=== PATIENT | male | born 1945 | race Caucasian/White ===

== ENCOUNTER 2017-06-22 02:40 | Inpatient (IN) | payer MEDICARE, BC ==
[~2017-06-22] VITALS: Ht 198.1 cm; Wt 64.9 kg
[2017-06-22] VITALS (18 sets, daily range): BP systolic 116–169; BP diastolic 61–97; Ht 198.1 cm; Wt 64.9 kg
[~2017-06-22 02:40] MED LIST changes: -SIMV-49 PO; -TRAM-420 PO
--- NOTE | 2017-06-22 02:41 | ER Report ---
History and Physical Time Seen By MD: 02:40 HPI/ROS CHIEF COMPLAINT: Ground-level fall, left hip pain HISTORY OF PRESENT ILLNESS: 72-year-old male fell at home. He is brought in by EMS complaining of left hip pain. Patient has a previous right hip fracture status post surgery. Patient has other extensive past medical history COPD, coronary artery disease status post a stent, squamous cell cancer status post chemotherapy. Patient denies syncope. He states he was trying to protect his right hip when he fell onto his left side. Patient denies head impact, neck pain, chest pain, shortness of breath. Patient denies recent illness. REVIEW OF SYSTEMS: Respiratory: No cough, no dyspnea. Cardiovascular: No chest pain, no palpitations. Gastrointestinal: No vomiting, no abdominal pain. Musculoskeletal: As above Allergies: Coded Allergies: Penicillins (Verified Allergy, Mild, CAN'T REMEMBER, 06/22/17) latex (Verified Allergy, Mild, RASH, 06/22/17) Home Meds Active Scripts Folic Acid (FOLIC ACID) 1 Mg Tablet, 1 MG PO QDAY, #90 TAB 3 Refills Prov:JASON BARBOZA ERP CONSULTANT-BC, ONC 06/09/17 Ergocalciferol (Vitamin D2) (VITAMIN D2) 50,000 Unit Capsule, 26680 UNIT PO weekly for 120 Days, #12 CAPSULE Prov:JASON BARBOZA ERP CONSULTANT-BC, ONC 04/21/17 Reported Medications Simvastatin (SIMVASTATIN) 20 Mg Tablet, 20 MG PO HS, TAB 06/22/17 Allopurinol (ZYLOPRIM) 300 Mg Tablet, 300 MG PO QDAY, TAB 03/29/16 Hydrocodone Bit/Acetaminophen (HYDROCODON-ACETAMINOPHEN 5-325) 1 Each Tablet, 1- 2 EACH PO Q4-6H Y for PAIN, TAB 03/29/16 Calcium Citrate/Vitamin D3 (CALCITRATE + VIT D CAPLET) 1 Each Tablet, 1 EACH PO QDAY 09/13/15 Finasteride (FINASTERIDE) 5 Mg Tablet, 5 MG PO QDAY 04/27/14 Tamsulosin Hcl (Flomax) 0.4 Mg Cap.sr.24h, 0.4 MG PO DAILY 03/14/12 Discontinued Reported Medications Hydrocodone Bit/Acetaminophen (HYDROCODON-ACETAMINOPHEN 5-325) 1 Each Tablet, 1 EACH PO Q4H, TAB 09/13/15 Simvastatin (Zocor) 40 Mg Tablet, 20 MG PO QHS, 0 Refills 03/02/09 Discontinued Scripts Oxycodone Hcl/Acetaminophen (PERCOCET 5-325 MG TABLET) 1 Each Tablet, 1 EACH PO Q4H Y for PAIN, #20 TAB 0 Refills Prov:DIONTE LOPEZ MD 03/29/16 Past Medical/Surgical History 1. 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 2. History of myocardial infarction, status post stenting of ascending coronary artery in 1996. 3. History of peptic ulcer disease, status post truncal vagotomy and pyloroplasty. 4. Hypertension. 5. Hyperlipidemia. 6. Chronic obstructive pulmonary disease. Reviewed Nurses Notes: Yes Old Medical Records Reviewed: Yes Hx Smoking: Yes Smoking Status: Former Smoker Exposure to Second Hand Smoke?: No Hx Substance Use Disorder: No Hx Alcohol Use: Yes Constitutional Vital Sign - Last 24 Hours 06/22/17 06/22/17 06/22/17 06/22/17 02:40 02:42 02:55 03:10 Temp 98.4 Pulse 84 83 78 84 Resp 14 B/P (MAP) 141/81 (101) 141/81 Pulse Ox 98 98 98 98 O2 Delivery Room Air 06/22/17 06/22/17 06/22/17 06/22/17 03:25 03:38 03:40 03:55 Pulse 76 77 80 B/P (MAP) 186/99 (128) Pulse Ox 97 94 95 06/22/17 06/22/17 06/22/17 04:00 04:10 04:15 Pulse 80 79 B/P (MAP) 184/94 (124) Pulse Ox 94 Physical Exam Vital signs stable, afebrile, pulse ox normal General Appearance: The patient is alert, has no immediate need for airway protection and no current signs of toxicity. Mild distress, hard of hearing, palpation of the head and neck reveals no tenderness or trauma HEENT: Pupils equal and round no injection. Oropharynx without redness or exudate, no dental trauma Respiratory: Chest is non tender, lungs are clear to auscultation. No chest wall tenderness Cardiac: regular rate and rhythm Gastrointestinal: Abdomen is soft and non tender, no masses, bowel sounds normal. Musculoskeletal: Neck: Neck is supple and non tender. Extremities have full range of motion and are non tender. There is tenderness over palpation of the left trochanteric area. The right lower extremity neurovascularly intact Skin: No rashes or lesions. DIFFERENTIAL DIAGNOSIS: After history and physical exam differential diagnosis was considered for fall in the elderly including but not limited to intracranial injury, long bone and pelvic bone fracture, spinal injury, and intrathoracic injury. Medical Decision Making Data Points Result Diagram: 06/22/17 0233 06/22/17 0233 Laboratory Hematology Test 06/22/17 02:33 06/22/17 03:30 Red Blood Count 3.86 M/uL (4.00-5.60) Mean Corpuscular Volume 99.1 fL (80.0-96.0) Mean Corpuscular Hemoglobin 33.0 pg (26.0-33.0) Mean Corpuscular Hemoglobin Concent 33.3 g/dL (32.0-36.0) Red Cell Distribution Width 15.1 % (11.5-14.5) Mean Platelet Volume 8.1 fL (7.2-11.1) Neutrophils (%) (Auto) 54.8 % (39.4-72.5) Lymphocytes (%) (Auto) 29.2 % (17.6-49.6) Monocytes (%) (Auto) 12.9 % (4.1-12.4) Eosinophils (%) (Auto) 1.8 % (0.4-6.7) Basophils (%) (Auto) 1.3 % (0.3-1.4) Nucleated RBC Relative Count (auto) 0.0 /100WBC Neutrophils # (Auto) 4.3 K/uL (2.0-7.4) Lymphocytes # (Auto) 2.3 K/uL (1.3-3.6) Monocytes # (Auto) 1.0 K/uL (0.3-1.0) Eosinophils # (Auto) 0.1 K/uL (0.0-0.5) Basophils # (Auto) 0.1 K/uL (0.0-0.1) Nucleated RBC Absolute Count (auto) 0.00 K/uL Prothrombin Time 14.3 seconds (12.0-14.4) Prothromb Time International Ratio 1.10 Activated Partial Thromboplast Time 32 seconds (23-35) Sodium Level 139 mmol/L (137-145) Potassium Level 4.1 mmol/L (3.5-5.0) Chloride Level 108 mmol/L (98-107) Carbon Dioxide Level 20 mmol/L (22-30) Blood Urea Nitrogen 16 mg/dl (9-21) Creatinine 1.60 mg/dl (0.66-1.25) Glomerular Filtration Rate Calc 42.7 Random Glucose 90 mg/dl (75-110) Calcium Level 9.0 mg/dl (8.4-10.2) Total Bilirubin 0.9 mg/dl (0.2-1.3) Aspartate Amino Transf (AST/SGOT) 16 U/L (0-35) Alanine Aminotransferase (ALT/SGPT) 29 U/L (0-56) Alkaline Phosphatase 64 U/L (0-126) Total Protein 7.4 gm/dl (6.3-8.2) Albumin 3.9 g/dl (3.5-5.0) Urine Color Julia Urine Clarity Slightly-cloudy Urine pH 5.0 pH (4.8-9.5) Urine Specific [place] 1.013 Urine Protein Negative mg/dL (NEGATIVE) Urine Glucose (UA) Negative mg/dL (NEGATIVE) Urine Ketones Trace mg/dL (NEGATIVE) Urine Blood Negative (NEGATIVE) Urine Nitrite Negative (NEGATIVE) Urine Bilirubin Negative (NEGATIVE) Urine Urobilinogen Negative mg/dL (0.2-1.9) Urine Leukocyte Esterase Small (NEGATIVE) Urine RBC None /HPF (0-2/HPF) Urine WBC 18 /HPF (0-5/HPF) Urine Squamous Epithelial Cells None /LPF (NONE-FEW) Urine Bacteria Few /HPF (NONE-FEW) Urine Mucus None /HPF (NONE-FEW) Chemistry Test 06/22/17 02:33 06/22/17 03:30 White Blood Count 7.8 k/uL (4.5-11.0) Red Blood Count 3.86 M/uL (4.00-5.60) Hemoglobin 12.7 g/dL (14.0-18.0) Hematocrit 38.2 % (42.0-52.0) Mean Corpuscular Volume 99.1 fL (80.0-96.0) Mean Corpuscular Hemoglobin 33.0 pg (26.0-33.0) Mean Corpuscular Hemoglobin Concent 33.3 g/dL (32.0-36.0) Red Cell Distribution Width 15.1 % (11.5-14.5) Platelet Count 213 K/uL (150-450) Mean Platelet Volume 8.1 fL (7.2-11.1) Neutrophils (%) (Auto) 54.8 % (39.4-72.5) Lymphocytes (%) (Auto) 29.2 % (17.6-49.6) Monocytes (%) (Auto) 12.9 % (4.1-12.4) Eosinophils (%) (Auto) 1.8 % (0.4-6.7) Basophils (%) (Auto) 1.3 % (0.3-1.4) Nucleated RBC Relative Count (auto) 0.0 /100WBC Neutrophils # (Auto) 4.3 K/uL (2.0-7.4) Lymphocytes # (Auto) 2.3 K/uL (1.3-3.6) Monocytes # (Auto) 1.0 K/uL (0.3-1.0) Eosinophils # (Auto) 0.1 K/uL (0.0-0.5) Basophils # (Auto) 0.1 K/uL (0.0-0.1) Nucleated RBC Absolute Count (auto) 0.00 K/uL Prothrombin Time 14.3 seconds (12.0-14.4) Prothromb Time International Ratio 1.10 Activated Partial Thromboplast Time 32 seconds (23-35) Glomerular Filtration Rate Calc 42.7 Calcium Level 9.0 mg/dl (8.4-10.2) Total Bilirubin 0.9 mg/dl (0.2-1.3) Aspartate Amino Transf (AST/SGOT) 16 U/L (0-35) Alanine Aminotransferase (ALT/SGPT) 29 U/L (0-56) Alkaline Phosphatase 64 U/L (0-126) Total Protein 7.4 gm/dl (6.3-8.2) Albumin 3.9 g/dl (3.5-5.0) Urine Color Julia Urine Clarity Slightly-cloudy Urine pH 5.0 pH (4.8-9.5) Urine Specific [place] 1.013 Urine Protein Negative mg/dL (NEGATIVE) Urine Glucose (UA) Negative mg/dL (NEGATIVE) Urine Ketones Trace mg/dL (NEGATIVE) Urine Blood Negative (NEGATIVE) Urine Nitrite Negative (NEGATIVE) Urine Bilirubin Negative (NEGATIVE) Urine Urobilinogen Negative mg/dL (0.2-1.9) Urine Leukocyte Esterase Small (NEGATIVE) Urine RBC None /HPF (0-2/HPF) Urine WBC 18 /HPF (0-5/HPF) Urine Squamous Epithelial Cells None /LPF (NONE-FEW) Urine Bacteria Few /HPF (NONE-FEW) Urine Mucus None /HPF (NONE-FEW) Coagulation Test 06/22/17 02:33 Prothrombin Time 14.3 seconds Prothromb Time International Ratio 1.10 Activated Partial Thromboplast Time 32 seconds Urinalysis Test 06/22/17 03:30 Urine Color Julia Urine Clarity Slightly-cloudy Urine pH 5.0 pH (4.8-9.5) Urine Specific [place] 1.013 Urine Protein Negative mg/dL (NEGATIVE) Urine Glucose (UA) Negative mg/dL (NEGATIVE) Urine Ketones Trace mg/dL (NEGATIVE) Urine Blood Negative (NEGATIVE) Urine Nitrite Negative (NEGATIVE) Urine Bilirubin Negative (NEGATIVE) Urine Urobilinogen Negative mg/dL (0.2-1.9) Urine Leukocyte Esterase Small (NEGATIVE) Urine RBC None /HPF (0-2/HPF) Urine WBC 18 /HPF (0-5/HPF) Urine Squamous Epithelial Cells None /LPF (NONE-FEW) Urine Bacteria Few /HPF (NONE-FEW) Urine Mucus None /HPF (NONE-FEW) EKG/Imaging EKG Interpretation 12 lead EK Rhythm: normal sinus rhythm [place]: normal QRS: normal ST segments: normal, no evidence of acute ischemia or dysrhythmia, comparison to previous EKG dated 01/25/70, no significant change Imaging X-ray: Left hip 3 views was obtained. I viewed the images myself on the PACS system. My interpretation of the images is: Nondisplaced intratrochanteric fracture. The radiologist interpretation had no clinically significant variation from this interpretation. X-ray: Single view portable chest x-ray was obtained. I viewed the images myself on the PACS system. My interpretation of the images is: No infiltrate, no effusion. The radiologist interpretation had no clinically significant variation from this interpretation. ED Course/Re-evaluation ED Course Patient was admitted to an examination room. H&P was done. The differential diagnoses was considered. On clinical examination. Patient has shortening and external rotation of the left lower extremity. Left lower extremity is neurovascularly intact. Diagnostic x-rays are ordered. Patient will be preop for surgery tomorrow. Diagnostic x-rays show obvious intertrochanteric fracture. Patient has adequate pain control with fentanyl, which was administered by EMS. 06/22/2017 3:59:59 am case discussed with Dr. Baer orthopedics on-call, who accepts the patient for admission. He would like the patient to go to the medical service with his history of squamous cell cancer and coronary artery disease. 06/22/2017 4:09:14 am case discussed with Dr. Terrell hospitalist on-call, who accepts patient to the medical service for preop evaluation. Decision to Disposition Date: Jun 22, 2017 Decision to Disposition Time: 03:59 Depart Departure Latest Vital Signs Vital Signs Date Time Temp Pulse Resp B/P (MAP) Pulse Ox O2 Delivery O2 Flow Rate FiO2 06/22/17 04:15 79 06/22/17 04:10 94 06/22/17 04:00 184/94 (124) 06/22/17 02:42 98.4 14 Room Air Impression: Primary Impression: Hip fracture, left Additional Impressions: COPD (chronic obstructive pulmonary disease) Coronary artery disease Hypertension Condition: Improved Disposition: Admitted from ER Problem Qualifiers Primary Impression: Hip fracture, left Encounter type: initial encounter Fracture type: closed Qualified Codes: S72.002A - Fracture of unspecified part of neck of left femur, initial encounter for closed fracture Additional Impressions: COPD (chronic obstructive pulmonary disease) COPD type: unspecified COPD Qualified Codes: J44.9 - Chronic obstructive pulmonary disease, unspecified Coronary artery disease Coronary Disease-Associated Artery/Lesion type: unspecified vessel or lesion type [place] vs. transplanted heart: unspecified whether [place] or transplanted heart Associated angina: without angina Qualified Codes: I25.10 - Atherosclerotic heart disease of [place] coronary artery without angina pectoris Hypertension Hypertension type: essential hypertension Qualified Codes: I10 - Essential ( primary) hypertension IVA BISWAS DO Jun 22, 2017 02:41
[2017-06-22 02:55] LABS: PLATELET COUNT, AUTOMATED 213 K/uL (150-450)
--- NOTE | 2017-06-22 03:03 | EKG ---
FACILITY: [facility] - [place] PATIENT NAME: HARI BLACKWOOD : [id number] MR: [id number] V: [id number] EXAM DATE: ORDERING PHYSICIAN: IVA BISWAS TECHNOLOGIST: GABRIELLE Test Reason : PRE-OP HIP FX Blood Pressure : / mmHG Vent. Rate : 079 BPM Atrial Rate : 079 BPM P-R Int : 126 ms QRS Dur : 092 ms QT Int : 406 ms P-R-T Axes : 076 079 088 degrees QTc Int : 465 ms Normal sinus rhythm Normal ECG When compared with ECG of 25-JAN-2017 03:50, No significant change was found Confirmed by HAMILTON ORTA ([id number]) on 06/22/2017 3:05:09 PM Referred By: Confirmed By:HAMILTON ORTA
[2017-06-22 03:05] LABS: INR 1.1
--- NOTE | 2017-06-22 03:40 | RADIOLOGY IMAGING REPORT ---
FACILITY: [facility] - [place] PATIENT NAME: José Miguel Lara : 1945 MR: [id number] V: [id number] EXAM DATE: ORDERING PHYSICIAN: IVA BISWAS TECHNOLOGIST: Location: [facility] [place] Patient: José Miguel Lara : 1945 Visit/Account:[id number] Date of Sevice: 06/22/2017 HIP LEFT HISTORY: Fall Pelvis and left hip films FINDINGS: Study demonstrates an intertrochanteric fracture of the left hip. No displacement or angulation noted . Pelvis intact. Previous ORIF with 3 threaded bone screws through the right femoral neck. Atherosclerotic disease within the iliac and SFA vasculature. Nonspecific bowel gas pattern. IMPRESSION: 1. Nondisplaced, nonangulated intratrochanteric fracture of the left hip. Report Dictated By: Ilya Contreras MD at 06/22/2017 3:32 AM Report E-Signed By: Ilya Contreras MD at 06/22/2017 3:36 AM WSN:[id number]
--- NOTE | 2017-06-22 03:46 | RADIOLOGY IMAGING REPORT ---
FACILITY: [facility] - [place] PATIENT NAME: José Miguel Lara : 1945 MR: [id number] V: [id number] EXAM DATE: ORDERING PHYSICIAN: IVA BISWAS TECHNOLOGIST: Location: [facility] - [place] Patient: José Miguel Lara : 1945 Visit/Account:[id number] Date of Sevice: 06/22/2017 CHEST SINGLE AP Additional pertinent History: Fall COMPARISON STUDIES: 01/25/2017 FINDINGS: Support lines and catheters: None Lungs and Pleura: No infiltrates or consolidations. Slight increased asymmetric lung markings seen a djacent to the anterior right third rib. This is slightly more conspicuously seen within the previous studies. Heart and vasculature: Prominence of the ascending and descending thoracic aorta. Josefina and Mediastinum: Negative. Bones and Chest wall: No rib fractures noted. Mild scoliotic curvature of the thoracolumbar spine. Upper Abdomen: Negative. IMPRESSION: 1. Negative chest for acute cardiopulmonary disease. Ectasia of the aorta. Slight asymmetric lung mar ari change in the right upper lung field laterally. This is likely postinflammatory in nature. Recom mend follow-up chest film 3-6 months to assure stability. Report Dictated By: Ilya Contreras MD at 06/22/2017 3:37 AM Report E-Signed By: Ilya Contreras MD at 06/22/2017 3:41 AM WSN:[id number]
[2017-06-22] MEDS ORDERED: EMS NS 0.9%(*) 1000 ML BAG 1,000 ML IV ONE (04:25)
[2017-06-22] MEDS ORDERED: SIMV-49 PO (05:25)
[2017-06-22] MEDS ORDERED: MORPHINE(*) 4 MG/ML SDV IVP PRN (06:10)
[2017-06-22] MEDS ORDERED: MORPHINE 4 MG/ML SYR ONE (06:16)
[2017-06-22] MEDS ORDERED: APAP/HYDROCODONE 325/5 TAB PO PRN (06:20)
[2017-06-22] MEDS ORDERED: NS(*) 0.9% 1000 ML BAG 1,000 ML IV PRN (06:20)
[2017-06-22] MEDS ORDERED: MORPHINE 4 MG/ML SYR IVP PRN ×2 (06:20→06:35)
[2017-06-22] MEDS ORDERED: ONDANSETRON 4 MG/2 ML VIAL IVP PRN (06:20)
[2017-06-22] MEDS ORDERED: ACETAMINOPHEN 325 MG TAB PO PRN (06:20)
--- NOTE | 2017-06-22 06:30 | History & Physical ---
History of Present Illness Chief Complaint s/p Fall with L-hip pain History of Present Illness is a 72-year-old male with PMH of HTN, CKD-III, CAD s/p stent many years ago and asymptomatic, Nephrolithiasis, PUD, Dyslipidemia, Osteoarthritis, Gout and Throat Cancer s/p radiation of neck and Tracheostomy who had afall at home around 1:30am when he got up help his . He was brought in by EMS complaining of left hip pain. Patient has a previous right hip fracture status post surgery. Patient denies syncope. He stated he was trying to protect his right hip when he fell onto his left side. Patient denies head impact, neck pain, chest pain, shortness of breath. Patient denied recent illness. During the ER evaluation he found to have L-hip fracture on XR. He also has high BUN/Cr with GFR 43ml/min. He denies having COPD/Asthma and he quit smoking in 2008 when he developed throat cancer. Case was discussed with by ER-MD for possible repair today. I discussed the case with the ER-MD and admitted the patient for further evaluation, clearance for surgery. and management His BP has been on the high side and I will use Beta Daljit to control his BP. History Home Meds Active Scripts Folic Acid (FOLIC ACID) 1 Mg Tablet, 1 MG PO QDAY, #90 TAB 3 Refills Prov:JASON BARBOZA DISPATCHER RELAY-BC, ONC 06/09/17 Ergocalciferol (Vitamin D2) (VITAMIN D2) 50,000 Unit Capsule, 77199 UNIT PO weekly for 120 Days, #12 CAPSULE Prov:JASON BARBOZA DISPATCHER RELAY-BC, ONC 04/21/17 Reported Medications Simvastatin (SIMVASTATIN) 20 Mg Tablet, 20 MG PO HS, TAB 06/22/17 Allopurinol (ZYLOPRIM) 300 Mg Tablet, 300 MG PO QDAY, TAB 03/29/16 Hydrocodone Bit/Acetaminophen (HYDROCODON-ACETAMINOPHEN 5-325) 1 Each Tablet, 1- 2 EACH PO Q4-6H Y for PAIN, TAB 03/29/16 Calcium Citrate/Vitamin D3 (CALCITRATE + VIT D CAPLET) 1 Each Tablet, 1 EACH PO QDAY 09/13/15 Finasteride (FINASTERIDE) 5 Mg Tablet, 5 MG PO QDAY 04/27/14 Tamsulosin Hcl (Flomax) 0.4 Mg Cap.sr.24h, 0.4 MG PO DAILY 03/14/12 Discontinued Reported Medications Hydrocodone Bit/Acetaminophen (HYDROCODON-ACETAMINOPHEN 5-325) 1 Each Tablet, 1 EACH PO Q4H, TAB 09/13/15 Simvastatin (Zocor) 40 Mg Tablet, 20 MG PO QHS, 0 Refills 03/02/09 Discontinued Scripts Oxycodone Hcl/Acetaminophen (PERCOCET 5-325 MG TABLET) 1 Each Tablet, 1 EACH PO Q4H Y for PAIN, #20 TAB 0 Refills Prov:DIONTE LOPEZ MD 03/29/16 Allergies: Coded Allergies: Penicillins (Verified Allergy, Mild, CAN'T REMEMBER, 06/22/17) latex (Verified Allergy, Mild, RASH, 06/22/17) Patient History: FH: cancer AUNT FH: leukemia GRANDFATHER FH: lung cancer FATHER, Onset:68 Hx Smoking: Yes Smoking Status: Former Smoker Exposure to Second Hand Smoke?: No When Quit Tobacco?: 2008 Caffeine Intake: Soda Caffeine/Cups Per Day: rarely Hx Alcohol Use: Yes Hx Substance Use Disorder: No Social Drug Use: Occasional Social Drugs: Marijuana, LSD Review of Systems Constitutional: No Fever, No Weight Loss, No Weight Gain, No Chills Neurological: No Syncope, No Confusion, No Weakness, No Dizziness Eyes: No Vision Change ENT: Hearing Loss, No Sinus Congestion, No Sore Throat Cardiovascular: No Chest Pain, No Palpitations Respiratory: No Shortness of Breath, No Cough, No Wheezing Gastrointestinal: No Nausea, No Vomiting, No Diarrhea, No Dysphagia, No Constipation, No Abdominal Pain Genitourinary: No Dysuria, No Hematuria Musculoskeletal: Pain, Impaired Mobility, No Sprain, No Strain Psychiatric: No Depression, No Anxiety Exam Vital Signs Vital Signs Date Time Temp Pulse Resp B/P (MAP) Pulse Ox O2 Delivery O2 Flow Rate FiO2 06/22/17 05:15 95 06/22/17 05:04 98.2 90 20 169/97 (121) Room Air 96.0 General Appearance: Alert, Awake, No Acute Distress, Afebrile Neuro: No Gross deficits Eyes: PERRLA ENT: Normal, Other (chronic MS neck changes) Neck: No Masses Cardiovascular: Normal Rhythm & Peripheral Pulses Respiratory: No Respiratory Distress GI: Abd Soft and Non-Tender Extremities: Other (Tender L-LE on ROM) Integumentary: Skin Intact without Lesion / Mass Psych: Alert & Oriented X3, Appropriate Mood & Affect Medical Decision Making Data Points Result Diagram: 06/22/1723206/22/17232 EKG / Imaging Monitor Interpretation: Normal Sinus Rhythm Imaging reviewed Pre-Admit Course ED Medications reviewed Medical Record Review: Yes Assessment and Plan Problems: (1) Hypertension Status: Acute Assessment & Plan: His BP has been on the high side and that could be due to his hip pain. He is not currently on any BP medication. I will start him on Beta Daljti to control his BP and also protect his heart. Metoprolol 25mg po bid. I will keep him on NPO for now and then 2gm Na diet Heart healthy diet after the surgery (2) Closed left hip fracture Status: Acute Assessment & Plan: L-Hip Fracture after fall at home. Dr. Odom will see him today and possible hip repair today. Management as per Orthopedics (3) Coronary artery disease Status: Acute Assessment & Plan: His CAD status is pretty stable and no recent CP but occasionally gets SOB. His EKG is WNL. He will receive Beta Daljit for his BP. He is adequately cleared for surgical procedure. Central Venous Access Medical Necessity for Access: IV Access, Medication Administration Time Spent on Plan of Care: < 30 min Copies to: WILBER ODOM MD; ELISHA DOHERTY MD Venous Thromboembolism VTE Risk Physician Assess for VTE Risk: Yes Patient's VTE Risk: Low VTE Diagnostic Test 2 Days Prior to Admit: No Antithrombotics Is Pt On Any Antithrombotics?: No Exam Sepsis Risk: No Definite Risk Problem Qualifiers (1) Hypertension: Hypertension type: essential hypertension Qualified Codes: I10 - Essential ( primary) hypertension (2) Coronary artery disease: Coronary Disease-Associated Artery/Lesion type: unspecified vessel or lesion type [place] vs. transplanted heart: unspecified whether [place] or transplanted heart Associated angina: without angina Qualified Codes: I25.10 - Atherosclerotic heart disease of [place] coronary artery without angina pectoris ALEX MILLER MD Jun 22, 2017 05:34
[2017-06-22] MEDS ORDERED: FAMOTIDINE(*) 20MG/50ML PREMIX 50 ML IVPB ONE (08:35)
[2017-06-22] MEDS: METOPROLOL TART 50 MG TAB PO SCH ×2 (08:39→21:15)
[2017-06-22] MEDS ORDERED: CLINDAMYCIN(*) 900 MG/NS 50 ML 50 ML IVPB PRN (08:40)
[2017-06-22] MEDS: FINASTERIDE 5 MG TAB PO SCH (09:00)
[2017-06-22] MEDS: ALLOPURINOL 300 MG TAB PO SCH (09:00)
[2017-06-22] MEDS: PANTOPRAZOLE SOD 40 MG TABEC PO SCH (09:00)
[2017-06-22] MEDS: TAMSULOSIN HCL 0.4 MG CAP PO SCH (09:00)
--- NOTE | 2017-06-22 09:23 | CONSULTATION ---
EVENT DATE: June 22, 2017 REASON FOR CONSULTATION Left hip fracture. HISTORY OF PRESENT ILLNESS This patient is a 72-year-old male who presented to the emergency department late last evening and into the morning with left hip pain and irritation after falling. He said he was trying to move and got his leg twisted up and then fell and landed on his left hip. He had had a previous right hip fracture in the past. He went in to the emergency department where he was found to have a left intertrochanteric hip fracture. The emergency department had him admitted to the medical service. I am being consulted for further evaluation and possible fixation of the left hip. CURRENT MEDICATIONS Please see medication reconciliation form for medications currently. ALLERGIES SPANDEX and PENICILLIN. PAST MEDICAL HISTORY Basal cell carcinoma and a prior stent in his heart. Otherwise he says he has no major medical problems associated with this. PERSONAL AND SOCIAL HISTORY The patient does not smoke. He says he drinks occasionally, maybe just occasional nightcaps. He also states that he lives at home with his . REVIEW OF SYSTEMS Otherwise negative except for the left hip. He denies any other major problems or issues associated with the review of systems. PHYSICAL EXAMINATION GENERAL: The patient is sitting in the exam bed in no acute distress. He is cooperative and answers all questions appropriately. HEENT: Normocephalic. Extraocular movements intact. NECK: Supple. Trachea midline. CHEST: Rises and falls symmetrically. He has no labored breathing or wheezing. NEUROLOGIC: He is able to understand and follow verbal commands. EXTREMITIES: He does have a shortened and externally rotated hip and a little bit of pain with any type of movement associated with this. He is able to wiggle his toes and says he has light touch sensation on the foot. His contralateral extremity is otherwise unremarkable. LABORATORY AND RADIOLOGY X-rays include two views of the left hip, which show a nondisplaced intertrochanteric hip fracture with no signs of obvious comminution. ASSESSMENT AND PLAN This patient is a 72-year-old male with a left hip intertrochanteric hip fracture. I talked to him about the implications of this as well as treatment options. Given the fact that it is an unstable fracture and an intertrochanteric fracture, he wants to proceed with fixation today, May. The risks and benefits were discussed with the patient. Informed consent was obtained at the bedside today. We will get him set up to do this in the near future. JEFFREY
[2017-06-22] MEDS ORDERED: NORMOSOL R SOLN(*) 1000 ML BAG 1,000 ML IV ONE (09:29)
[2017-06-22] MEDS ORDERED: fentaNYL CITR 100 MCG/2 ML AMP ONE ×3 (10:21→12:11)
[2017-06-22] MEDS ORDERED: PROPOFOL EMUL(*) 10MG/ML 20 ML 20 ML ONE (10:22)
[2017-06-22] MEDS ORDERED: LIDOCAINE MPF 1% 5 ML VIAL ONE (10:22)
[2017-06-22] MEDS ORDERED: SUCCINYLCHOL CHL 100MG/5ML SYR IVP ONE (10:30)
[2017-06-22] MEDS ORDERED: ONDANSETRON 4 MG/2 ML VIAL ONE (10:44)
[2017-06-22] MEDS ORDERED: DEXAMETHASONE SOD 4 MG/ML VIAL ONE (10:44)
--- NOTE | 2017-06-22 12:10 | RADIOLOGY IMAGING REPORT ---
FACILITY: [facility] [place] PATIENT NAME: José Miguel Lara : 1945 MR: [id number] V: [id number] EXAM DATE: ORDERING PHYSICIAN: WILBER ODOM TECHNOLOGIST: Location: [facility] [place] Patient: José Miguel Lara : 1945 Visit/Account:[id number] Date of Sevice: 06/22/2017 C-ARM FLUORO 1 HR Indication: Intraoperative fluoroscopy of the left hip. Comparison: Left hip radiographs dated 06/22/2017. Findings/impression: 1. Fluoroscopy time: 55.3 seconds. 2. Number of images: 12. 3. Please see surgical note for additional details. Report Dictated By: Sergio Bain MD at 06/22/2017 12:04 PM Report E-Signed By: Sergio Bain MD at 06/22/2017 12:05 PM WSN:[id number]
[2017-06-22] MEDS ORDERED: PROMETHAZINE 25 MG/ML 1 ML AMP ONE (12:29)
[2017-06-22] MEDS ORDERED: HYDROmorphone HCL 2 MG/ML SDV IVP PRN (12:50)
[2017-06-22] MEDS ORDERED: MAGNESIUM HYDROXIDE* 30ML UDCP PO PRN (12:50)
[2017-06-22] MEDS ORDERED: MAGNESIUM CITRATE 300 ML BTL PO PRN (12:50)
[2017-06-22] MEDS ORDERED: PROMETHAZINE HCL(*) 25 MG SUPP PR PRN (12:50)
[2017-06-22] MEDS ORDERED: diphenhydrAMINE 50 MG/ML VIAL IVP PRN (12:50)
[2017-06-22] MEDS ORDERED: FLUSH 10 ML SYR IVP PRN (12:50)
[2017-06-22] MEDS ORDERED: LR 1000 ML BAG 1000 ML IV PRN (12:50)
[2017-06-22] MEDS ORDERED: ZOLPIDEM TARTRATE 5 MG TAB PO PRN (12:50)
[2017-06-22] MEDS ORDERED: BISACODYL 10 MG SUPP PR PRN (12:50)
[2017-06-22] MEDS ORDERED: PROMETHAZINE 25 MG/ML 1 ML AMP IVP PRN (12:50)
[2017-06-22] MEDS ORDERED: diphenhydrAMINE 25 MG CAP PO PRN (12:50)
--- NOTE | 2017-06-22 12:54 | OPERATIVE REPORT 1 ---
EVENT DATE: June 22, 2017 SURGEON: Jeffry Lopez MD ANESTHESIOLOGIST: Jerald Green MD ANESTHESIA: General LMA anesthesia. BUILDING STONECUTTER: LAURYN Servin PREOPERATIVE DIAGNOSIS Left hip intertrochanteric hip fracture. POSTOPERATIVE DIAGNOSIS Left hip intertrochanteric hip fracture. PROCEDURE PERFORMED Fixation of the left hip intertrochanteric fracture with a cephalomedullary nail. FINDINGS The patient had a slightly displaced intratrochanteric fracture. It was amenable for fixation. ESTIMATED BLOOD LOSS 47 mL DRAINS None. COMPLICATIONS None. TOURNIQUET TIME Not applicable. IMPLANTS USED [place] short gamma nail of 125-degree variety, a 35 mm distal screw, and a 105 mm set screw. SPECIMENS None. INDICATIONS AND HISTORY This patient is a 72-year-old male who fell yesterday after he got his leg twisted up in a car pit and fell on his left hip. He was found to have a left intertrochanteric hip fracture in the emergency department, so he was admitted to the medicine service. I consulted on him this morning, and then we got him set up to do a fixation of the left hip intertrochanteric fracture today as he is a community ambulator and wanted to go ahead with that as soon as possible to get him up and moving, and so we went over the risks and benefits, and informed consent was obtained at the visit today by the bedside. DESCRIPTION OF PROCEDURE The patient was brought into the operating room. He and the procedure were both verified. He was placed supine on the operating table and induced and intubated by Anesthesia. The left lower extremity was then prepped and draped in the usual sterile fashion after we put him on the traction table, and then a timeout was observed verifying the correct patient and procedure. A standard incision was made just superior to the greater trochanter. I was able to go through the skin and subcutaneous tissue and then get down onto the greater trochanter. I then was able to place the guidewire under C-arm visualization into the intramedullary aspect and then down the canal itself. Once I did this and verified that we were in good position on the C-arm images on both AP and lateral, I was then able to use the awl to get in through the space itself in order to make it amenable for the fracture fixation. We then chose a 125 gamma nail which was a short gamma nail. I then put this onto the standard handle, removed the awl, and then put this down into the intramedullary canal. I confirmed it was in the intramedullary canal through C- arm images, and it did reduce the fracture pretty well, and so therefore this was the final component chosen. Once I had it in good position, I then made a separate incision just distally to this and then put in the part for the medullary portion of the cephalomedullary nail. I then put this against the outer cortex and then drilled up into the center-center position on both AP and laterals in order to verify that it was in good position. Once we got the guide pin in to within a couple of millimeters of the cortex of the central portion of the femoral head, I measured just over 100, and so therefore I put 105 mm gamma screw up into the head as it had adequate space available for it to accommodate this. Once it was set in place and everything looked good on all the x-ray images, I then put in the set screw in the top portion of the cephalomedullary nail without any difficulty. We then turned attention to the distal aspect where using the outrigger guide, I was then able to place a distal static screw. This was done by first making a small incision in the skin, putting in the guide in this area, drilling through both cortices, measuring to 35 mm, and then placing a 35 mm screw. We then took final pictures verifying that everything was in good position. There were no signs of problems with any type of movement of the leg with internal and external rotation within the traction set or abduction or adduction. Everything moved as a unit and looked good, and so therefore we removed all instrumentation and then were able to irrigate with copious amounts of saline. We then closed the deep tissue with 0 Vicryl, followed by 2-0 Vicryl in the subcutaneous tissue, and then a 4-0 Monocryl in the skin with the ends buried. The wounds were then dressed with Steri-Strips, gauze 4 x 4's, and a soft dressing. The patient was awakened, extubated, and transferred to the PACU in stable condition. He will be admitted to the medicine service, and we will follow along in consult. JEFFREY
[2017-06-22] MEDS: CLINDAMYCIN 150 MG CAP PO SCH (21:14)
[2017-06-22] MEDS: SIMVASTATIN 20 MG TAB PO SCH (21:15)
[2017-06-23] MEDS: ONDANSETRON 4 MG/2 ML VIAL IVP PRN (02:40)
[2017-06-23 03:52] VITALS: BP 159/85
[2017-06-23 07:17] LABS: PLATELET COUNT, AUTOMATED 160 K/uL (150-450)
[2017-06-23] MEDS ORDERED: diphenhydrAMINE 25 MG CAP PO PRN (07:45)
[2017-06-23] MEDS: TAMSULOSIN HCL 0.4 MG CAP PO SCH (08:40)
[2017-06-23] MEDS: CLINDAMYCIN 150 MG CAP PO SCH (08:40)
[2017-06-23] MEDS: ENOXAPARIN 40 MG/0.4ML SYR SC SCH (08:40)
[2017-06-23] MEDS: FINASTERIDE 5 MG TAB PO SCH (08:40)
[2017-06-23] MEDS: PANTOPRAZOLE SOD 40 MG TABEC PO SCH (08:40)
[2017-06-23] MEDS: ALLOPURINOL 300 MG TAB PO SCH (08:40)
[2017-06-23] MEDS: METOPROLOL TART 50 MG TAB PO SCH ×2 (08:41→20:35)
[2017-06-23 08:44] VITALS: BP 165/90
--- NOTE | 2017-06-23 09:11 | Hospitalist Progress Note ---
Subjective Progress Notes Subjective This patient underwent operative repair for hip fracture yesterday. He had no acute events overnight. Patient Complains of: Cardiovascular: No: Chest Pain Respiratory: No: Shortness of Breath Physical Exam Vital Signs Date Time Temp Pulse Resp B/P (MAP) Pulse Ox O2 Delivery O2 Flow Rate FiO2 06/23/17 08:44 98.2 64 16 165/90 (115) 92 Room Air 06/23/17 03:52 2.0 Cardiovascular: Regular Rate and Rhythm Respiratory: Clear to Auscultation Result Diagram: 06/23/17 0655 06/23/17 0500 Monitor Interpretation: Normal Sinus Rhythm Assessment and Plan Problems: (1) Closed left hip fracture Status: Acute Assessment & Plan: He is on Lovenox prophylaxis. (2) Hypertension Status: Acute Assessment & Plan: He has had elevated blood pressures since admission, but is not on chronic treatment at home. He has been started on metoprolol. (3) Coronary artery disease Status: Acute Assessment & Plan: He does have a history of coronary artery disease with stent placement, but is not on chronic antiplatelet therapy. Central Venous Access Medical Necessity for Access: IV Access, Medication Administration Exam Sepsis Risk: No Definite Risk Problem Qualifiers (1) Hypertension: Hypertension type: essential hypertension Qualified Codes: I10 - Essential ( primary) hypertension (2) Coronary artery disease: Coronary Disease-Associated Artery/Lesion type: unspecified vessel or lesion type [place] vs. transplanted heart: unspecified whether [place] or transplanted heart Associated angina: without angina Qualified Codes: I25.10 - Atherosclerotic heart disease of [place] coronary artery without angina pectoris HAMILTON ORTA DO Jun 23, 2017 09:11
[2017-06-23 11:20] VITALS: BP 132/73
[2017-06-23 15:11] VITALS: BP 87/65
[2017-06-23] MEDS: NS(*) 0.9% 1000 ML BAG 1,000 ML IV PRN (16:14)
[2017-06-23 19:31] VITALS: BP 120/68
[2017-06-23] MEDS: SIMVASTATIN 20 MG TAB PO SCH (20:35)
[2017-06-24] MEDS: NS(*) 0.9% 1000 ML BAG 1,000 ML IV PRN (01:18)
[2017-06-24 03:34] VITALS: BP 137/86
[2017-06-24 07:24] VITALS: BP 154/76
[2017-06-24] MEDS: PANTOPRAZOLE SOD 40 MG TABEC PO SCH (08:38)
[2017-06-24] MEDS: ALLOPURINOL 300 MG TAB PO SCH (08:38)
[2017-06-24] MEDS: FINASTERIDE 5 MG TAB PO SCH (08:39)
[2017-06-24] MEDS: TAMSULOSIN HCL 0.4 MG CAP PO SCH (08:39)
[2017-06-24] MEDS: METOPROLOL TART 50 MG TAB PO SCH ×2 (08:39→20:37)
[2017-06-24] MEDS: ENOXAPARIN 40 MG/0.4ML SYR SC SCH (08:41)
[2017-06-24 10:59] VITALS: BP 118/68
--- NOTE | 2017-06-24 12:16 | Hospitalist Progress Note ---
Subjective Progress Notes Subjective Patient without new complaints. Physical Exam Vital Signs Date Time Temp Pulse Resp B/P (MAP) Pulse Ox O2 Delivery O2 Flow Rate FiO2 06/24/17 10:59 98.0 72 14 118/68 (85) Nasal Cannula 0.5 06/24/17 10:02 92 Intake and Output 06/25/17 07:00 Intake Total 420 ml Output Total 275 ml Balance 145 ml Intake Oral 420 ml Output Urine Total 275 ml # Voids 3 General Appearance: Alert, Awake, No Acute Distress Neuro: No Gross deficits Eyes: PERRLA Cardiovascular: Regular Rate and Rhythm Respiratory: Clear to Auscultation GI: Soft and Non-Tender Extremities: Warm, Perfused Psych: Appropriate Mood & Affect Result Diagram: 06/24/1752606/24/17526 Monitor Interpretation: Normal Sinus Rhythm Assessment and Plan Problems: (1) Closed left hip fracture Status: Acute Assessment & Plan: He is on Lovenox prophylaxis. (2) Hypertension Status: Acute Assessment & Plan: He had elevated blood pressures on admission, but was not on chronic treatment at home. He was started on metoprolol and his pressures have improved. (3) Coronary artery disease Status: Acute Assessment & Plan: He does have a history of coronary artery disease with stent placement, but is not on chronic antiplatelet therapy. (4) CKD (chronic kidney disease) Status: Chronic Assessment & Plan: Creatinine is 1.3 today. This appears to be near his baseline. Fluids stopped. Will repeat a BMP in the am. (5) Postoperative anemia Status: Acute Assessment & Plan: Hemoglobin dropped to 9.2. Repeat H/H ordered for am. Central Venous Access Medical Necessity for Access: IV Access, Medication Administration Time Spent on Plan of Care: < 30 min Exam Sepsis Risk: No Definite Risk Problem Qualifiers (1) Hypertension: Hypertension type: essential hypertension Qualified Codes: I10 - Essential ( primary) hypertension (2) Coronary artery disease: Coronary Disease-Associated Artery/Lesion type: unspecified vessel or lesion type [place] vs. transplanted heart: unspecified whether [place] or transplanted heart Associated angina: without angina Qualified Codes: I25.10 - Atherosclerotic heart disease of [place] coronary artery without angina pectoris ALFRED LITTLE MD Jun 24, 2017 12:16
[2017-06-24] MEDS: DOCUSATE SODIUM 100 MG CAP PO SCH ×2 (12:20→20:36)
[2017-06-24 16:11] VITALS: BP 128/69
[2017-06-24 19:11] VITALS: BP 156/91
[2017-06-24] MEDS: SIMVASTATIN 20 MG TAB PO SCH (20:36)
[2017-06-24 22:50] VITALS: BP 145/80
[2017-06-25 02:11] VITALS: BP 178/86
[2017-06-25 02:38] VITALS: BP 168/85
[2017-06-25 02:57] VITALS: BP 156/78
[2017-06-25 07:15] VITALS: BP 170/90
--- NOTE | 2017-06-25 08:02 | Hospitalist Depart ---
Discharge Summary Reason for Hosp/Final Diag: (1) Closed left hip fracture Status: Acute Hospital Course & Plan: He is on Lovenox prophylaxis. (2) Hypertension Status: Acute Hospital Course & Plan: He had elevated blood pressures on admission, but was not on chronic treatment at home. He was started on metoprolol and his pressures have improved, but are still elevated. Will increase metoprolol to 50mg bid. (3) Coronary artery disease Status: Acute Hospital Course & Plan: He does have a history of coronary artery disease with stent placement, but is not on chronic antiplatelet therapy. BB started for HTN. Will start ASA 81mg a day. He likely would benefit from a statin, but will defer to his PCP. (4) CKD (chronic kidney disease) Status: Chronic Hospital Course & Plan: Creatinine is 1.2 today. This appears to be near his baseline. Fluids stopped. Will need to repeat a BMP in a few days to check creatinine on ASA. (5) Postoperative anemia Status: Acute Hospital Course & Plan: Hemoglobin dropped from admission but stable at 9.6. He should have another checked in a few days. (6) Abnormal chest xray Status: Chronic Hospital Course & Plan: He has slight asymmetric lung marking changes in the RUL that was recommended to have a follow up in 3-6 months. Departure Weight (Pounds): 143 Weight (Ounces): 1.0 Result Diagram: 06/25/17 0556 06/25/17 0556 Item Value Date Time Hemoglobin 12.7 g/dL L 06/22/17 0233 Hemoglobin 10.2 g/dL L 06/23/17 0655 Hemoglobin 9.2 g/dL L 06/24/17 0527 Hemoglobin 9.6 g/dL L 06/25/17 0556 White Blood Count 7.8 k/uL 06/22/17 0233 White Blood Count 13.7 k/uL H 06/23/17 0655 Platelet Count 213 K/uL 06/22/17 0233 Platelet Count 160 K/uL 06/23/17 0655 Prothromb Time International Ratio 1.10 06/22/17 0233 Creatinine 1.60 mg/dl H 06/22/17 0233 Creatinine 1.30 mg/dl H 06/23/17 0500 Creatinine 1.30 mg/dl H 06/24/17 0527 Creatinine 1.20 mg/dl 06/25/17 0556 Blood Urea Nitrogen 11 mg/dl 06/25/17 0556 Blood Urea Nitrogen 15 mg/dl 06/24/17 0527 Blood Urea Nitrogen 17 mg/dl 06/23/17 0500 Blood Urea Nitrogen 16 mg/dl 06/22/17 0233 Potassium Level 4.1 mmol/L 06/22/17 0233 Potassium Level 4.7 mmol/L 06/23/17 0500 Potassium Level 4.3 mmol/L 06/24/17 0527 Potassium Level 3.9 mmol/L 06/25/17 0556 Sodium Level 137 mmol/L 06/25/17 0556 Sodium Level 136 mmol/L L 06/24/17 0527 Sodium Level 137 mmol/L 06/23/17 0500 Sodium Level 139 mmol/L 06/22/17 0233 Urine Leukocyte Esterase Small H 06/22/17 0330 Urine RBC None /HPF 06/22/17 0330 Urine WBC 18 /HPF 06/22/17 0330 Urine Squamous Epithelial Cells None /LPF 06/22/17 0330 Urine Bacteria Few /HPF 06/22/17 0330 Urine Mucus None /HPF 06/22/17 0330 Aspartate Amino Transf (AST/SGOT) 16 U/L 06/22/17 0233 Alanine Aminotransferase (ALT/SGPT) 29 U/L 06/22/17 0233 Alkaline Phosphatase 64 U/L 06/22/17 0233 Total Protein 7.4 gm/dl 06/22/17 0233 Total Bilirubin 0.9 mg/dl 06/22/17 0233 Imaging 06/22/17 CXR - 1. Negative chest for acute cardiopulmonary disease. Ectasia of the aorta. Slight asymmetric lung marking change in the right upper lung field laterally. This is likely postinflammatory in nature. Recommend follow-up chest film 3-6 months to assure stability. 06/22/17 Hip Xray - 1. Nondisplaced, nonangulated intratrochanteric fracture of the left hip. EKG Vent. Rate : 079 BPM Atrial Rate : 079 BPM P-R Int : 126 ms QRS Dur : 092 ms QT Int : 406 ms P-R-T Axes : 076 079 088 degrees QTc Int : 465 ms Normal sinus rhythm Normal ECG When compared with ECG of 25-JAN-2017 03:50, No significant change was found Confirmed by HAMILTON ORTA ([id number]) on 06/22/2017 3:05:09 PM Condition: Improved Discharge: [facility] Discharge Instructions Home Meds Active Scripts Folic Acid (FOLIC ACID) 1 Mg Tablet, 1 MG PO QDAY, #90 TAB 3 Refills Prov:JASON BARBOZA Brianna SCIENTIFIC DIRECTOR-BC, ONC 06/09/17 Ergocalciferol (Vitamin D2) (VITAMIN D2) 50,000 Unit Capsule, [address]393 UNIT PO weekly for 120 Days, #12 CAPSULE Prov:JASON BARBOZA Brianna SCIENTIFIC DIRECTOR-BC, ONC 04/21/17 Reported Medications Simvastatin (SIMVASTATIN) 20 Mg Tablet, 20 MG PO HS, TAB 06/22/17 Allopurinol (ZYLOPRIM) 300 Mg Tablet, 300 MG PO QDAY, TAB 03/29/16 Hydrocodone Bit/Acetaminophen (HYDROCODON-ACETAMINOPHEN 5-325) 1 Each Tablet, 1- 2 EACH PO Q4-6H Y for PAIN, TAB 03/29/16 Calcium Citrate/Vitamin D3 (CALCITRATE + VIT D CAPLET) 1 Each Tablet, 1 EACH PO QDAY 09/13/15 Finasteride (FINASTERIDE) 5 Mg Tablet, 5 MG PO QDAY 04/27/14 Tamsulosin Hcl (Flomax) 0.4 Mg Cap.sr.24h, 0.4 MG PO DAILY 03/14/12 Discontinued Reported Medications Hydrocodone Bit/Acetaminophen (HYDROCODON-ACETAMINOPHEN 5-325) 1 Each Tablet, 1 EACH PO Q4H, TAB 09/13/15 Simvastatin (Zocor) 40 Mg Tablet, 20 MG PO QHS, 0 Refills 03/02/09 Discontinued Scripts Oxycodone Hcl/Acetaminophen (PERCOCET 5-325 MG TABLET) 1 Each Tablet, 1 EACH PO Q4H Y for PAIN, #20 TAB 0 Refills Prov:DIONTE LOPEZ MD 03/29/16 Diet: Regular Activity: With Walker Special Instructions: Venous Thromboembolism Antithrombotics Is Pt On Any Antithrombotics?: No Problem Qualifiers (1) Hypertension: Hypertension type: essential hypertension Qualified Codes: I10 - Essential ( primary) hypertension (2) Coronary artery disease: Coronary Disease-Associated Artery/Lesion type: unspecified vessel or lesion type [place] vs. transplanted heart: unspecified whether [place] or transplanted heart Associated angina: without angina Qualified Codes: I25.10 - Atherosclerotic heart disease of [place] coronary artery without angina pectoris WILLIAM MARLOW MD Jun 25, 2017 08:02
[2017-06-25] MEDS: ONDANSETRON 4 MG/2 ML VIAL IVP PRN (08:29)
[2017-06-25] MEDS: TAMSULOSIN HCL 0.4 MG CAP PO SCH (08:29)
[2017-06-25] MEDS: PANTOPRAZOLE SOD 40 MG TABEC PO SCH (08:29)
[2017-06-25] MEDS: FINASTERIDE 5 MG TAB PO SCH (08:29)
[2017-06-25] MEDS: ALLOPURINOL 300 MG TAB PO SCH (08:29)
[2017-06-25] MEDS: DOCUSATE SODIUM 100 MG CAP PO SCH (08:29)
[2017-06-25] MEDS: ENOXAPARIN 40 MG/0.4ML SYR SC SCH (08:29)
[2017-06-25] MEDS ORDERED: ASPIRIN 81 MG ENTERIC COATED PO SCH (09:00)
[2017-06-25] MEDS ORDERED: METOPROLOL TART 50 MG TAB PO SCH (09:00)
== END 2017-06-25 10:15 | DRG 482 ==
LOC: ER 02:43 → MED 04:24
PROVIDERS: ADMIT Specialist; ATTEND Specialist
PROC: 0QS706Z Reposition Left Upper Femur with Intramedullary Internal Fixation Device, Open Approach (ICD-10-PCS; principal; 2017-06-22 10:32)
DX: S72.142A Displaced intertrochanteric fracture of left femur, initial encounter for closed fracture (principal); I12.9 Hypertensive chronic kidney disease with stage 1 through stage 4 chronic kidney disease, or unspecified chronic kidney disease; N18.3 Chronic kidney disease, stage 3 (moderate); I25.10 Atherosclerotic heart disease of native coronary artery without angina pectoris; N40.0 Benign prostatic hyperplasia without lower urinary tract symptoms; D64.9 Anemia, unspecified; K27.7 Chronic peptic ulcer, site unspecified, without hemorrhage or perforation; K21.9 Gastro-esophageal reflux disease without esophagitis; E78.5 Hyperlipidemia, unspecified; M1A.9XX0 Chronic gout, unspecified, without tophus (tophi); J44.9 Chronic obstructive pulmonary disease, unspecified; W01.0XXA Fall on same level from slipping, tripping and stumbling without subsequent striking against object, initial encounter; Y92.003 Bedroom of unspecified non-institutional (private) residence as the place of occurrence of the external cause; Y99.8 Other external cause status; Z87.891 Personal history of nicotine dependence; Z88.0 Allergy status to penicillin; Z91.040 Latex allergy status; Z92.3 Personal history of irradiation; Z92.21 Personal history of antineoplastic chemotherapy; Z93.0 Tracheostomy status; Z95.5 Presence of coronary angioplasty implant and graft; Z79.01 Long term (current) use of anticoagulants; Z85.89 Personal history of malignant neoplasm of other organs and systems; Z96.653 Presence of artificial knee joint, bilateral
CPT/HCPCS: 36415; 71010; 76000; 81001; 82040; 82247; 82310; 82374; 82435; 82565; 82947; 84075; 84132; 84155; 84295; 84450; 84460; 84520; 85014; 85018; 85025; 85610; 85730; 86850; 86900; 86901; 93005; 97161; 97165; 99285; C1713; J0330; J1100; J1170; J1650; J2001; J2270; J2405; J2550; J2704; J3010; J3490; J7030; Q0163

== ENCOUNTER → 2017-06-22 | Outpatient (CLI) | payer MEDICARE, BC ==
[~2017-06-22] MED LIST: ACE325 PO; ALBUDR INH; ALLO-119 PO; ANU28T PR; ASPI-715 PO; ATEN-1 PO; AZIT500T47 PO; BIS10S PR; CALC-640 PO; CEF300 PO; CIPR-344 PO; COLC0.6C3 PO; DOXY25TA PO; DULO60CA51 PO; DUONEB INH; ERGO500037 PO; FAM20 PO; FEN145 PO; FENT-89 TD; FINA5TAB67 PO; FOLI-68 PO; HYDR-2946 PO; HYDR-385 PO; HYDR473S4 PO; LANO454C3 TP; LIS5 PO; LOPE-88 PO; LOR5/325 PO; LOR7.5/325 PO; MET10 PO; OME20PT PO; ONDA4TAB97 PO; OXYC-865 PO; PRE20 PO; SIME125T3 PO; SIMV-44 PO; SIMV-49 PO; TAMS0.4C76 PO; TER2 PO; TRAM-420 PO; ZINC30OI8 TP; [UNRECOGNIZED DRUG - CODE] JT; [UNRECOGNIZED DRUG - CODE] TD; [UNRECOGNIZED DRUG - CODE] TP
[2017-06-26 17:22] VITALS: BMI 16.9
== END ==
LOC: AMB 02:11
PROVIDERS: ATTEND Nurse Practitioner
DX: M25.552 Pain in left hip (principal); M21.752 Unequal limb length (acquired), left femur; W18.30XA Fall on same level, unspecified, initial encounter; Y92.000 Kitchen of unspecified non-institutional (private) residence as the place of occurrence of the external cause
CPT/HCPCS: A0425; A0427

== ENCOUNTER 2017-06-25 10:15 | Inpatient (IN) | payer MEDICARE, BC ==
[~2017-06-25] VITALS: Ht 198.1 cm; Wt 66.3 kg
[~2017-06-25 10:15] MED LIST changes: +SIMV-49 PO
[2017-06-25] MEDS ORDERED: ACETAMINOPHEN 325 MG TAB PO PRN (11:49)
[2017-06-25] MEDS ORDERED: ONDANSETRON 4 MG ODT TABDP SL PRN (11:55)
[2017-06-25] MEDS ORDERED: MAGNESIUM HYDROXIDE* 30ML UDCP PO PRN (11:55)
[2017-06-25 12:40] VITALS: BP 142/89
--- NOTE | 2017-06-25 12:52 | Consultant Pharmacy Review ---
Park Landscape [employer] Review Medication Review Do All Mecications have a Diag: Yes Disease-Drug Interactions History of Falls/Fractures: Opioids Other General Cautions Lexicomp Interaction Analysis A = No known interaction C = Monitor therapy X = Avoid combination B = No action needed D = Consider therapy modification Drugs in this analysis: Acetaminophen; Aspirin; Docusate Sodium (SYN); Flomax; Lopressor; Lovenox; Milk of Magnesia [OTC]; Percocet; Proscar; Protonix; Zocor; Zofran ODT; Zyloprim * Drug-Drug Interactions D Milk of Magnesia [OTC] (Antacids) Zyloprim (Allopurinol) C Aspirin (Agents with Antiplatelet Properties) Lovenox (Anticoagulants) Depends on International labeling C Aspirin (Salicylates) Lovenox (Anticoagulants) C Flomax (Alpha1-Blockers) Lopressor (Beta-Blockers) Depends on Dosage Form C Flomax (Hypotension-Associated Agents) Lopressor (Blood Pressure Lowering Agents) C Milk of Magnesia [OTC] (Antacids) Zocor (HMG-CoA Reductase Inhibitors ( Statins)) Depends on Duration C Protonix (Proton Pump Inhibitors) Zocor (HMG-CoA Reductase Inhibitors ( Statins)) B Acetaminophen Percocet (Opioid Analgesics) B Acetaminophen Zofran ODT (Antiemetics (5HT3 Antagonists)) B Aspirin (Salicylates) Milk of Magnesia [OTC] (Antacids) Depends on Duration B Percocet (Acetaminophen) Zofran ODT (Antiemetics (5HT3 Antagonists)) Acetaminophen Percocet Pneumococcal Vaccine HX Pneumo Vac ([id number]): Yes (2016) HX Pneumo Vac (Pneumovax): Yes (2017) Comments Regarding the Review Patient refuses influenza vaccination but is up-to-date on pneumococcal vaccinations. Please re-evaluate Percocet use in 2 weeks due to fall risk. ELI PLATA Jun 25, 2017 12:52
--- NOTE | 2017-06-25 16:04 | OT ECF NOTE ---
Type of Note: Initial Note Primary Medical Diagnosis: L Hip ORIF s/p hip fx sustained from a fall. WBAT Occupational Therapy Evaluation Date: 06/25/17 SUBJECTIVE: Prior Hospitalization: [facility] 06/22/17 thru 06/25/16 Prior Level of Function: Independent with all ADLs/IADLs. Pt's spouse is w/c dependent and pt and spouse work together to complete IADLs. Pt completes light IADLs and has private assistance for "deeper cleaning" Prior Living Status: Single level house, Spouse Community Services: Support adequate, No known needs Home Accessibility: Ramp All needs on one level Walk-in shower Tub/shower combination Equipment Owned: Front wheeled walker Toilet riser Tub/shower chair Wheelchair Chemical Etch Operator Family planning on obtaining a leg subway train operator Medical Complications/Past Medical History: Please refer to EMR Psychosocial Support: Supportive spouse and son that resides in [place] Pain Scale (0-10): No numerical rating provided at evaluation. Pt does report pain in L hip. OBJECTIVE: Strength: MMT: Right Left Shoulder Flexion WFL WFL Elbow Flexion WFL WFL Wrist Extension WFL WFL Laborer Aquatic Life WFL WFL (5= normal, 4= good, 3= fair, 2= poor, 1= trace) ROM: Both upper extremities, WFL Sensation: Intact, No concerns Functional Transfer: Assistive Device: Front wheeled walker, Gait belt Transfer Ability: CGA ADL: Upper body dressing: Assistive device: Upper body dressing ability: N/T Lower body dressing: Assistive device: Lower body dressing ability: Moderate assistance Toileting: Assistive device: Raised toilet seat Toileting ability: Minimum assistance Grooming/hygiene: Assistive device: Grooming ability: N/T Bathing: Assistive device: Bathing ability: N/T Standardized Assessment: Dominguez Index of Activities of Daily Livin/20 at initial evaluation (06/25). ASSESSMENT: José Miguel presents to [facility] with decreased (I) with ADLs/IADLs s/p L hip fx and subsequent ORIF. At [facility], he was (I) with all ADLs/IADLs. Currently, he requires CGA for ambulation and Min-Mod A for ADLs. He will greatly benefit from skilled OT services to improve activity tolerance and optimize independence for ADLs in order to prepare for discharge home. Problem List/Current Limitations: Pain Decreased activity tolerance Short Term Goals: 1) Pt will be Mod (I) toileting. 2) Pt will be Mod (I) UB/LB dressing. 3) Pt will be Independent grooming/hygiene. 4) Pt will be Mod (I) shower task. 5) Pt Dominguez Index of ADLs score will improve by 2 points. [facility] Goals: Return home with services. Patient Goals: "Get back to moving" Rehabilitation Prognosis: Good Barriers to Discharge: Pain PLAN: The patient will benefit from skilled occupational therapy services 5 times per week for 2 weeks including: Ther ex ADL training Safety training Ther act IADL training Transfer training Adaptive equip training Bed mobility Energy conservation Thank you for this referral. If you have any questions, concerns, or comments about this report or plan, please contact me at . Sandy Abebe MS, OTR/L Occupational Therapist JEFFREY
--- NOTE | 2017-06-25 17:15 | ECF H&P BLANK ---
ECF H&P UPDATE History of Present Illness Chief Complaint s/p Fall with L-hip pain History of Present Illness is a 72-year-old male with PMH of HTN, CKD-III, CAD s/p stent many years ago and asymptomatic, Nephrolithiasis, PUD, Dyslipidemia, Osteoarthritis, Gout and Throat Cancer s/p radiation of neck and Tracheostomy who had afall at home around 1:30am when he got up help his . He was brought in by EMS complaining of left hip pain. Patient has a previous right hip fracture status post surgery. Patient denies syncope. He stated he was trying to protect his right hip when he fell onto his left side. Patient denies head impact, neck pain, chest pain, shortness of breath. Patient denied recent illness. During the ER evaluation he found to have L-hip fracture on XR. He also has high BUN/Cr with GFR 43ml/min. He denies having COPD/Asthma and he quit smoking in 2008 when he developed throat cancer. Case was discussed with by ER-MD for possible repair today. I discussed the case with the ER-MD and admitted the patient for further evaluation, clearance for surgery. and management His BP has been on the high side and I will use Beta Daljit to control his BP. History Home Meds Active Scripts Folic Acid (FOLIC ACID) 1 Mg Tablet, 1 MG PO QDAY, #90 TAB 3 Refills Prov:JASON BARBOZA HEAT PLANT SPECIALIST-BC, ONC 06/09/17 Ergocalciferol (Vitamin D2) (VITAMIN D2) 50,000 Unit Capsule, 32052 UNIT PO weekly for 120 Days, #12 CAPSULE Prov:JASON BARBOZA HEAT PLANT SPECIALIST-BC, ONC 04/21/17 Reported Medications Simvastatin (SIMVASTATIN) 20 Mg Tablet, 20 MG PO HS, TAB 06/22/17 Allopurinol (ZYLOPRIM) 300 Mg Tablet, 300 MG PO QDAY, TAB 03/29/16 Hydrocodone Bit/Acetaminophen (HYDROCODON-ACETAMINOPHEN 5-325) 1 Each Tablet, 1- 2 EACH PO Q4-6H Y for PAIN, TAB 03/29/16 Calcium Citrate/Vitamin D3 (CALCITRATE + VIT D CAPLET) 1 Each Tablet, 1 EACH PO QDAY 09/13/15 Finasteride (FINASTERIDE) 5 Mg Tablet, 5 MG PO QDAY 04/27/14 Tamsulosin Hcl (Flomax) 0.4 Mg Cap.sr.24h, 0.4 MG PO DAILY 03/14/12 Discontinued Reported Medications Hydrocodone Bit/Acetaminophen (HYDROCODON-ACETAMINOPHEN 5-325) 1 Each Tablet, 1 EACH PO Q4H, TAB 09/13/15 Simvastatin (Zocor) 40 Mg Tablet, 20 MG PO QHS, 0 Refills 03/02/09 Discontinued Scripts Oxycodone Hcl/Acetaminophen (PERCOCET 5-325 MG TABLET) 1 Each Tablet, 1 EACH PO Q4H Y for PAIN, #20 TAB 0 Refills Prov:DIONTE LOPEZ MD 03/29/16 Allergies: Coded Allergies: Penicillins (Verified Allergy, Mild, CAN'T REMEMBER, 06/22/17) latex (Verified Allergy, Mild, RASH, 06/22/17) Patient History: FH: cancer AUNT FH: leukemia GRANDFATHER FH: lung cancer FATHER, Onset:68 Hx Smoking: Yes Smoking Status: Former Smoker Exposure to Second Hand Smoke?: No When Quit Tobacco?: 2008 Caffeine Intake: Soda Caffeine/Cups Per Day: rarely Hx Alcohol Use: Yes Hx Substance Use Disorder: No Social Drug Use: Occasional Social Drugs: Marijuana, LSD Review of Systems Constitutional: No Fever, No Weight Loss, No Weight Gain, No Chills Neurological: No Syncope, No Confusion, No Weakness, No Dizziness Eyes: No Vision Change ENT: Hearing Loss, No Sinus Congestion, No Sore Throat Cardiovascular: No Chest Pain, No Palpitations Respiratory: No Shortness of Breath, No Cough, No Wheezing Gastrointestinal: No Nausea, No Vomiting, No Diarrhea, No Dysphagia, No Constipation, No Abdominal Pain Genitourinary: No Dysuria, No Hematuria Musculoskeletal: Pain, Impaired Mobility, No Sprain, No Strain Psychiatric: No Depression, No Anxiety Exam Vital Signs Vital Signs Date Time Temp Pulse Resp B/P (MAP) Pulse Ox O2 Delivery O2 Flow Rate FiO2 06/22/17 05:15 95 06/22/17 05:04 98.2 90 20 169/97 (121) Room Air 96.0 General Appearance: Alert, Awake, No Acute Distress, Afebrile Neuro: No Gross deficits Eyes: PERRLA ENT: Normal, Other (chronic MS neck changes) Neck: No Masses Cardiovascular: Normal Rhythm & Peripheral Pulses Respiratory: No Respiratory Distress GI: Abd Soft and Non-Tender Extremities: Other (Tender L-LE on ROM) Integumentary: Skin Intact without Lesion / Mass Psych: Alert & Oriented X3, Appropriate Mood & Affect Medical Decision Making Data Points Result Diagram: 06/22/1723206/22/17232 EKG / Imaging Monitor Interpretation: Normal Sinus Rhythm Imaging reviewed Pre-Admit Course ED Medications reviewed Medical Record Review: Yes Assessment and Plan Problems: (1) Hypertension Status: Acute Assessment & Plan: His BP has been on the high side and that could be due to his hip pain. He is not currently on any BP medication. I will start him on Beta Daljit to control his BP and also protect his heart. Metoprolol 25mg po bid. I will keep him on NPO for now and then 2gm Na diet Heart healthy diet after the surgery (2) Closed left hip fracture Status: Acute Assessment & Plan: L-Hip Fracture after fall at home. Dr. Odom will see him today and possible hip repair today. Management as per Orthopedics (3) Coronary artery disease Status: Acute Assessment & Plan: His CAD status is pretty stable and no recent CP but occasionally gets SOB. His EKG is WNL. He will receive Beta Daljit for his BP. He is adequately cleared for surgical procedure. Central Venous Access Medical Necessity for Access: IV Access, Medication Administration Time Spent on Plan of Care: < 30 min Copies to: WILBER ODOM MD; ELISHA DOHERTY MD Venous Thromboembolism VTE Risk Physician Assess for VTE Risk: Yes Patient's VTE Risk: Low VTE Diagnostic Test 2 Days Prior to Admit: No Antithrombotics Is Pt On Any Antithrombotics?: No Exam Sepsis Risk: No Definite Risk Problem Qualifiers (1) Hypertension: Hypertension type: essential hypertension Qualified Codes: I10 - Essential ( primary) hypertension (2) Coronary artery disease: Coronary Disease-Associated Artery/Lesion type: unspecified vessel or lesion type [place] vs. transplanted heart: unspecified whether [place] or transplanted heart Associated angina: without angina Qualified Codes: I25.10 - Atherosclerotic heart disease of [place] coronary artery without angina pectoris ALEX MILLER MD Jun 22, 2017 05:34 <Electronically signed by ALEX MILLER MD> D/ 0 9 9 GUNJAN CC: WILBER ODOM MD; ELISHA DOHERTY MD Mr. Lara will be admitted to [facility] for ongoing rehabilitative therapy. Central Line Progress Note Medical Necessity for Central: IV Access, Medication Administration LEONILA LITTLE MD Jun 25, 2017 17:15
[2017-06-25] MEDS: METOPROLOL TART 50 MG TAB PO SCH (20:50)
[2017-06-25] MEDS: SIMVASTATIN 20 MG TAB PO SCH (20:50)
[2017-06-25] MEDS: DOCUSATE SODIUM 100 MG CAP PO SCH (20:50)
[2017-06-26 08:05] VITALS: BP 192/95
[2017-06-26] MEDS ORDERED: BISACODYL 10 MG SUPP PR PRN (08:05)
[2017-06-26] MEDS: traMADol 50 MG TAB PO PRN ×2 (08:52→20:24)
[2017-06-26] MEDS: ONDANSETRON 4 MG ODT TABDP SL PRN ×2 (08:52→13:57)
[2017-06-26] MEDS: TAMSULOSIN HCL 0.4 MG CAP PO SCH (09:44)
[2017-06-26] MEDS: METOPROLOL TART 50 MG TAB PO SCH ×2 (09:44→20:21)
[2017-06-26] MEDS: DOCUSATE SODIUM 100 MG CAP PO SCH ×2 (09:44→20:22)
[2017-06-26] MEDS: FINASTERIDE 5 MG TAB PO SCH (09:44)
[2017-06-26] MEDS: ALLOPURINOL 300 MG TAB PO SCH (09:44)
[2017-06-26] MEDS: ASPIRIN 81 MG ENTERIC COATED PO SCH (09:44)
[2017-06-26] MEDS: POLYETHYLENE GLYCOL 17 GM PKT PO SCH (09:45)
[2017-06-26] MEDS: ENOXAPARIN 40 MG/0.4ML SYR SC SCH (09:45)
[2017-06-26] MEDS: PANTOPRAZOLE SOD 40 MG TABEC PO SCH (09:47)
[2017-06-26 16:35] VITALS: BP 144/76
[2017-06-26 17:22] VITALS: Ht 198.1 cm; Wt 66.3 kg
[2017-06-26] MEDS ORDERED: diphenhydrAMINE 25 MG CAP PO PRN (18:15)
[2017-06-26] MEDS: SIMVASTATIN 20 MG TAB PO SCH (20:22)
[2017-06-27 07:45] VITALS: BP 175/97
[2017-06-27] MEDS: TAMSULOSIN HCL 0.4 MG CAP PO SCH (09:09)
[2017-06-27] MEDS: METOPROLOL TART 50 MG TAB PO SCH ×2 (09:09→20:18)
[2017-06-27] MEDS: POLYETHYLENE GLYCOL 17 GM PKT PO SCH (09:09)
[2017-06-27] MEDS: PANTOPRAZOLE SOD 40 MG TABEC PO SCH (09:09)
[2017-06-27] MEDS: DOCUSATE SODIUM 100 MG CAP PO SCH ×2 (09:09→20:18)
[2017-06-27] MEDS: FINASTERIDE 5 MG TAB PO SCH (09:09)
[2017-06-27] MEDS: ENOXAPARIN 40 MG/0.4ML SYR SC SCH (09:10)
[2017-06-27] MEDS: traMADol 50 MG TAB PO PRN ×2 (09:10→20:18)
[2017-06-27] MEDS: ONDANSETRON 4 MG ODT TABDP SL PRN (09:17)
[2017-06-27] MEDS: ALLOPURINOL 300 MG TAB PO SCH (09:23)
[2017-06-27] MEDS: ASPIRIN 81 MG ENTERIC COATED PO SCH (09:23)
--- NOTE | 2017-06-27 12:44 | Medical Nutrition Therapy ---
Nutrition Anthropometrics Height (Inches): 78.00 Height (Calculated Centimeters: 198.315780 Weight (Pounds): 146 Weight (Calculated Kilograms): 66.253 BMI Calculated: 16.87 Josué Nutrition Score: Probably Inadequate Josué Nutrition Risk Score: 16 Dietary Referral Nutrition Risk Factors: Diff. Swallowing Nutrition Risk Comment: Removed part of stomach Physical Findings Physical Appearance: Underweight BMI<19 (BMI 16.9) Skin Appearance Skin Appearance: Edema Edema Location Modifier: Edema Location: Type of Edema: Degree of Edema: Gastrointestinal Symptoms GI Symtoms: Nausea, Appetite Changes, Weight Changes Tube Present: Bowel Sounds: Recent Bowel Pattern: Constipated Stool Characteristics: Nutrition/Food History Difficulty Swallowing (hx of head/neck Ca) Nutritional Diagnosis Nutritional Risk Acuity 1: %IBW < 74% Nutritional Risk Acuity 2: Swallowing Problem Past Medical History: HTN, CKD-III, CAD , Nephrolithiasis, PUD, Dyslipidemia, Osteoarthritis, Gout and Throat Cancer HX of [place], Hyperlipidemia, COPD, ulcer disease, Head and neck cancer, vagotomy, jejunostomy, ACL repair, elbow surgery Nutritional Acuity: 2-Moderate Diet Type: Diet as Tolerated RALPH/REG Nutrition Intervention: Cont diet as ordered, Encourage intake, HS snack, Between meal supplement Food Likes: white sugar w/ cow brown sug w/ oat Additional Diet Restrictions: OFFER NUTR SUPPLMENT Diet Comment To RSA: PROVIDE SOFT, MOIST, [id number] FOODS Nutrition Monitoring & Eval Nutrition Goals: Eat 75-100% Meal Nutrition Follow-Up: Fair Intake, Poor Intake RD Patient Assessment Time: [address] Assessment Type: RD Assessment Patient Nutrition Acuity: 2-Moderate Follow Up Date: Jul 01, 2017 Nutritional Comment: 06/26/17 Pt admitted post hip fx. Pt is significantly underwt at 66% IBWR. Pt has hx of head/neck Ca. Wt stable from past admit in January when wt was 145#. Pt reporting swallowing difficulties. Will f/u with pt on foods that pt can swallow easily. Pt is on RALPH. Alb 3.9. Will offer nutr supplement to increase kcal and protein intake. Will cont to monitor and encourage intake. /5 Intake range 10-100% and averaging 42% of small portions . Pt states has swallowing problems but was not interested in expanding on it at this time. Pt states he has constipation. Recommended trying prune juice with meals. Pt declined. Will provide soft,moist, nlps-na-dbambai food and encourage nutr supplement. TAMI FERNÁNDEZ Jun 27, 2017 12:44
[2017-06-27 15:50] VITALS: BP 160/89
--- NOTE | 2017-06-27 17:17 | PT ECF NOTE ---
Type of Note: Initial Note Primary Medical Diagnosis: L Hip ORIF s/p hip fx sustained from a fall. WBAT; no posterior precautions. Physical Therapy Evaluation Date: 06/25/17 SUBJECTIVE: [facility]17 [facility] 06/25/16 Prior Level of Function: Independent with all ADLs/IADLs. Pt's spouse is w/c dependent and pt and spouse work together to complete IADLs. Pt completes light IADLs and has private assistance for "deeper cleaning" Prior Living Status: Single level house, Spouse Community Services: Support adequate, No known needs Home Accessibility: Ramp, All needs on one level, Walk-in shower, Tub/shower combination Equipment Owned:Front wheeled walker, Toilet riser, Tub/shower chair, Wheelchair, Global Coordinator , Family planning on obtaining a leg director of partner marketing Medical Complications/Past Medical History: Please refer to EMR Psychosocial Support: Supportive spouse and son that resides in [place] Pain Scale (0-10): No numerical rating provided at evaluation. Pt does report some left hip discomfort. OBJECTIVE: Strength: L) LE 2+/5 overall with pt unable to perform straight-leg raise in supine against gravity. R) LE is 4+/5 overall. ROM: (please note any abnormalities) Somewhat limited on L) LE due to pain, R ) LE WNL. Sensation: (please note any abnormalities) Pt denies any paresthesias. Other Neuro findings: none reported Bed Mobility: Min assist for L) LE support for supine to/from sit; or use of leg director of partner marketing if available Assistive device: Bed rail Transfers: Minimum assistance, 1-person assist, CGA Assistive Device: Front wheeled walker Gait: CGA Assistive device: Front wheeled walker Stairs: Not yet addressed Assistive device: Timed Up and Go (>12 seconds indicated increased risk for falls): Not yet tested, due to pt's level of fatigue and Min/CGA required for trnsfrs. 10 meter walk test (0.6m/second cannot function independently): n/a Other Objective Measures: n/a ASSESSMENT: Pt notes that he is the primary caregiver for his who is in a W/C. Pt will need to be fully indep prior to return home. Pt currently requires use of leg director of partner marketing or Min assist for supine to/from sit transfers, as well as Min/CGA for sit to/from stand transfers. Pt would benefit from regular PT to address safety with functional mobility, and improved balance and strength in order to transfer home successfully. Problem List/Current Limitations: Pain, Decreased activity suze, Decreased strength, Decreased ROM, Decreased balance, Generalized weakness, Nausea Short Term Goals: 1. Pt to be indep with bed mobility and supine to/from sit transfers 2. Pt to be indep with sit to/from stand transfers with least restrictive device. 3. Pt to be indep with ambulation x 150' with least restrictive device and improved wilfredo, as demonstrated by TUG test. Half-Way Goals: Return home with adequate indep and assistance for IADL's as needed. Patient Goals: Return home Rehabilitation Prognosis: Good Barriers for Discharge: Pt will need to be fully indep to feel safe transferring home, as his is unable to assist with mobility. PLAN: The patient will benefit from skilled physical therapy services 5 times per week for 2 weeks including: Therapeutic Activities Transfer Training, Gait Training, Stair Training, ADL's, Safety Training, Pt/ Caregiver Training, Bed Mobility Thank you for this referral. If you have any questions, concerns, or comments about this report or plan, please contact me at . H. Zuly Braga, PT, MPT MTDD
[2017-06-27] MEDS: SIMVASTATIN 20 MG TAB PO SCH (20:18)
[2017-06-28] MEDS: traMADol 50 MG TAB PO PRN ×4 (02:15→20:28)
[2017-06-28 07:30] VITALS: BP 198/96
[2017-06-28] MEDS: POLYETHYLENE GLYCOL 17 GM PKT PO SCH (09:02)
[2017-06-28] MEDS: ONDANSETRON 4 MG ODT TABDP SL PRN (09:02)
[2017-06-28] MEDS: ENOXAPARIN 40 MG/0.4ML SYR SC SCH (09:03)
[2017-06-28] MEDS: FINASTERIDE 5 MG TAB PO SCH (09:03)
[2017-06-28] MEDS: ALLOPURINOL 300 MG TAB PO SCH (09:03)
[2017-06-28] MEDS: TAMSULOSIN HCL 0.4 MG CAP PO SCH (09:03)
[2017-06-28] MEDS: METOPROLOL TART 50 MG TAB PO SCH ×2 (09:03→20:28)
[2017-06-28] MEDS: PANTOPRAZOLE SOD 40 MG TABEC PO SCH (09:04)
[2017-06-28] MEDS: ASPIRIN 81 MG ENTERIC COATED PO SCH (09:04)
[2017-06-28] MEDS: DOCUSATE SODIUM 100 MG CAP PO SCH ×2 (09:04→20:28)
[2017-06-28] MEDS ORDERED: PHENYLEPHRINE 0.5% 15 ML BTL PRN (14:10)
[2017-06-28 17:00] VITALS: BP 161/79
[2017-06-28] MEDS: SIMVASTATIN 20 MG TAB PO SCH (20:28)
[2017-06-29 07:30] VITALS: BP 177/92
[2017-06-29] MEDS: traMADol 50 MG TAB PO PRN ×2 (07:51→15:09)
--- NOTE | 2017-06-29 08:42 | Miscellaneous Provider Note ---
Miscellaneous Provider Note Note Mr. Lara reports a history of some morning cough with sputum production, which seems to be a little worse the past few days. No fever. No hypoxia. Exam reveals some diminished breath sounds, but otherwise fairly clear. Will have him use his incentive spirometer and add a Duo-Neb treatment each AM and guaifenesin to help with cough/secretion clearance. LEONILA LITTLE MD Jun 29, 2017 08:42
[2017-06-29] MEDS: PANTOPRAZOLE SOD 40 MG TABEC PO SCH (08:58)
[2017-06-29] MEDS: TAMSULOSIN HCL 0.4 MG CAP PO SCH (08:58)
[2017-06-29] MEDS: guaiFENesin 600 MG TABCR PO SCH ×2 (08:58→20:24)
[2017-06-29] MEDS: FINASTERIDE 5 MG TAB PO SCH (08:58)
[2017-06-29] MEDS: ALLOPURINOL 300 MG TAB PO SCH (08:58)
[2017-06-29] MEDS: METOPROLOL TART 50 MG TAB PO SCH ×2 (08:58→20:24)
[2017-06-29] MEDS: DOCUSATE SODIUM 100 MG CAP PO SCH ×2 (08:58→20:24)
[2017-06-29] MEDS: ASPIRIN 81 MG ENTERIC COATED PO SCH (08:58)
[2017-06-29] MEDS: ENOXAPARIN 40 MG/0.4ML SYR SC SCH (08:59)
[2017-06-29] MEDS: POLYETHYLENE GLYCOL 17 GM PKT PO SCH (08:59)
[2017-06-29] MEDS: ALBUTEROL/IPRATROPIUM 3 ML NEB NEB SCH (09:06)
[2017-06-29 17:00] VITALS: BP 176/86
[2017-06-29] MEDS: SIMVASTATIN 20 MG TAB PO SCH (20:24)
[2017-06-30] MEDS: traMADol 50 MG TAB PO PRN ×4 (02:34→21:31)
[2017-06-30 07:30] VITALS: BP 176/90
[2017-06-30] MEDS: ENOXAPARIN 40 MG/0.4ML SYR SC SCH (08:51)
[2017-06-30] MEDS: ALLOPURINOL 300 MG TAB PO SCH (08:51)
[2017-06-30] MEDS: guaiFENesin 600 MG TABCR PO SCH ×2 (08:51→21:31)
[2017-06-30] MEDS: POLYETHYLENE GLYCOL 17 GM PKT PO SCH (08:52)
[2017-06-30] MEDS: METOPROLOL TART 50 MG TAB PO SCH ×2 (08:52→21:31)
[2017-06-30] MEDS: PANTOPRAZOLE SOD 40 MG TABEC PO SCH (08:52)
[2017-06-30] MEDS: DOCUSATE SODIUM 100 MG CAP PO SCH ×2 (08:53→21:00)
[2017-06-30] MEDS: FINASTERIDE 5 MG TAB PO SCH (08:53)
[2017-06-30] MEDS: ASPIRIN 81 MG ENTERIC COATED PO SCH (08:53)
[2017-06-30] MEDS: TAMSULOSIN HCL 0.4 MG CAP PO SCH (08:53)
[2017-06-30] MEDS: ALBUTEROL/IPRATROPIUM 3 ML NEB NEB SCH (09:00)
--- NOTE | 2017-06-30 09:47 | Medical Nutrition Therapy ---
Nutrition Anthropometrics Height (Inches): 78.00 Height (Calculated Centimeters: 198.639531 Weight (Pounds): 146 Weight (Calculated Kilograms): 66.253 BMI Calculated: 16.87 Josué Nutrition Score: Probably Inadequate Josué Nutrition Risk Score: 16 Dietary Referral Nutrition Risk Factors: Diff. Swallowing Nutrition Risk Comment: Removed part of stomach Physical Findings Physical Appearance: Underweight BMI<19 (BMI 16.9) Skin Appearance Skin Appearance: Edema Edema Location Modifier: Edema Location: Type of Edema: Degree of Edema: Gastrointestinal Symptoms GI Symtoms: Nausea, Appetite Changes, Weight Changes Tube Present: Bowel Sounds: Recent Bowel Pattern: Constipated Stool Characteristics: Nutritional Diagnosis Nutritional Risk Acuity 1: %IBW < 74% Nutritional Risk Acuity 2: Swallowing Problem Past Medical History: HTN, CKD-III, CAD , Nephrolithiasis, PUD, Dyslipidemia, Osteoarthritis, Gout and Throat Cancer HX of [place], Hyperlipidemia, COPD, ulcer disease, Head and neck cancer, vagotomy, jejunostomy, ACL repair, elbow surgery Nutritional Acuity: 2-Moderate Diet Type: Diet as Tolerated RALPH/REG Nutrition Intervention: Cont diet as ordered, Encourage intake, HS snack, Between meal supplement Food Likes: white sugar w/ cow brown sug w/ oat Additional Diet Restrictions: OFFER NUTR SUPPLMENT Diet Comment To RSA: PROVIDE SOFT, MOIST, [id number] FOODS Nutrition Monitoring & Eval Nutrition Goals: Eat 75-100% Meal RD Patient Assessment Time: [address] Assessment Type: RD Re-Assessment Patient Nutrition Acuity: 2-Moderate Follow Up Date: Jul 08, 2017 Nutritional Comment: 06/26/17 Pt admitted post hip fx. Pt is significantly underwt at 66% IBWR. Pt has hx of head/neck Ca. Wt stable from past admit in January when wt was 145#. Pt reporting swallowing difficulties. Will f/u with pt on foods that pt can swallow easily. Pt is on RALPH. Alb 3.9. Will offer nutr supplement to increase kcal and protein intake. Will cont to monitor and encourage intake. 1/5 Intake range 10-100% and averaging 42% of small portions . Pt states has swallowing problems but was not interested in expanding on it at this time. Pt states he has constipation. Recommended trying prune juice with meals. Pt declined. Will provide soft,moist, iocv-lj-ljflxdf food and encourage nutr supplement. 1/8 Intake ranging from 25-50% over the last 2 days. No new labs or weights available. Will continue to encourage intake of soft, moist, qtqm-mf-saefnbr food and encourage nutr supplement. Will monitor intake, labs, etc. RYANNE CLINTON Jun 30, 2017 08:33
[2017-06-30 16:45] VITALS: BP 159/80
[2017-06-30] MEDS: SIMVASTATIN 20 MG TAB PO SCH (21:31)
[2017-07-01 07:40] VITALS: BP 159/80
[2017-07-01] MEDS: traMADol 50 MG TAB PO PRN ×3 (07:46→22:36)
[2017-07-01] MEDS: POLYETHYLENE GLYCOL 17 GM PKT PO SCH (08:23)
[2017-07-01] MEDS: DOCUSATE SODIUM 100 MG CAP PO SCH ×2 (08:23→20:54)
[2017-07-01] MEDS: METOPROLOL TART 50 MG TAB PO SCH ×2 (08:24→20:53)
[2017-07-01] MEDS: ALLOPURINOL 300 MG TAB PO SCH (08:24)
[2017-07-01] MEDS: ASPIRIN 81 MG ENTERIC COATED PO SCH (08:24)
[2017-07-01] MEDS: ENOXAPARIN 40 MG/0.4ML SYR SC SCH (08:24)
[2017-07-01] MEDS: FINASTERIDE 5 MG TAB PO SCH (08:24)
[2017-07-01] MEDS: TAMSULOSIN HCL 0.4 MG CAP PO SCH (08:24)
[2017-07-01] MEDS: guaiFENesin 600 MG TABCR PO SCH ×2 (08:24→20:53)
[2017-07-01] MEDS: PANTOPRAZOLE SOD 40 MG TABEC PO SCH (08:24)
[2017-07-01] MEDS: ALBUTEROL/IPRATROPIUM 3 ML NEB NEB SCH (09:33)
[2017-07-01 20:45] VITALS: BP 152/76
[2017-07-01] MEDS: SIMVASTATIN 20 MG TAB PO SCH (20:53)
[2017-07-02] MEDS: FINASTERIDE 5 MG TAB PO SCH (08:26)
[2017-07-02] MEDS: traMADol 50 MG TAB PO PRN ×2 (08:26→17:52)
[2017-07-02] MEDS: POLYETHYLENE GLYCOL 17 GM PKT PO SCH ×2 (08:27→08:31)
[2017-07-02] MEDS: TAMSULOSIN HCL 0.4 MG CAP PO SCH (08:27)
[2017-07-02] MEDS: METOPROLOL TART 50 MG TAB PO SCH ×2 (08:27→20:54)
[2017-07-02] MEDS: ASPIRIN 81 MG ENTERIC COATED PO SCH (08:27)
[2017-07-02] MEDS: ALLOPURINOL 300 MG TAB PO SCH (08:27)
[2017-07-02] MEDS: guaiFENesin 600 MG TABCR PO SCH ×2 (08:27→20:53)
[2017-07-02] MEDS: PANTOPRAZOLE SOD 40 MG TABEC PO SCH (08:27)
[2017-07-02] MEDS: DOCUSATE SODIUM 100 MG CAP PO SCH ×3 (08:27→20:54)
[2017-07-02] MEDS: ENOXAPARIN 40 MG/0.4ML SYR SC SCH (08:27)
[2017-07-02 09:26] VITALS: BP 186/90
[2017-07-02] MEDS: ALBUTEROL/IPRATROPIUM 3 ML NEB NEB SCH (09:31)
--- NOTE | 2017-07-02 14:07 | Hospitalist Progress Note ---
Subjective Progress Notes Subjective No new complaints. Doing well overall. Physical Exam Vital Signs Date Time Temp Pulse Resp B/P (MAP) Pulse Ox O2 Delivery O2 Flow Rate FiO2 07/02/17 09:42 91 Room Air 07/02/17 09:35 72 16 07/02/17 09:26 97.2 186/90 (122) 06/30/17 21:30 1.5 Intake and Output 07/03/17 07:00 Intake Total 120 ml Output Total 50 ml Balance 70 ml Intake Oral 120 ml Output Urine Total 50 ml # Voids 2 General Appearance: Alert, Awake, No Acute Distress Neuro: No Gross deficits Cardiovascular: Regular Rate and Rhythm Respiratory: Clear to Auscultation GI: Soft and Non-Tender Extremities: Perfused Psych: Appropriate Mood & Affect Assessment and Plan Problems: (1) Closed left hip fracture Status: Acute Assessment & Plan: He is on Lovenox prophylaxis. He is also on a baby ASA for his CAD. Will increase to a full ASA at discharge to complete his 30 days of DVT prophylaxis and then have him go back to a baby ASA daily. (2) Hypertension Assessment & Plan: He had elevated blood pressures on admission, but was not on chronic treatment at home. He was started on metoprolol and his pressures improved, but were still elevated. His metoprolol was increased to 50mg bid. His pressures remains high but his HR is fine. Will increase to 100mg bid. (3) Coronary artery disease Assessment & Plan: He does have a history of coronary artery disease with stent placement, but is not on chronic antiplatelet therapy. Metoprolol started for HTN. Will start ASA 81mg a day. He likely would benefit from a statin, but will defer to his PCP. (4) CKD (chronic kidney disease) Status: Chronic Assessment & Plan: Creatinine is 1.2 today. This appears to be near his baseline. Fluids stopped. Will need to repeat a BMP to check creatinine on ASA. Lab ordered for am. (5) Postoperative anemia Status: Acute Assessment & Plan: Hemoglobin dropped from admission but stable at 9.6. Will repeat tomorrow. (6) Abnormal chest xray Status: Chronic Assessment & Plan: He has slight asymmetric lung marking changes in the RUL that was recommended to have a follow up in 3-6 months. Central Venous Access Medical Necessity for Access: IV Access, Medication Administration Time Spent on Plan of Care: < 30 min Problem Qualifiers (1) Closed left hip fracture: Encounter type: subsequent encounter (2) Coronary artery disease: Coronary Disease-Associated Artery/Lesion type: bypass graft, other ALFRED LITTLE MD Jul 02, 2017 14:07
--- NOTE | 2017-07-02 14:59 | Hospitalist Depart ---
Discharge Summary Reason for Hosp/Final Diag: (1) Closed left hip fracture Status: Acute Hospital Course & Plan: He was on Lovenox prophylaxis after surgery for DVT prophylaxis. He was also restarted on a baby ASA for his CAD. His aspirin had been stopped in the past due to history of bleeding duodenal ulcer. He was on Protonix with his aspirin and had no problems while on ECF. This was increased to a full ASA at discharge to complete 30 days of DVT prophylaxis and then he was instructed to go back to a baby ASA daily. His will complete 30 days of DVT prophylaxis on July 23. (2) Hypertension Hospital Course & Plan: He had elevated blood pressures on admission, but was not on chronic treatment at home. He was started on metoprolol and his pressures improved, but were still elevated. His metoprolol was increased to 50mg bid. His pressures remained high. His pulse was normal. Metoprolol was increased to 100mg bid. (3) Coronary artery disease Hospital Course & Plan: The patient has a history of coronary artery disease with stent placement, but was not on chronic antiplatelet therapy on admission ( see above). Metoprolol was tarted for HTN. He was also started on an ASA 81mg a day. His simvastatin was continued during his stay. (4) CKD (chronic kidney disease) Status: Chronic Hospital Course & Plan: The patient's creatinine was elevated at 1.6 on admission but improved to 1.2 with fluids. This appeared to be near his baseline. (5) Postoperative anemia Status: Acute Hospital Course & Plan: Hemoglobin dropped from admission after surgical repair of his hip fracture, but stabilized. (6) Abnormal chest xray Status: Chronic Hospital Course & Plan: He was noted to have slight asymmetric lung marking changes in the RUL It was recommended that he have a follow CXR up in 3-6 months. Departure Weight (Pounds): 146 Weight (Ounces): 1.0 Condition: Improved Discharge: Home, Home Health PT/OT Follow Up For: PT For Strengthening Time Spent: < 30 min Discharge Instructions Home Meds Active Scripts Pantoprazole Sodium (PANTOPRAZOLE SODIUM) 40 Mg Tablet., 40 MG PO QDAY for 30 Days, #30 TAB 1 Refill Prov:LEONILA LITTLE MD 07/02/17 Tramadol Hcl (TRAMADOL HCL) 50 Mg Tablet, 50-100 MG PO Q6H Y for PAIN, #30 TAB Prov:ALFRED LITTLE MD 07/02/17 Docusate Sodium (DOCUSATE SODIUM) 100 Mg Capsule, 100 MG PO BID, #60 CAPSULE Prov:ALFRED LITTLE MD 07/02/17 Aspirin (ASPIRIN EC) 325 Mg Tablet.dr, 325 MG PO QDAY, #19 TAB Stop aspirin 325mg daily after July 23 and then take a baby ASA daily thereafter. Prov:ALFRED LITTLE MD 07/02/17 Folic Acid (FOLIC ACID) 1 Mg Tablet, 1 MG PO QDAY, #90 TAB 3 Refills Prov:JASON BARBOZA ARTIFICIAL INSEMINATION TECHNICIAN-BC, ONC 06/09/17 Ergocalciferol (Vitamin D2) (VITAMIN D2) 50,000 Unit Capsule, 14017 UNIT PO weekly for 120 Days, #12 CAPSULE Prov:JASON BARBOZA ARTIFICIAL INSEMINATION TECHNICIAN-BC, ONC 04/21/17 Reported Medications Metoprolol Tartrate (METOPROLOL TARTRATE) 25 Mg Tablet, 100 MG PO BID, TAB 07/04/17 Simvastatin (SIMVASTATIN) 20 Mg Tablet, 20 MG PO HS, TAB 06/22/17 Allopurinol (ZYLOPRIM) 300 Mg Tablet, 300 MG PO QDAY, TAB 03/29/16 Finasteride (FINASTERIDE) 5 Mg Tablet, 5 MG PO QDAY 04/27/14 Tamsulosin Hcl (Flomax) 0.4 Mg Cap.sr.24h, 0.4 MG PO DAILY 03/14/12 Discontinued Reported Medications Hydrocodone Bit/Acetaminophen (HYDROCODON-ACETAMINOPHEN 5-325) 1 Each Tablet, 1- 2 EACH PO Q4-6H Y for PAIN, TAB 03/29/16 Follow up Referrals: Family Practice - In One Month @ [facility] with Jorge Luis Sierra Do Orthopedics - In Three Weeks @ [facility] with Jeffry Baer Md Diet: Regular Activity: As Tolerated Special Instructions: The patient is to take an enteric coated regular aspirin (325mg) through July 23 for DVT prophylaxis. He can then decrease back to a baby aspirin daily starting July 24. Copies to: JORGE LUIS SIERRA DO Venous Thromboembolism VTE Risk Physician Assess for VTE Risk: Yes Patient's VTE Risk: Low VTE Diagnostic Test 2 Days Prior to Admit: No Antithrombotics Is Pt On Any Antithrombotics?: Yes [id number] Certification Face to Face Home Health Certification Institutional Provider conducted the [id number] encounter. Electronic Undersigning Physician Certifies Home Health. I certify that the patient has been under my care and that I had a [id number] encounter that meets the physician smrm-ml-oloy encounter requirements with this patient. This patient is home-bound due to safety issues and continues to require assistance with ADL's. I certify that based on my findings, that Nursing, Aides and the following Home Health services are medically necessary: PT Medical Necessity: Rehab Date Face to Face Conducted: Jul 02, 2017 Problem Qualifiers (1) Closed left hip fracture: Encounter type: subsequent encounter (2) Coronary artery disease: Coronary Disease-Associated Artery/Lesion type: bypass graft, other ALFRED LITTLE MD Jul 02, 2017 14:59
[2017-07-02] MEDS ORDERED: ASPI-764 PO (15:05)
[2017-07-02] MEDS ORDERED: DOCU-202 PO (15:06)
[2017-07-02] MEDS ORDERED: TRAM-420 PO (15:06)
[2017-07-02 16:05] VITALS: BP 179/86
[2017-07-02] MEDS ORDERED: PANT40TA65 PO (16:51)
[2017-07-02] MEDS: SIMVASTATIN 20 MG TAB PO SCH (20:54)
[2017-07-03] MEDS: traMADol 50 MG TAB PO PRN ×2 (07:35→17:25)
[2017-07-03 08:05] LABS: PLATELET COUNT, AUTOMATED 363 K/uL (150-450)
[2017-07-03 08:15] VITALS: BP 172/88
[2017-07-03] MEDS: FINASTERIDE 5 MG TAB PO SCH (08:59)
[2017-07-03] MEDS: guaiFENesin 600 MG TABCR PO SCH ×2 (08:59→20:49)
[2017-07-03] MEDS: ENOXAPARIN 40 MG/0.4ML SYR SC SCH (08:59)
[2017-07-03] MEDS: PANTOPRAZOLE SOD 40 MG TABEC PO SCH (09:00)
[2017-07-03] MEDS: POLYETHYLENE GLYCOL 17 GM PKT PO SCH (09:00)
[2017-07-03] MEDS: TAMSULOSIN HCL 0.4 MG CAP PO SCH (09:00)
[2017-07-03] MEDS: ALLOPURINOL 300 MG TAB PO SCH (09:00)
[2017-07-03] MEDS: DOCUSATE SODIUM 100 MG CAP PO SCH ×2 (09:00→20:54)
[2017-07-03] MEDS: ASPIRIN 81 MG ENTERIC COATED PO SCH (09:00)
[2017-07-03] MEDS: METOPROLOL TART 50 MG TAB PO SCH ×2 (09:02→20:54)
[2017-07-03] MEDS: ALBUTEROL/IPRATROPIUM 3 ML NEB NEB SCH (09:25)
[2017-07-03 16:00] VITALS: BP 162/80
--- NOTE | 2017-07-03 16:13 | OT ECF NOTE ---
Type of Note: Discharge Note Primary Medical Diagnosis: L Hip ORIF s/p hip fx sustained from a fall. WBAT Occupational Therapy Evaluation Date: 06/25/17 SUBJECTIVE: Prior Hospitalization[facility] 06[facility]17 thru 06/25/16 Prior Level of Function: Independent with all ADLs/IADLs. Pt's spouse is w/c dependent and pt and spouse work together to complete IADLs. Pt completes light IADLs and has private assistance for "deeper cleaning" Prior Living Status: Single level house, Spouse Community Services: Support adequate, No known needs Home Accessibility: Ramp All needs on one level Walk-in shower Tub/shower combination Equipment Owned: Front wheeled walker Toilet riser Tub/shower chair Wheelchair Machinery Repair Maintenance Supervisor Family planning on obtaining a leg research and development chemist Medical Complications/Past Medical History: Please refer to EMR Psychosocial Support: Supportive spouse and son that resides in [place] Pain Scale (0-10): No numerical rating provided at evaluation. Pt does report pain in L hip. OBJECTIVE: Strength: MMT: Right Left Shoulder Flexion WFL WFL Elbow Flexion WFL WFL Wrist Extension WFL WFL Trust Vault Custodian WFL WFL (5= normal, 4= good, 3= fair, 2= poor, 1= trace) ROM: Both upper extremities, WFL Sensation: Intact, No concerns Functional Transfer: Assistive Device: Front wheeled walker Transfer Ability: Mod (I) ADL: Upper body dressing: Assistive device: Upper body dressing ability: Independent Lower body dressing: Assistive device: Educated on sock aide/vp ad sales west. Pt owns a vp ad sales west. Pt typically refusing to use LB AE, reports spouse will assist at home. Lower body dressing ability: Occasional Min A for threading pants- declines use of LB AE. Able to complete (I)ly with increased time. Toileting: Assistive device: Raised toilet seat Toileting ability: Mod (I) Grooming/hygiene: Assistive device: Grooming ability: Independent Bathing: Assistive device: Shower chair Bathing ability: Mod (I) Standardized Assessment: Dominguez Index of Activities of Daily Livin20 at initial evaluation (06/25). 18/20 at discharge date (07/03/17). ASSESSMENT: José Miguel presented to [facility] with decreased (I) with ADLs/IADLs s/p L hip fx and subsequent ORIF. At [facility], he was (I) with all ADLs/IADLs. He has met all skilled OT goals and has no further questions/concerns with discharge home. Problem List/Current Limitations: Pain Decreased activity tolerance Short Term Goals: 1) Pt will be Mod (I) toileting. GOAL MET. 2) Pt will be Mod (I) UB/LB dressing. GOAL MET. 3) Pt will be Independent grooming/hygiene. GOAL MET. 4) Pt will be Mod (I) shower task. GOAL MET. 5) Pt Dominguez Index of ADLs score will improve by 2 points. GOAL MET. Paleobotanist Goals: Return home with services. Patient Goals: "Get back to moving" Rehabilitation Prognosis: Good Barriers to Discharge: Pain PLAN: Discharge home with HH services and assist from spouse. Thank you for this referral. If you have any questions, concerns, or comments about this report or plan, please contact me at . Sandy Abebe MS, OTR/L Occupational Therapist [facility]
[2017-07-03] MEDS: SIMVASTATIN 20 MG TAB PO SCH (20:49)
[2017-07-04] MEDS: traMADol 50 MG TAB PO PRN (04:58)
[2017-07-04] MEDS: ALBUTEROL/IPRATROPIUM 3 ML NEB NEB SCH (05:46)
[2017-07-04] MEDS ORDERED: METO25TA93 PO (07:21)
[2017-07-04 08:10] VITALS: BP 171/88
[2017-07-04] MEDS: DOCUSATE SODIUM 100 MG CAP PO SCH (09:00)
[2017-07-04] MEDS: POLYETHYLENE GLYCOL 17 GM PKT PO SCH (09:00)
[2017-07-04] MEDS: METOPROLOL TART 50 MG TAB PO SCH (09:04)
[2017-07-04] MEDS: guaiFENesin 600 MG TABCR PO SCH (09:04)
[2017-07-04] MEDS: ALLOPURINOL 300 MG TAB PO SCH (09:04)
[2017-07-04] MEDS: PANTOPRAZOLE SOD 40 MG TABEC PO SCH (09:04)
[2017-07-04] MEDS: TAMSULOSIN HCL 0.4 MG CAP PO SCH (09:04)
[2017-07-04] MEDS: FINASTERIDE 5 MG TAB PO SCH (09:04)
[2017-07-04] MEDS: ENOXAPARIN 40 MG/0.4ML SYR SC SCH (09:05)
[2017-07-04] MEDS: ASPIRIN 81 MG ENTERIC COATED PO SCH (09:05)
--- NOTE | 2017-07-04 18:47 | PT ECF NOTE ---
Type of Note: Discharge Note Primary Medical Diagnosis: L Hip ORIF s/p hip fx sustained from a fall. WBAT; no posterior precautions. Physical Therapy Evaluation Date: 06/25/17 SUBJECTIVE: Prior Hospitalization: [facility] 06/22/17 thru 06/25/16 Prior Level of Function: Independent with all ADLs/IADLs. Pt's spouse is w/c dependent and pt and spouse work together to complete IADLs. Pt completes light IADLs and has private assistance for "deeper cleaning" Prior Living Status: Single level house, Spouse Community Services: Support adequate, No known needs Home Accessibility: Ramp, All needs on one level, Walk-in shower, Tub/shower combination Equipment Owned:Front wheeled walker, Toilet riser, Tub/shower chair, Wheelchair, Operations Business Partner , Family planning on obtaining a leg air tank assembler Medical Complications/Past Medical History: Please refer to EMR Psychosocial Support: Supportive spouse and son that resides in [place] Pain Scale (0-10): No numerical rating provided at evaluation. Pt does report some left hip discomfort. OBJECTIVE: Strength: L) LE 3-/5 overall with pt unable to perform full ROM marching in sitting against gravity. R) LE is 4+/5 overall. ROM: (please note any abnormalities) Somewhat limited on L) LE due to pain, R ) LE WNL. Sensation: (please note any abnormalities) Pt denies any paresthesias. Other Neuro findings: none reported Bed Mobility: Indep Assistive device: none Transfers: Indep Assistive Device: Front wheeled walker Gait: Indep Assistive device: Front wheeled walker Stairs: Pt declined to address Assistive device: Timed Up and Go (>12 seconds indicated increased risk for falls): 36 seconds 10 meter walk test (0.6m/second cannot function independently): n/a Other Objective Measures: n/a ASSESSMENT: Pt has been fairly self limiting with regard to participation level in therapy. Pt may benefit at this time, from transferring home and continuing with [facility] in order to return to a more mobile lifestyle in his own environment. Pt is indep with all transfers and is aware of safety skills with ambulation using FWW. Pt continues to have pain and weakness in L) LE but has been provided with HEP handouts to complete as tolerated. Problem List/Current Limitations: Pain, Decreased activity suze, Decreased strength, Decreased ROM, Decreased balance, Generalized weakness, Nausea Short Term Goals: 1. Pt to be indep with bed mobility and supine to/from sit transfers- Met 2. Pt to be indep with sit to/from stand transfers with least restrictive device.- Met 3. Pt to be indep with ambulation x 150' with least restrictive device and improved wilfredo, as demonstrated by TUG test.- Met Skilled Nursing Goals: Return home with adequate indep and assistance for IADL's as needed. Patient Goals: Return home Rehabilitation Prognosis: Good Barriers for Discharge: Pt will need to be fully indep to feel safe transferring home, as his is unable to assist with mobility. PLAN: Pt to discharge home with further therapy recommended through [facility] agency. Thank you for this referral. If you have any questions, concerns, or comments about this report or plan, please contact me at . H. Zuly Braga, PT, MPT MTDD
== END 2017-07-04 12:10 | disposition home health service (06) | DRG 561 ==
LOC: ECF 10:15
PROVIDERS: ADMIT Orthopaedic Surgery; ATTEND Orthopaedic Surgery
DX: S72.142D Displaced intertrochanteric fracture of left femur, subsequent encounter for closed fracture with routine healing (principal); I12.9 Hypertensive chronic kidney disease with stage 1 through stage 4 chronic kidney disease, or unspecified chronic kidney disease; N18.3 Chronic kidney disease, stage 3 (moderate); I25.10 Atherosclerotic heart disease of native coronary artery without angina pectoris; K27.7 Chronic peptic ulcer, site unspecified, without hemorrhage or perforation; K21.9 Gastro-esophageal reflux disease without esophagitis; E78.5 Hyperlipidemia, unspecified; D64.9 Anemia, unspecified; M1A.9XX0 Chronic gout, unspecified, without tophus (tophi); J44.9 Chronic obstructive pulmonary disease, unspecified; W01.0XXD Fall on same level from slipping, tripping and stumbling without subsequent striking against object, subsequent encounter; Y92.003 Bedroom of unspecified non-institutional (private) residence as the place of occurrence of the external cause; Y99.8 Other external cause status; Z87.891 Personal history of nicotine dependence; Z96.653 Presence of artificial knee joint, bilateral; Z95.5 Presence of coronary angioplasty implant and graft; Z91.040 Latex allergy status; Z92.3 Personal history of irradiation; Z88.0 Allergy status to penicillin; Z79.01 Long term (current) use of anticoagulants; Z93.0 Tracheostomy status; Z92.21 Personal history of antineoplastic chemotherapy; Z85.89 Personal history of malignant neoplasm of other organs and systems
CPT/HCPCS: 36415; 82310; 82374; 82435; 82565; 82947; 84132; 84295; 84520; 85025; 94640; 97161; 97165; J1650; Q0163; S0119

== ENCOUNTER 2017-11-07 10:20 | Outpatient (RCR) | payer MEDICARE, BC ==
[2017-06-26 17:22] VITALS: Wt 62.9 kg
[~2017-11-07 10:20] MED LIST changes: +ASPI-764 PO; +DOCU-202 PO; +METO25TA93 PO; +PANT40TA65 PO; +PROMETHAZINE 25 MG/ML 1 ML AMP ONE; +TRAM-420 PO
[2017-11-07 10:40] VITALS: BP 101/74
--- NOTE | 2017-11-07 12:49 | ONCOLOGY FOLLOW UP NOTE ---
EVENT DATE: November 07, 2017 DIAGNOSES 1. 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 2. History of myocardial infarction, status post stenting of ascending coronary artery in 1996. 3. History of peptic ulcer disease, status post truncal vagotomy and pyloroplasty. 4. Hypertension. 5. Hyperlipidemia. 6. Chronic obstructive pulmonary disease. CHIEF COMPLAINT Patient is here today for followup of his head and neck cancer. ONCOLOGY HISTORY Patient is a 72-year-old male who was diagnosed with stage Claude (T3 N2c M0) squamous cell carcinoma of the larynx in 2008. During that time, the patient was treated with chemotherapy and radiation therapy. He was treated between November 2008 through December 2008 and received a total of 62 Gy radiation therapy to the larynx and regional lymph nodes in conjunction with two cycles of cisplatinum given every three weeks at that time. The patient remains in complete remission since then. He had a direct laryngoscopy with multiple biopsies of the right vallecula, vocal cords and the anterior and posterior commissure done December 2011 and those results came back negative. HISTORY OF PRESENT ILLNESS Patient is here today for followup of his head and neck cancer. He is complaining of pain in the neck and hips from arthritis. He has also numbness in the right index and middle fingers. He is weak, tired and fatigued. PAST MEDICAL HISTORY 1. Squamous cell carcinoma of the larynx diagnosed in 2008. 2. Right wrist fracture in February of 2009. 3. Myocardial infarction with single coronary artery stent placed in 1996. 4. Hypertension. 5. Hyperlipidemia. 6. COPD. 7. Arthritis. 8. History of ulcer disease. PAST SURGICAL HISTORY 1. Tracheostomy October 2008. 2. Truncal vagotomy and pyloroplasty October 2008. 3. Feeding jejunostomy tube October 2008. 4. Open reduction internal fixation of the right femoral neck fracture. 5. Status post anterior cruciate ligament repair. 6. Status post previous elbow surgery. SOCIAL HISTORY The patient is . He has a daughter and son. He is retired. He was exposed to asbestos in the past. He has about two drinks per month. He quit tobacco October 2008. Prior to that, he smoked for about 41 years. He denies any abuse of drugs. FAMILY HISTORY Father had lung cancer at the age of 68. Grandfather had leukemia. He has an aunt with some sort of cancer, but he does not know exactly what type. MEDICATION 1. Folic acid 1 mg daily. 2. Percocet 5/325 one tablet q.4 hourly p.r.n. 3. Colchicine 0.6 mg one capsule daily. 4. Allopurinol 300 mg daily. 5. Hydrocodone/acetaminophen 5/325 p.o. q.4-6 hourly p.r.n. for pain. 6. Caltrate plus vitamin D one tablet twice daily. 7. Simethicone 125 mg chewable tablets daily. 8. Finasteride 5 mg daily. 9. Flomax 0.4 mg daily. 10. Simvastatin 40 mg one-half tablet at bedtime. ALLERGIES 1. PENICILLIN, which causes rash and fever. REVIEW OF SYSTEMS CONSTITUTIONAL: No appetite or weight change. No fever, chills or sweating. No recent infection. HEENT: Ears: No tinnitus or hearing problem. Nose: No nasal discharge or epistaxis. Throat: No sore throat or mouth ulcers. Eyes: No diplopia or visual changes. RESPIRATORY: He has cough and shortness of breath. No expectoration or hemoptysis. CARDIOVASCULAR: No chest pain, orthopnea, or paroxysmal nocturnal dyspnea (PND) . No edema. No palpitations. GASTROINTESTINAL: No nausea or vomiting. He has diarrhea. No constipation. No change in bowel movements. No heartburn. He has swallowing difficulties sometimes. No abdominal pain. No jaundice. No hematemesis, melena or rectal bleeding. GENITOURINARY: No hematuria or dysuria. MUSCULOSKELETAL: Patient has pain in the back of the neck and hips from arthritis. NEUROLOGICAL: No numbness in the right index and middle fingers. No headaches or convulsions. HEMATOLOGIC/LYMPHATIC: He bruises easily. He is weak, tired, and fatigued. No enlarged lymph nodes. SKIN: No skin rash or lumps. PSYCHIATRIC: No anxiety or depression. PHYSICAL EXAMINATION GENERAL: Looks stable. Well-developed, well-nourished, and in no acute distress. VITAL SIGNS: Blood pressure 101/74, pulse 88 per minute, respirations 16 per minute, temperature 97.8, pulse oximetry 92% on room air. HEENT: Head: Atraumatic. No sinus tenderness to palpation. Eyes: No icterus or conjunctivitis. Mouth and throat: No oral thrush or mucositis. NECK: Supple. No cervical or supraclavicular lymphadenopathy. LUNGS: Clear to auscultation and percussion bilaterally. HEART: Regular rate and rhythm. No gallops, murmurs, clicks or rubs. ABDOMEN: Soft and lax. No tenderness. No hepatosplenomegaly. No masses. EXTREMITIES: No cyanosis, clubbing or edema. LYMPHATICS: No peripheral lymphadenopathy. NEUROLOGICAL: Conscious, alert and oriented times three. No focal motor or sensory deficits. PSYCHIATRIC: Mood and affect appear normal. SKIN: No skin rash, bruise or purpuric eruption. DIAGNOSTIC DATA CBC showed white count 5.1, hemoglobin 12.2, hematocrit 36.5, platelets 234, 000. Chem panel is still pending. ASSESSMENT 1. Stage Claude (T3 N2c M0) squamous cell carcinoma of the larynx, initially diagnosed October 2008, status post chemotherapy and radiation therapy. He received two cycles of full dose chemotherapy with cisplatinum together with radiation therapy between November 2008 through December 2008. He is currently in complete remission. I advised the patient to continue followup with is ENT physician. I am planning to see him again in six months with CBC and chem panel at that time. 2. Coronary artery disease, status post myocardial infarction and stenting of one single coronary artery in 1996. 3. History of peptic ulcer disease, status post truncal vagotomy and pyloroplasty in October 2008. 4. Chronic obstructive pulmonary disease. 5. Vitamin D deficiency on supplement. 6. Hyperhomocysteinemia. Patient currently on folic acid 3 mg daily, vitamin B complex one tablet twice daily. His fasting homocysteine level currently is pending. I will await the results to decide about supplementation. PLAN 1. Continue followup. 2. Patient to return in six months with CBC, chem panel, and fasting homocysteine, TSH and free T4. 3. Continue folic acid and vitamin B complex supplement. 4. Patient to contact us for any new concern or complaints. JEFFREY
== END 2017-12-11 14:14 | disposition home or self-care (01) ==
LOC: ONC 10:20
PROVIDERS: ATTEND Internal Medicine Hematology
DX: Z85.21 Personal history of malignant neoplasm of larynx (principal); I25.10 Atherosclerotic heart disease of native coronary artery without angina pectoris; J44.9 Chronic obstructive pulmonary disease, unspecified; E55.9 Vitamin D deficiency, unspecified; E72.11 Homocystinuria; I10 Essential (primary) hypertension; E78.5 Hyperlipidemia, unspecified; I25.2 Old myocardial infarction; R53.1 Weakness; R53.83 Other fatigue; Z87.891 Personal history of nicotine dependence
CPT/HCPCS: 36415; 83090; 84439; 84443; 85027; G0463; 82040; 82247; 82310; 82374; 82435; 82565; 82947; 84075; 84132; 84155; 84295; 84450; 84460; 84520; 99212

== ENCOUNTER 2018-02-25 14:16 | Outpatient (RCR) | payer MEDICARE, BC ==
[2017-06-26 17:22] VITALS: BMI 16.9
[~2018-02-25 14:16] MED LIST changes: -PROMETHAZINE 25 MG/ML 1 ML AMP ONE
[2018-03-18] MEDS ORDERED: ASPI81TA94 PO (08:52)
[2018-03-18] MEDS ORDERED: MIRT-27 PO (08:56)
[2018-03-18] MEDS ORDERED: VITA-175 PO (08:56)
[2018-03-18] MEDS ORDERED: ACET-2146 PO (08:56)
[2018-03-27] MEDS ORDERED: HYDR-4309 PO (07:57)
[2018-03-27] MEDS ORDERED: DOCU-416 PO (07:57)
[2018-03-27] MEDS ORDERED: PHEN200T32 PO (07:58)
[2018-03-27] MEDS ORDERED: OXYB-13 PO (07:59)
== END 2018-04-01 ==
LOC: CT 14:16
PROVIDERS: ATTEND Urology
DX: N20.0 Calculus of kidney (principal); K80.20 Calculus of gallbladder without cholecystitis without obstruction; R97.20 Elevated prostate specific antigen [PSA]
CPT/HCPCS: 36415; 84153

== ENCOUNTER → 2018-03-05 | Outpatient (REF) | payer MEDICARE, BC ==
[2017-06-26 17:22] VITALS: BMI 16.9
[2018-03-05 17:16] LABS: INR 0.96
== END ==
LOC: ZZSENDIN 15:35
PROVIDERS: ATTEND Family Medicine
DX: N20.9 Urinary calculus, unspecified (principal)
CPT/HCPCS: 85610; 85730

== ENCOUNTER → 2018-03-23 | Outpatient (CLI) | payer MEDICARE, BC ==
[2017-06-26 17:22] VITALS: BMI 16.9
[~2018-03-23] MED LIST changes: +ACET-2146 PO; +ASPI81TA94 PO; +MIRT-27 PO; +VITA-175 PO
[2018-03-23 15:04] LABS: INR 1.01
== END ==
LOC: LAB 13:41
PROVIDERS: ATTEND Family Medicine
DX: Z85.01 Personal history of malignant neoplasm of esophagus (principal)
CPT/HCPCS: 36415; 85610; 85730

== ENCOUNTER 2018-03-26 00:09 | Observation (INO) | payer MEDICARE, BC ==
--- NOTE | 2018-03-25 18:21 | HISTORY AND PHYSICAL ---
DATE OF ADMISSION: March 26, 2018 CHIEF COMPLAINT Bilateral kidney stones and bladder stones. HISTORY OF PRESENT ILLNESS Patient is a 72-year-old white male who has been followed in the Urology Clinic for the past six years for BPH symptoms with incomplete bladder emptying. The patient had a partial SBO in January 2017 and underwent a CAT scan to evaluate his abdominal pain. He was seen in the Urology Clinic in May of that year, and the scan was reviewed. He was noted to have bilateral kidney stones, approximately four or five on the right and five to six on the left. The largest stone on the right was 6 mm, and the largest stone on the left was 10 mm. He was also noted to have some renal scarring on the right side. He had no hydronephrosis or other anomalies. The patient returned to the clinic in mid February of this year with a followup low-dose CT scan which showed a significant increase in his stone burden bilaterally with a partial staghorn calculus in the left lower pole and partial staghorn in the right kidney in the mid poles. He was also noted to have approximately four bladder stones ranging 5 to 3 mm in size. The films were reviewed with the patient and discussed. He has elected to undergo treatment with anesthetic cystoscopy with bladder stone removal, followed by stent placement with extracorporeal shock wave lithotripsy. He understands his stone burden is significant and may require multiple treatments on each side. Other options of continuous observation versus a percutaneous lithotomy were also discussed. PAST MEDICAL HISTORY 1. Squamous cell carcinoma of the larynx diagnosed 2008. 2. Myocardial infarction in 1996. 3. Hypertension. 4. Hyperlipidemia. 5. COPD. 6. Arthritis. 7. Peptic ulcer disease. 8. Gout. 9. Orthostatic hypotension. 10. BPH with history of incomplete bladder emptying. PAST SURGICAL HISTORY 1. Tracheostomy in 2008. 2. Truncal vagotomy and pyloroplasty 2008. 3. Feeding tube jejunostomy 2008. 4. Open reduction, internal fixation of a right femoral neck fracture. 5. Right ACL repair. 6. Elbow surgery. 7. Left hip fracture repair in 2016. 8. Cardiac stenting 1996. MEDICATIONS 1. Folic acid. 2. Percocet. 3. Colchicine. 4. Allopurinol. 5. Ramer. 6. Vitamin D and calcium. 7. Simethicone. 8. Finasteride. 9. Flomax. 10. Simvastatin. 11. Aspirin. ALLERGIES PENICILLIN. FAMILY HISTORY Significant for lung cancer in father. SOCIAL HISTORY Patient is and retired. He lives in [place], [place]. He has a remote history of tobacco which he quit in 2008. Prior to that, he had smoked 41 years. REVIEW OF SYSTEMS Patient denies chest pain, shortness of breath, nausea, vomiting, fever, chills, bleeding disorder, productive cough, or liver disease. PHYSICAL EXAMINATION GENERAL: Patient is an elderly white male in no acute distress. HEENT: Normocephalic, atraumatic. RESPIRATORY: He has no tachypnea. His breath sounds are clear. CARDIOVASCULAR: Regular rate and rhythm. ABDOMINAL: Soft, nontender. No masses are palpated. GENITOURINARY: Deferred to the OR. EXTREMITIES: Without clubbing, cyanosis, or edema. NEUROLOGIC: Nonfocal. LABORATORY DATA Normal urinalysis in the Urology Clinic without evidence of infection or blood. Most recent PSA was 2.0. He had a creatinine of 1.4 in October of this past year. IMPRESSION A 72-year-old white male with: 1. Significant increasing bilateral stone burden in both kidneys with a few bladder stones. 2. History of benign prostatic hypertrophy. PLAN Will perform anesthetic cystoscopy with cystolitholapaxy of his bladder stones, followed by ureteral stent placement with extracorporeal shock wave lithotripsy and/or ureteroscopy as indicated. MTDD
[2018-03-26] VITALS (8 sets, daily range): BP systolic 128–171; BP diastolic 80–123
[~2018-03-26] VITALS: Ht 198.1 cm; Wt 60.4 kg
[2018-03-26] MEDS ORDERED: LIDOCAINE/SOD BICARB 8.4% SYR ID ONE (06:45)
[2018-03-26] MEDS ORDERED: MIDAZOLAM 2 MG/2 ML VIAL IVP PRN (06:45)
[2018-03-26] MEDS ORDERED: LEVOFLOXACIN/D5W*500 MG/100 ML 100 ML IVPB ONE (06:45)
[2018-03-26] MEDS ORDERED: NORMOSOL R SOLN(*) 1000 ML BAG 1,000 ML IV PRN (06:45)
[2018-03-26] MEDS ORDERED: FAMOTIDINE 20 MG TAB PO ONE (06:45)
[2018-03-26 10:33] LABS: PLATELET COUNT, AUTOMATED 274 K/uL (150-450)
[2018-03-26] MEDS ORDERED: fentaNYL CITR 100 MCG/2 ML AMP ONE ×4 (10:36→16:50)
[2018-03-26] MEDS ORDERED: PROPOFOL EMUL(*) 10MG/ML 20 ML 20 ML ONE (10:37)
[2018-03-26] MEDS ORDERED: DEXAMETHASONE SOD 4 MG/ML VIAL ONE (10:37)
[2018-03-26] MEDS ORDERED: LIDOCAINE MPF 1% 5 ML VIAL ONE (10:37)
[2018-03-26] MEDS ORDERED: ONDANSETRON 4 MG/2 ML VIAL ONE ×2 (10:37→16:09)
[2018-03-26 10:41] LABS: INR 1.03
[2018-03-26] MEDS ORDERED: IOPAMIDOL-200 50 ML VIAL IS ONE (11:05)
[2018-03-26] MEDS ORDERED: ASPIRIN 81 MG ENTERIC COATED PO ONE (11:25)
[2018-03-26] MEDS ORDERED: SUCCINYLCHOL CHL 200MG/10ML VL ONE (11:30)
[2018-03-26] MEDS ORDERED: BELLADONNA ALK/OPIUM 60MG SUPP PR ONE (13:59)
[2018-03-26] MEDS ORDERED: ZOLPIDEM TARTRATE 5 MG TAB PO PRN (14:05)
[2018-03-26] MEDS ORDERED: FLUSH 10 ML SYR IVP PRN (14:05)
[2018-03-26] MEDS ORDERED: NS 0.9% 3000 ML IRRIGATION BAG 3,000 ML IR PRN (14:10)
[2018-03-26] MEDS ORDERED: OXYBUTYNIN CHL XL 5 MG TABCR PO ONE (15:00)
[2018-03-26] MEDS ORDERED: LABETALOL HCL 100 MG/20ML VIAL ONE ×3 (15:08→15:31)
--- NOTE | 2018-03-26 15:15 | RADIOLOGY IMAGING REPORT ---
[place] [facility] [place] NAME: José Miguel Lara : 1945 MR: [id number] V: [id number] EXAM DATE: ORDERING PHYSICIAN: ELISHA DOHERTY TECHNOLOGIST: Location: [facility] Patient: José Miguel Lara : 1945 Visit/Account:[id number] Date of Sevice: 03/26/2018 Exam: C-ARM FLUORO >1 HR Indication: RENAL CALCULI, RAD Comparison: None available Findings: Fluoroscopy is provided for right-sided ureteroscopy and stent placement. Fluoroscopy time 0.09 minutes DOSE: Air kerma was 4.75 mGy. IMPRESSION: Procedural fluoroscopy Report Dictated By: Calvin Allen at 03/26/2018 3:10 PM Report E-Signed By: Calvin Allen at 03/26/2018 3:11 PM WSN:[id number]
--- NOTE | 2018-03-26 15:34 | OPERATIVE REPORT 1 ---
EVENT DATE: March 26, 2018 SURGEON: Darien Henderson MD ANESTHESIOLOGIST: Mario Alberto Dong MD ANESTHESIA: General anesthetic. PREOPERATIVE DIAGNOSES 1. Bladder calculi. 2. Bilateral renal calculi. POSTOPERATIVE DIAGNOSES 1. Bladder calculi. 2. Bilateral renal calculi. PROCEDURES PERFORMED 1. Cystoscopy. 2. Grasping and removal of multiple bladder stones times 20, ranging from 5 to 2 mm in size. 3. Right internal double-J ureteral stent placement. 4. Right extracorporeal shock wave lithotripsy. ESTIMATED BLOOD LOSS 10 mL INTRAVENOUS FLUIDS Crystalloids. DRAINS 1. A 22-Guinean three-way Erazo catheter. 2. A 6-Guinean x 26 cm Contour stent on right. PATHOLOGY Bladder stones for permanent analysis. COMPLICATIONS None. CONDITION Patient taken to recovery room awake, in stable condition. STATEMENT OF MEDICAL NECESSITY Patient is a 72-year-old white male with a history of BPH and incomplete bladder emptying who was noted to have bilateral renal calculi on a CT scan performed in January 2017 for abdominal pain. Followup scan performed in the Urology Clinic one year later revealed a significant increase in his stone burden bilaterally with partial staghorn calculi in both kidneys with the right slightly greater than left. He was also noted to have several bladder stones ranging from 2 to 5 mm in size scattered throughout the dependent portion of the bladder. The patient is now being brought to the operating room for removal of bladder stones, followed by stent placement with extracorporeal shock wave lithotripsy on the right side with the current plan of a staged procedure to be performed of the left side in the near future. DESCRIPTION OF OPERATION PERFORMED Patient was brought to the operating room. After general anesthetic was obtained, he was placed in the dorsal lithotomy position and prepped and draped in the usual sterile manner. Anesthetic cystoscopy was performed with the 21- Guinean rigid scope and 30- and 70-degree lenses. He had a normal-appearing pendulous, bulbar, and membranous urethra. His prostatic urethra showed kissing lateral lobes and a mildly friable bladder neck. His ureteral orifices were well off the bladder neck. He had several small stones, approximately 20 in number which were smooth surfaced and ranged from dark wells to black in coloration. The largest was approximately 5 mm in size. The rigid grasping forceps were introduced into working channel of the cystoscope, and each stone was individually grasped and removed intact. A total of approximately 20 stones were eventually removed. A followup cystoscopy failed to reveal any evidence of remaining stones or other anomalies. At this point, the right ureteral orifice was cannulated with a 6-Guinean opening access catheter. A 0.035 double floppy wire was advanced up to the renal pelvis. The access catheter was removed, and the wire was used to place a 6-Guinean x 26 cm Contour stent. He was noted to have good curling in the renal pelvis by fluoroscopy and curling in the bladder by direct vision. At this point, the scope was removed, a 22-Guinean three-way Erazo catheter was placed, and a slow, continuous bladder irrigation performed secondary to his friable bladder neck. The patient was then transferred to the lithotripsy table. Two-plane fluoroscopy was used to identify the stones in the right system. Care was taken to avoid his vascular calcifications on the right which were mainly medial and superior. Lithotripsy was begun on the right side at the lower pole stone cluster at a power setting of 2 and gradually increased to a power setting of 3 over the course of the first 300 shocks. A three-minute pause was then performed, and treatment resumed, gradually increasing to a power setting of 7.5 over the course of the first 1000 shocks. He received a total of 3000 shocks to the right kidney. After approximately 1000 shocks, the crosshairs were moved up to the renal pelvis stones and into the upper lateral cluster of stones. At the conclusion of treatment, no significant remaining and fragmented stone could be identified. The patient was then awakened in the operating room and taken to the recovery area in stable condition. PLAN The plan will be to keep the patient overnight for 23-hour observation with a slow CBI. We will remove his catheter in the morning and allow him to be discharged home with the plan to follow up in approximately three to four weeks for treatment of his left side and removal of the right stent. He will be discharged home on [place], Colace, Ditropan XL 5 mg, and Pyridium. JEFFREY
[2018-03-26] MEDS ORDERED: hydrALAZINE HCL 20 MG/ML VIAL IVP PRN (15:55)
[2018-03-26] MEDS ORDERED: hydrALAZINE HCL 20 MG/ML VIAL ONE (16:00)
[2018-03-26] MEDS ORDERED: PROMETHAZINE 25 MG/ML 1 ML AMP ONE (16:29)
[2018-03-26] MEDS: NS(*) 0.9% 1000 ML BAG 1,000 ML IV PRN (17:30)
--- NOTE | 2018-03-26 18:54 | Hospitalist Consultation ---
History of Present Illness Requesting Physician Dr. Henderson Reason for Consult Hypertension History of Present Illness This patient was admitted for renal stones. He required multiple doses of hydralazine and labetalol during surgery. There is no prior history of hypertension. History Problems: (1) CKD (chronic kidney disease) Status: Chronic (2) Myocardial infarction Onset Date: ~ 1996 Status: Chronic (3) SBO (small bowel obstruction) Status: Chronic (4) Head and neck cancer Status: Chronic (5) Status post emergency tracheotomy for assistance in breathing Onset Date: ~ 10/2008 Status: Chronic (6) History of vagotomy Onset Date: ~ 10/2008 Status: Chronic (7) Hx of jejunostomy Onset Date: ~ 10/2008 Status: Chronic (8) History of open reduction and internal fixation (ORIF) procedure Onset Date: ~ 12/2008 Status: Chronic (9) S/P ACL repair Status: Chronic (10) H/O elbow surgery Status: Chronic Home Meds Active Scripts Ergocalciferol (Vitamin D2) (VITAMIN D2) 50,000 Unit Capsule, 88557 UNIT PO weekly for 120 Days, #12 CAPSULE Prov:JASON BARBOZA CHIPPER MACHINE OPERATOR-BC, ONC 07/22/17 Folic Acid (FOLIC ACID) 1 Mg Tablet, 1 MG PO QDAY, #90 TAB 3 Refills Prov:JASON BARBOZA CHIPPER MACHINE OPERATOR-BC, ONC 06/09/17 Reported Medications Vitamin B Complex (B COMPLEX) 1 Each Tablet, 1 EACH PO BID 03/18/18 Acetaminophen 500 Mg Tab (ACETAMINOPHEN EXTRA STRENGTH) 500 Mg Tablet, 500 MG PO Q6-8H PRN for PAIN, TAB 03/18/18 Mirtazapine (MIRTAZAPINE) 15 Mg Tab.rapdis, 15 MG PO QDAY 03/18/18 Aspirin (ASPIRIN) 81 Mg Tab.chew, 81 MG PO QDAY, TAB.CHEW 03/18/18 Simvastatin (SIMVASTATIN) 20 Mg Tablet, 20 MG PO HS, TAB 06/22/17 Allopurinol (ZYLOPRIM) 300 Mg Tablet, 300 MG PO QDAY, TAB 03/29/16 Finasteride (FINASTERIDE) 5 Mg Tablet, 5 MG PO QDAY 04/27/14 Tamsulosin Hcl (Flomax) 0.4 Mg Cap.sr.24h, 0.4 MG PO DAILY 03/14/12 Allergies: Coded Allergies: Penicillins (Verified Allergy, Mild, CAN'T REMEMBER, 06/22/17) latex (Verified Allergy, Mild, RASH, 06/22/17) Patient History: FH: cancer AUNT FH: leukemia GRANDFATHER FH: lung cancer FATHER, Onset:68 Hx Smoking: Yes Smoking Status: Former Smoker Exposure to Second Hand Smoke?: Yes Caffeine Intake: Soda Caffeine/Cups Per Day: rarely Hx Alcohol Use: Yes Hx Substance Use Disorder: Yes Social Drug Use: Occasional Social Drugs: Marijuana, LSD History of IV Drug Use: No Review of Systems All Systems Reviewed/Normal: Yes Exam Vital Signs Vital Signs Date Time Temp Pulse Resp B/P (MAP) Pulse Ox O2 Delivery O2 Flow Rate FiO2 03/26/18 17:46 97.6 79 18 133/80 (97) 95 Nasal Cannula 4.0 Neuro: No Gross deficits Eyes: PERRLA Cardiovascular: Regular Rate and Rhythm, No JVD Respiratory: Clear to Auscultation Extremities: No Edema Medical Decision Making Data Points Result Diagram: 03/26/18 1025 03/26/18 1025 Assessment and Plan Problems: (1) Systolic hypertension, isolated Assessment & Plan: He did require multiple doses of hydralazine and labetalol during surgery, but has no prior history of hypertension. We will monitor his blood pressure overnight, and will start treatment if indicated. Central Venous Access Medical Necessity for Access: IV Access, Medication Administration Copies to: ELISHA HENDERSON MD ; Venous Thromboembolism Antithrombotics Is Pt On Any Antithrombotics?: No HAMILTON ORTA DO Mar 26, 2018 18:54
[2018-03-26] MEDS: ONDANSETRON 4 MG TAB PO PRN (20:03)
[2018-03-26] MEDS ORDERED: MIRTAZAPINE 15 MG TAB PO SCH (21:00)
[2018-03-26] MEDS: DOCUSATE SODIUM 100 MG CAP PO SCH (21:49)
[2018-03-27] VITALS: BP 151/79
[2018-03-27 07:20] VITALS: BP 135/83
[2018-03-27] MEDS ORDERED: HYDR-4309 PO (07:57)
[2018-03-27] MEDS ORDERED: DOCU-416 PO (07:57)
[2018-03-27] MEDS ORDERED: PHEN200T32 PO (07:58)
[2018-03-27] MEDS ORDERED: OXYB-13 PO (07:59)
[2018-03-27] MEDS: DOCUSATE SODIUM 100 MG CAP PO SCH (08:27)
[2018-03-27] MEDS: NS(*) 0.9% 1000 ML BAG 1,000 ML IV PRN (08:27)
[2018-03-27] MEDS ORDERED: POTASSIUM CHL PWDR 20 MEQ PKT PO ONE (08:40)
[2018-03-27] MEDS ORDERED: ALLOPURINOL 300 MG TAB PO SCH (09:00)
[2018-03-27] MEDS ORDERED: FINASTERIDE 5 MG TAB PO SCH (09:00)
[2018-03-27] MEDS ORDERED: SIMVASTATIN 20 MG TAB PO SCH (09:00)
[2018-03-27] MEDS ORDERED: TAMSULOSIN HCL 0.4 MG CAP PO SCH (09:00)
[2018-03-27 10:46] VITALS: Ht 198.1 cm; Wt 60.4 kg
--- NOTE | 2018-03-27 11:16 | Hospitalist Progress Note ---
Subjective Progress Notes Subjective No new complaints. Physical Exam Vital Signs Date Time Temp Pulse Resp B/P (MAP) Pulse Ox O2 Delivery O2 Flow Rate FiO2 03/27/18 08:32 94 Nasal Cannula 0.5 03/27/18 07:20 97.8 87 14 135/83 (100) Intake and Output 03/27/18 07:00 Intake Total 4820 ml Output Total 4780 ml Balance 40 ml Intake Oral 170 ml IV Total 2000 ml Other 2650 ml Output Urine Total 1215 ml Other 3565 ml General Appearance: Alert, Awake, No Acute Distress Eyes: PERRLA Cardiovascular: Regular Rate and Rhythm Respiratory: Clear to Auscultation GI: Other (Abdomen slightly distended, BS +.) Extremities: Warm, Perfused, Other (No edema.) Psych: Appropriate Mood & Affect Result Diagram: 03/26/18 1025 03/26/18 1025 Assessment and Plan Problems: (1) Systolic hypertension, isolated Status: Acute Assessment & Plan: He did require multiple doses of hydralazine and labetalol during surgery, but has no prior history of hypertension. Blood pressure monitored overnight and has returned to his baseline. Will not send home on medications. Central Venous Access Medical Necessity for Access: IV Access, Medication Administration Time Spent on Plan of Care: < 30 min Exam Sepsis Risk: No Definite Risk ALFRED LITTLE MD Mar 27, 2018 11:16
--- NOTE | 2018-03-27 14:09 | Medical Nutrition Therapy ---
Nutrition Anthropometrics Height (Inches): 78.00 Height (Calculated Centimeters: 198.628494 Weight (Pounds): 133 Weight (Calculated Kilograms): 60.356 Josué Nutrition Score: Probably Inadequate Josué Nutrition Risk Score: 18 Dietary Referral Nutrition Risk Factors: Diff. Swallowing Nutrition Risk Comment: Removed part of stomach Physical Findings Physical Appearance: Underweight BMI<19 (BMI 15.4) Skin Appearance Skin Appearance: Edema Edema Location Modifier: Edema Location: Type of Edema: Degree of Edema: Gastrointestinal Symptoms GI Symtoms: Nausea Tube Present: Bowel Sounds: Recent Bowel Pattern: Stool Characteristics: Nutritional Diagnosis Nutritional Risk Acuity 1: %IBW < 74% Nutritional Risk Acuity 2: Swallowing Problem Nutritional Risk Acuity 3: Nausea, Weight Loss Past Medical History: HTN, CKD-III, CAD , Nephrolithiasis, PUD, Dyslipidemia, Osteoarthritis, Gout and Throat Cancer HX of [place], Hyperlipidemia, COPD, 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 Loss Nutrition Etiology: Change in Appetite Nutrition Problem/Etiology/Sym: AEB 9.1% wt loss 9 months with pt reporting poor appetite. Energy Requirement: 2435 (M0 StJ +500 kcal for wt gain) Protein Requirement: 72 (1.2g/kg) Fluid Requirement: 1800 (30ml/kg) Diet Type: Diet as Tolerated RALPH/REG Nutrition Intervention: Cont diet as ordered, Encourage intake, Between meal supplement Additional Diet Restrictions: OFFER NUTITIONAL SUPPLMENTS- TRY MAGIC CUP Diet Comment To RSA: encourage high kcal foods. Nutrition Monitoring & Eval Nutrition Goals: Eat 75-100% Meal RD Patient Assessment Time: [address] Assessment Type: RD Assessment Patient Nutrition Acuity: 1-High Follow Up Date: Mar 30, 2018 Nutritional Comment: 03/27 Pt admitted for lithotripsy. Pt has hx of underweight however wt is down from last admit. Pt weighed 146# in 06/2017. Current wt of 133# is a 9% wt loss in 9 months. Pt reporting nausea but ate 100% of meal. alb3.7, creatinine 1.3. Will encourage high kcal foods. Will conduct nutrition physical assessment if pt permits. 03/27 Pt states has been thin ~ 8 years after dx of thoat Ca. Discussed wt loss this past year. Pt states has not had an appetite. PCP prescibed appetite enhancer but pt didn't think it worked. Recommend pt try nutritonal supplments but he said he didn't like them. Recommend try milkshake and pt refused. Pt states would try magic cup. Pt declined nutr physical assessment. Observed prominent clavical bone. Will cont to monitor and encouage intake. TAMI FERNÁNDEZ Mar 27, 2018 14:09
[2018-03-27] MEDS ORDERED: NS(*) 0.9% 500 ML BAG 500 ML IV ONE (14:20)
[2018-03-27 15:05] VITALS: BP 154/79
[2018-03-27] MEDS: ONDANSETRON 4 MG TAB PO PRN (16:52)
== END 2018-03-27 09:04 | disposition home or self-care (01) ==
LOC: OR 00:09 → MED 17:40
PROVIDERS: ADMIT Urology; ATTEND Urology
DX: N21.0 Calculus in bladder (principal); N20.0 Calculus of kidney; E78.5 Hyperlipidemia, unspecified; Z79.82 Long term (current) use of aspirin; J44.9 Chronic obstructive pulmonary disease, unspecified; I95.1 Orthostatic hypotension; M10.9 Gout, unspecified; I12.9 Hypertensive chronic kidney disease with stage 1 through stage 4 chronic kidney disease, or unspecified chronic kidney disease; N18.9 Chronic kidney disease, unspecified
CPT/HCPCS: 36415; 50590; 52310; 76001; 81001; 82365; 85025; 85610; 85730; 87088; 88300; A9270; C1769; C2617; G0378; J0330; J0360; J1100; J1956; J2001; J2405; J2550; J2704; J3010; J3490; J7030; J7040; Q0162; 82040; 82247; 82310; 82374; 82435; 82565; 82947; 84075; 84132; 84155; 84295; 84450; 84460; 84520; Q9966; S0119

== ENCOUNTER 2018-03-28 01:39 | Inpatient (IN) | payer MEDICARE, BC ==
[2018-03-27 10:46] VITALS: Ht 198.1 cm; Wt 67.2 kg
[~2018-03-28] VITALS: Ht 198.1 cm; Wt 67.2 kg
[~2018-03-28 01:39] MED LIST changes: +DOCU-416 PO; +HYDR-4309 PO; +OXYB-13 PO; +PHEN200T32 PO
--- NOTE | 2018-03-28 02:02 | ER Report ---
History and Physical Time Seen By MD: 02:02 Hx. of Stated Complaint: Patient states he had a procedure with Dr. Henderson on Friday, at which time a estrada was placed. Patient states the catheter is leaking and he tried to pull the catheter out. (DIONTE LOPEZ MD) HPI/ROS CHIEF COMPLAINT: catheter problems HISTORY OF PRESENT ILLNESS: This is a 72 year old male. He had a procedure with Dr. Henderson yesterday, removal of bladder stones, cystoscopy and lithotripsy with estrada catheter. He had some problems with elevated blood pressure and was kept overnight in the hospital and discharged in the afternoon. He had the catheter in place and has not drained the bag. It had 75cc in with reddish colored urine. He said that the catheter was leaking. He has some abdominal discomfort, but no pain. He tried to pull the catheter out. He has been drinking fluids since returning home. Denies shortness of breath or chest pain. (DIONTE LOPEZ MD) Allergies: Coded Allergies: Penicillins (Verified Allergy, Mild, CAN'T REMEMBER, 03/28/18) latex (Verified Allergy, Mild, RASH, 03/28/18) Home Meds Active Scripts Ergocalciferol (Vitamin D2) (VITAMIN D2) 50,000 Unit Capsule, 84632 UNIT PO weekly for 120 Days, #12 CAPSULE Prov:JASON BARBOZA RETAIL ACCOUNT REPRESENTATIVE-BC, ONC 07/22/17 Folic Acid (FOLIC ACID) 1 Mg Tablet, 1 MG PO QDAY, #90 TAB 3 Refills Prov:JASON BARBOZA RETAIL ACCOUNT REPRESENTATIVE-BC, ONC 06/09/17 Reported Medications Oxybutynin Chloride (DITROPAN XL) 5 Mg Tab.er.24, 5 MG PO QDAY PRN for SPASMS, #10 TAB 03/27/18 Phenazopyridine Hcl (PHENAZOPYRIDINE HCL) 200 Mg Tablet, 200 MG PO TID PRN for SPASMS, #30 TAB 03/27/18 Hydrocodone Bit/Acetaminophen (NORCO 5-325 TABLET) 1 Each Tablet, 1-2 TAB PO Q6H PRN for PAIN, #30 TAB 03/27/18 Vitamin B Complex (B COMPLEX) 1 Each Tablet, 1 EACH PO BID 03/18/18 Acetaminophen 500 Mg Tab (ACETAMINOPHEN EXTRA STRENGTH) 500 Mg Tablet, 500 MG PO Q6-8H PRN for PAIN, TAB 03/18/18 Mirtazapine (MIRTAZAPINE) 15 Mg Tab.rapdis, 15 MG PO QDAY 03/18/18 Aspirin (ASPIRIN) 81 Mg Tab.chew, 81 MG PO QDAY, TAB.CHEW 03/18/18 Simvastatin (SIMVASTATIN) 20 Mg Tablet, 20 MG PO HS, TAB 06/22/17 Allopurinol (ZYLOPRIM) 300 Mg Tablet, 300 MG PO QDAY, TAB 03/29/16 Finasteride (FINASTERIDE) 5 Mg Tablet, 5 MG PO QDAY 04/27/14 Tamsulosin Hcl (Flomax) 0.4 Mg Cap.sr.24h, 0.4 MG PO DAILY 03/14/12 Discontinued Reported Medications Docusate Sodium (COLACE) 100 Mg Capsule, 100 MG PO BID, #30 CAPSULE 03/27/18 Reviewed Nurses Notes: Yes (DIONTE LOPEZ MD) Hx Smoking: Yes Smoking Status: Former Smoker Exposure to Second Hand Smoke?: Yes Hx Substance Use Disorder: Yes Hx Alcohol Use: Yes (DIONTE LOPEZ MD) Constitutional Vital Sign - Last 24 Hours 03/28/18 03/28/18 03/28/18 03/28/18 01:49 01:50 02:30 03:00 Temp 97.9 Pulse 115 106 102 Resp 24 B/P (MAP) 137/89 138/86 (103) 152/78 (102) Pulse Ox 95 92 93 O2 Delivery Nasal Cannula Nasal Cannula Nasal Cannula O2 Flow Rate 2.0 2 2 03/28/18 03/28/18 03/28/18 03/28/18 03:30 04:00 04:30 05:00 Pulse 105 108 110 114 B/P (MAP) 162/92 (115) 159/82 (107) 176/93 (120) 177/91 (119) Pulse Ox 93 94 91 90 O2 Delivery Nasal Cannula Nasal Cannula Nasal Cannula Nasal Cannula O2 Flow Rate 2 2 2 2 03/28/18 03/28/18 03/28/18 03/28/18 05:30 06:00 07:35 08:05 Temp 98.3 Pulse 120 118 118 Resp 22 B/P (MAP) 193/97 (129) 189/94 (125) 146/101 (116) 186/101 (129) Pulse Ox 94 92 94 93 O2 Delivery Nasal Cannula Nasal Cannula Nasal Cannula Nasal Cannula O2 Flow Rate 2 2 3 3 03/28/18 03/28/18 03/28/18 08:43 09:34 09:57 Pulse 109 104 110 Resp 19 19 18 B/P (MAP) 174/94 (120) 191/107 (135) 199/108 (138) Pulse Ox 97 98 95 O2 Delivery Nasal Cannula Nasal Cannula Nasal Cannula O2 Flow Rate 3 3 3 Intake and Output 03/27/18 03/27/18 03/28/18 15:00 23:00 07:00 Intake Total 2000 ml Output Total 75 ml Balance 1925 ml (JAVIER FOFANA MD) Physical Exam General Appearance: The patient is alert. No acute distress. Respiratory: Lungs are clear to auscultation. Cardiovascular: Regular rate and rhythm. No murmurs, gallops or rubs. No edema. Gastrointestinal: Abdomen is soft, discomfort with suprapubic palpation, but not very distended. Normal active bowel sounds. No costovertebral angle tenderness with percussion. Neurological: Alert and oriented x3. Genitourinary: normal appearing without redness. No active draining around the catheter at the meatus. Skin: Warm and dry. No rashes. DIFFERENTIAL DIAGNOSIS: After history and physical exam, differential diagnosis was considered for concern about urination and the catheter. Would suspect urinary retention and will get a bladder scanner and try flushing the catheter. (DIONTE LOPEZ MD) Medical Decision Making Data Points Result Diagram: 03/28/18 0240 03/28/18 0820 Laboratory Hematology Test 03/28/18 00:00 03/28/18 02:40 03/28/18 04:50 03/28/18 08:20 Troponin I 0.061 ng/ml B-Type Natriuretic Peptide 384 pg/ml (0-100) Red Blood Count 3.18 M/uL (4.00-5.60) Mean Corpuscular Volume 105.0 fL (80.0-96.0) Mean Corpuscular Hemoglobin 33.8 pg (26.0-33.0) Mean Corpuscular Hemoglobin Concent 32.2 g/dL (32.0-36.0) Red Cell Distribution Width 14.3 % (11.5-14.5) Mean Platelet Volume 8.3 fL (7.2-11.1) Neutrophils (%) (Auto) 88.6 % (39.4-72.5) Lymphocytes (%) (Auto) 2.4 % (17.6-49.6) Monocytes (%) (Auto) 8.0 % (4.1-12.4) Eosinophils (%) (Auto) 0.0 % (0.4-6.7) Basophils (%) (Auto) 1.0 % (0.3-1.4) Nucleated RBC Relative Count (auto) 0.0 /100WBC Neutrophils # (Auto) 10.4 K/uL (2.0-7.4) Lymphocytes # (Auto) 0.3 K/uL (1.3-3.6) Monocytes # (Auto) 0.9 K/uL (0.3-1.0) Eosinophils # (Auto) 0.0 K/uL (0.0-0.5) Basophils # (Auto) 0.1 K/uL (0.0-0.1) Nucleated RBC Absolute Count (auto) 0.00 K/uL Total Bilirubin 0.6 mg/dl (0.2-1.3) Aspartate Amino Transf (AST/SGOT) 22 U/L (0-35) Alanine Aminotransferase (ALT/SGPT) 26 U/L (0-56) Alkaline Phosphatase 49 U/L (0-126) Total Protein 6.6 g/dl (6.3-8.2) Albumin 3.5 g/dl (3.5-5.0) Urine Color Yellow Urine Clarity Slightly-cloudy Urine pH 5.0 pH (4.8-9.5) Urine Specific [place] 1.016 Urine Protein 100 mg/dL (NEGATIVE) Urine Glucose (UA) Negative mg/dL (NEGATIVE) Urine Ketones Negative mg/dL (NEGATIVE) Urine Blood Large (NEGATIVE) Urine Nitrite Negative (NEGATIVE) Urine Bilirubin Negative (NEGATIVE) Urine Urobilinogen Negative mg/dL (0.2-1.9) Urine Leukocyte Esterase Moderate (NEGATIVE) Urine RBC 227 /HPF (0-2/HPF) Urine WBC 52 /HPF (0-5/HPF) Urine Squamous Epithelial Cells Few /LPF (NONE-FEW) Urine Transitional Epithelial Cells Few /LPF (NONE-FEW) Urine Bacteria Few /HPF (NONE-FEW) Urine Hyaline Casts Few /LPF (NONE-FEW) Urine Mucus Few /HPF (NONE-FEW) Sodium Level 138 mmol/L (137-145) Potassium Level 4.1 mmol/L (3.5-5.0) Chloride Level 106 mmol/L (98-107) Carbon Dioxide Level 21 mmol/L (22-30) Blood Urea Nitrogen 16 mg/dl (9-21) Creatinine 2.00 mg/dl (0.66-1.25) Glomerular Filtration Rate Calc 33.0 Random Glucose 112 mg/dl (75-110) Lactate 1.4 mmol/L (0.7-2.1) Calcium Level 8.1 mg/dl (8.4-10.2) Chemistry Test 03/28/18 00:00 03/28/18 02:40 03/28/18 04:50 03/28/18 08:20 Troponin I 0.061 ng/ml B-Type Natriuretic Peptide 384 pg/ml (0-100) White Blood Count 11.8 k/uL (4.5-11.0) Red Blood Count 3.18 M/uL (4.00-5.60) Hemoglobin 10.8 g/dL (14.0-18.0) Hematocrit 33.4 % (42.0-52.0) Mean Corpuscular Volume 105.0 fL (80.0-96.0) Mean Corpuscular Hemoglobin 33.8 pg (26.0-33.0) Mean Corpuscular Hemoglobin Concent 32.2 g/dL (32.0-36.0) Red Cell Distribution Width 14.3 % (11.5-14.5) Platelet Count 189 K/uL (150-450) Mean Platelet Volume 8.3 fL (7.2-11.1) Neutrophils (%) (Auto) 88.6 % (39.4-72.5) Lymphocytes (%) (Auto) 2.4 % (17.6-49.6) Monocytes (%) (Auto) 8.0 % (4.1-12.4) Eosinophils (%) (Auto) 0.0 % (0.4-6.7) Basophils (%) (Auto) 1.0 % (0.3-1.4) Nucleated RBC Relative Count (auto) 0.0 /100WBC Neutrophils # (Auto) 10.4 K/uL (2.0-7.4) Lymphocytes # (Auto) 0.3 K/uL (1.3-3.6) Monocytes # (Auto) 0.9 K/uL (0.3-1.0) Eosinophils # (Auto) 0.0 K/uL (0.0-0.5) Basophils # (Auto) 0.1 K/uL (0.0-0.1) Nucleated RBC Absolute Count (auto) 0.00 K/uL Total Bilirubin 0.6 mg/dl (0.2-1.3) Aspartate Amino Transf (AST/SGOT) 22 U/L (0-35) Alanine Aminotransferase (ALT/SGPT) 26 U/L (0-56) Alkaline Phosphatase 49 U/L (0-126) Total Protein 6.6 g/dl (6.3-8.2) Albumin 3.5 g/dl (3.5-5.0) Urine Color Yellow Urine Clarity Slightly-cloudy Urine pH 5.0 pH (4.8-9.5) Urine Specific [place] 1.016 Urine Protein 100 mg/dL (NEGATIVE) Urine Glucose (UA) Negative mg/dL (NEGATIVE) Urine Ketones Negative mg/dL (NEGATIVE) Urine Blood Large (NEGATIVE) Urine Nitrite Negative (NEGATIVE) Urine Bilirubin Negative (NEGATIVE) Urine Urobilinogen Negative mg/dL (0.2-1.9) Urine Leukocyte Esterase Moderate (NEGATIVE) Urine RBC 227 /HPF (0-2/HPF) Urine WBC 52 /HPF (0-5/HPF) Urine Squamous Epithelial Cells Few /LPF (NONE-FEW) Urine Transitional Epithelial Cells Few /LPF (NONE-FEW) Urine Bacteria Few /HPF (NONE-FEW) Urine Hyaline Casts Few /LPF (NONE-FEW) Urine Mucus Few /HPF (NONE-FEW) Glomerular Filtration Rate Calc 33.0 Lactate 1.4 mmol/L (0.7-2.1) Calcium Level 8.1 mg/dl (8.4-10.2) Urinalysis Test 03/28/18 04:50 Urine Color Yellow Urine Clarity Slightly-cloudy Urine pH 5.0 pH (4.8-9.5) Urine Specific [place] 1.016 Urine Protein 100 mg/dL (NEGATIVE) Urine Glucose (UA) Negative mg/dL (NEGATIVE) Urine Ketones Negative mg/dL (NEGATIVE) Urine Blood Large (NEGATIVE) Urine Nitrite Negative (NEGATIVE) Urine Bilirubin Negative (NEGATIVE) Urine Urobilinogen Negative mg/dL (0.2-1.9) Urine Leukocyte Esterase Moderate (NEGATIVE) Urine RBC 227 /HPF (0-2/HPF) Urine WBC 52 /HPF (0-5/HPF) Urine Squamous Epithelial Cells Few /LPF (NONE-FEW) Urine Transitional Epithelial Cells Few /LPF (NONE-FEW) Urine Bacteria Few /HPF (NONE-FEW) Urine Hyaline Casts Few /LPF (NONE-FEW) Urine Mucus Few /HPF (NONE-FEW) (JAVIER FOFANA MD) Microbiology Microbiology Date/Time Source Procedure Growth Status 03/28/18 08:20 Blood Peripheral Draw Blood Culture - Preliminary NO GROWTH SO FAR, SET LATE. REINCUBATED Resulted (JAVIER FOFANA MD) EKG/Imaging EKG Interpretation 12 lead EKG: Rhythm: Sinus tachycardia, rate 127 Apison: normal QRS: normal ST segments: No ST elevation or depression. Nonspecific T-wave changes present (DIONTE LOPEZ MD) ED Course/Re-evaluation Clinical Indication for ER IV: Hydration, IV Access ED Course After the initial evaluation, it was felt that this was likely a blocked catheter with urinary retention. However, bladder scanner with multiple attempts showed zero volume of urine in the bladder. The catheter flushes easily. Because of this, and the low amount of urine in the catheter bag, I felt that this was going to be a renal issue, possibly infection or something from the procedure done the other day. His blood pressure is doing okay and he is a little tachycardic. His lower abdominal pain was though to be secondary to procedure or infectious process in the urine at this time. Labs obtained and IV fluids given, 1000cc normal saline given over an hour as a fluid challenge to see what his urine output would be. Labs show an elevated creatinine to 2.20 from 1.30 two days ago. His GFR has dropped. BUN is normal at 15. After 1 hour, he only had another 25cc of urine output. Rechecked the catheter which still seems to flush easily. Urine was sent for evaluation as well which came back showing red cells and blood, but no real sign of infection. His complete blood count shows a mild elevated white count with a left shift. Mild anemia which seems stable. I called and talked to Dr. Henderson and discussed the case with him. It is not clear what is going on, and we will get a renal ultrasound done and re-evaluate. I talked to the rfid technician. We clamped the catheter to fill the bladder for the ultrasound, but after being clamped for 30minutes he has only had 12-20cc of urine production per the bladder scanner. His blood pressure and pulse have been slowly increasing as well. He is coughing, and is also now very nauseated. He albert d a dose of Zofran earlier which did not help, then another dose of Phenergan 6.25mg IV. Still with dry heaving now. His abdomen seems to be a little more distended as well. Troponin, BNP, Chest x-ray and EKG were added to the evaluation. Chest x-ray came back with severe dilation of the colon with the abdomen seeming to push up against his chest and lung palmer. CT scan of the abdomen and pelvis without contrast was ordered at this point. We are filling the bladder through the catheter to facilitate the renal ultrasound to get a better look at the bladder as well. Blood pressures and pulse elevating, but no medication given at this point until we can tell for sure what is causing the problems we are seeing. Discussed the case with Dr. Fofana at shift change this morning. CT pending, Tro ponin and BNP pending, Ultrasound just getting started at this point. ([facility]) ED Course Mr. Lara was turned over to me at 0700; he is 2 d s/p lithotripsy, r renal stent placement, with post op course complicated by htn for which he was hospitalized an additional day. He was dc'd, but returned this am with increased pain; noted to have new tanesha, htn, tachycardia, and l falnk abd pain, distension. Pending on t/o to me are renal US, CT a/p, rpt bmp, trop/bnp. On re-evaluation, pt with continued abd distension, slight increase in uo. CT/renal us show subcapsular hematoma and adynamic ileus. Will continue iv hydration of note, bnp/trop had been obtained, both elevated into indiscriminate zone; pt does not have acute cp or sob; likely secondary to tanesha. Recommend serial evaluation. I consulted Dr. Ledezma and Janice; they will discuss and pt to be admitted to hospitalist service. HD stable on admission. Decision to Disposition Date: Mar 28, 2018 Decision to Disposition Time: 09:25 (JAVIER FOFANA MD) Depart Departure Latest Vital Signs Vital Signs Date Time Temp Pulse Resp B/P (MAP) Pulse Ox O2 Delivery O2 Flow Rate FiO2 03/28/18 09:57 110 18 199/108 (138) 95 Nasal Cannula 3 03/28/18 08:05 98.3 (JAVIER FOFANA MD) Impression: Primary Impression: Adynamic ileus Additional Impression: Acute kidney injury Condition: Stable Disposition: HOME OR SELF-CARE Problem Qualifiers DIONTE LOPEZ MD Mar 28, 2018 02:02 JAVIER FOFANA MD Mar 28, 2018 09:15
[2018-03-28] MEDS ORDERED: NS(*) 0.9% 1000 ML BAG 1,000 ML IV ONE ×3 (02:30→08:25)
[2018-03-28 02:57] LABS: PLATELET COUNT, AUTOMATED 189 K/uL (150-450)
[2018-03-28] MEDS ORDERED: ONDANSETRON 4 MG/2 ML VIAL IVP ONE (04:50)
[2018-03-28] MEDS ORDERED: PROMETHAZINE 25 MG/ML 1 ML AMP IVP ONE (05:45)
--- NOTE | 2018-03-28 06:43 | EKG ---
FACILITY: [facility] - [place] PATIENT NAME: HARI BLACKWOOD : [id number] MR: [id number] V: [id number] EXAM DATE: ORDERING PHYSICIAN: DIONTE LOPEZ TECHNOLOGIST: GABRIELLE Test Reason : HYPERTENSION Blood Pressure : / mmHG Vent. Rate : 127 BPM Atrial Rate : 127 BPM P-R Int : 142 ms QRS Dur : 074 ms QT Int : 310 ms P-R-T Axes : 070 059 -13 degrees QTc Int : 450 ms Sinus tachycardia Cannot rule out Inferior infarct , age undetermined ST-T wave changes anteriorly worrisome for ischemia Abnormal ECG Confirmed by ALFRED OSHEA ([id number]) on 03/28/2018 8:23:22 AM Referred By: Confirmed By:ALFRED OSHEA
--- NOTE | 2018-03-28 06:50 | RADIOLOGY IMAGING REPORT ---
[place] [facility] [place] José Miguel Lara : 1945 MR: [id number] V: [id number] EXAM DATE: [id number] ORDERING PHYSICIAN: DIONTE LOPEZ TECHNOLOGIST: Location: [facility] Patient: José Miguel Lara : 1945 Visit/Account:[id number] Date of Sevice: 03/28/2018 AP CHEST 03/28/2018 5:59 AM. INDICATION: cough, nausea, elevated blood pressure COMPARISON: 06/22/2017 chest radiograph, CT abdomen and pelvis 03/02/2018. FINDINGS: Lungs are mildly hypoexpanded with bibasilar streaky opacification consistent with atelectasis. No s uspicious consolidation. No pleural effusion or pneumothorax. Heart size is normal. Gaseous disten tion of the colon in the upper abdomen. IMPRESSION: 1. Mild hypoexpansion and atelectasis. 2. Nonspecific gaseous distention of the colon in the upper abdomen. Report Dictated By: Adelso Parsons MD at 03/28/2018 6:42 AM Report E-Signed By: Adelso Parsons MD at 03/28/2018 6:45 AM WSN:[id number]
[2018-03-28] MEDS ORDERED: MORPHINE 4 MG/ML SDV IVP ONE (07:10)
--- NOTE | 2018-03-28 08:19 | RADIOLOGY IMAGING REPORT ---
FACILITY: [facility] PATIENT NAME: José Miguel Lara : 1945 MR: [id number] V: [id number] EXAM DATE: [id number] ORDERING PHYSICIAN: DIONTE LOPEZ TECHNOLOGIST: Location: [facility] Patient: José Miguel Lara : 1945 Visit/Account:[id number] Date of Sevice: 03/28/2018 CT of the abdomen and pelvis without contrast: Indication: Nausea and oliguria. Technique: Helical CT was performed through the abdomen and pelvis without contrast. Multiplanar rec onstructions are reviewed. One of the following dose optimization techniques was utilized in the performance of this exam: Autom ated exposure control; adjustment of the mA and/or kV according to the patient's size; or use of an i terative reconstruction technique. Specific details can be referenced in the facility's radiology CT exam operational policy. Comparison: 03/02/2018 Lower lung palmer: There appears to be some atelectatic consolidation at both lung bases, right great er than left. There is minimal fluid in the pleural spaces. There is extensive atherosclerotic calcif ication in the coronary arteries. Liver: Unremarkable and unchanged. Gallbladder/biliary tree: Multiple opaque calculi are present in the dependent portion of the gallbla dder lumen. The gallbladder does not appear distended or inflamed. The bile ducts are normal in calib er. Pancreas: Atrophic, but otherwise unremarkable. There are no signs of peripancreatic inflammation or fluid. Spleen: Normal in size, shape, and density. Adrenal glands: Within normal limits. Kidneys/urinary bladder: A right ureteral stent is now present. There is no dilatation of the right i ntrarenal collecting structures or right ureter. There is now evidence of significant subcapsular hem orrhage around the right kidney. There are some reactive changes in the perirenal fascia, but there i s no definite evidence of additional retroperitoneal hemorrhage. Multiple calcifications within the r ight kidney appear unchanged. The left kidney appears unchanged. Multiple intrarenal calcifications appear stable. There are no sig ns of obstruction on the left. In addition to the right ureteral stent, a Erazo catheter is now present in the bladder lumen. A smal l amount of air is present in the bladder, most likely related to the catheter placement. The bladder is otherwise unremarkable, as visualized. Intestinal structures: There is diffuse dilatation of multiple small bowel loops and the colon, which represents a change from the prior study. No focal obstructing process or obvious transitional segme nt is identified. The findings suggest adynamic ileus. Pelvis: There is a small amount of ascites fluid in the pelvis. No circumscribed fluid collection is identified. There is no evidence of pelvic soft tissue mass or hemorrhage. Aorta and vascular structures: There are stable atherosclerotic changes in the aorta and iliac arteri es. Ascites or fluid collections: There is a small amount of free fluid in the pelvis. Otherwise unremark able. 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 Ther e are chronic compression deformities in the lower thoracic and mid lumbar spine. There are stable po stoperative changes in the bilateral hips and proximal femurs. No acute skeletal deformity is clearly identified. Impression: There is diffuse dilatation of multiple small bowel loops and the colon, without obvious obstructing process or transitional segment. The pattern suggests adynamic ileus. A subcapsular hematoma is now present in the right kidney. A right ureteral stent appears to be in sa tisfactory position, and there are no signs of obstruction. Multiple intrarenal calcifications appear unchanged. Report Dictated By: Scott Howard MD at 03/28/2018 7:58 AM Report E-Signed By: Scott Howard MD at 03/28/2018 8:15 AM WSN:[id number]
--- NOTE | 2018-03-28 08:27 | RADIOLOGY IMAGING REPORT ---
[place] [facility] [place] NAME: José Miguel Lara : 1945 MR: [id number] V: [id number] EXAM DATE: ORDERING PHYSICIAN: DIONTE LOPEZ TECHNOLOGIST: [place] [facility] [place]: José Miguel Lara : 1945 Visit/Account:[id number] Date of Sevice: 03/28/2018 Ultrasound of the kidneys: Indication: Oliguria. Technique: Routine imaging, with limited Doppler. Comparison: CT scan from earlier the same day. Right kidney: Measures 7.4 x 5.3 x 5.1 cm. There is a hypoechoic region, conforming to the lateral ma rgin of the right kidney, compatible with subcapsular hematoma, measuring approximately 6.1 x 5.2 x 2 .0 cm. Intrarenal calcification is observed, compatible with calculus. The right ureteral stent is no t clearly visualized on this study. There is no dilatation of the collecting structures. The resistiv e indices are elevated. Left kidney: Measures 8.8 x 5.2 x 4.2 cm. There are multiple echogenic foci, compatible with nonobstr ucting calculi. There is no dilatation of the collecting structures. No focal parenchymal or mallet i s identified. The resistive indices are mildly elevated. Urinary bladder: Unremarkable, as visualized. The right ureteral stent and a Erazo catheter are obser nicole within the lumen. Aorta/IVC: Not adequately visualized. Impression: There are echogenic foci in both kidneys, compatible with intrarenal calculi. There is no dilatation of the collecting structures on either side. There is evidence of subcapsular hematoma in the right kidney, as observed on the earlier CT scan. Report Dictated By: Scott Howard MD at 03/28/2018 8:15 AM Report E-Signed By: Scott Howard MD at 03/28/2018 8:22 AM WSN:[id number]
[2018-03-28 11:02] VITALS: BP 183/114
[2018-03-28] MEDS ORDERED: ACETAMINOPHEN 325 MG TAB PO PRN (11:10)
[2018-03-28] MEDS ORDERED: PROMETHAZINE 25 MG/ML 1 ML AMP IVP PRN (11:15)
--- NOTE | 2018-03-28 11:24 | History & Physical ---
History of Present Illness Chief Complaint Abdominal pain and distension with nausea and vomiting History of Present Illness 72yo male with PMHx significant for COPD, SCCa of larynx, recent lithotripsy for nephrolithiasis. He reports significant abdominal distension and pain developing since discharge yesterday following his lithotripsy on 03/27/18. He has had some associated nausea with "dry heaves". He has not been able to eat much, but has tried to take fluids. He states his Erazo cath has had some "leaking". He noted some bloody cath drainage yesterday. He also has felt "chilled", but no obvious fevers. He has not had a BM since before procedure. He has not been passing any flatus as well. He was evaluated in the ER and found to have probable ileus as well as some acute kidney injury. He was recommended for admission. History Problems: (1) Malnutrition Status: Chronic (2) Hip fracture, left Status: Resolved (3) Coronary artery disease Status: Chronic (4) Hypertension Status: Chronic (5) Abnormal chest xray Status: Chronic (6) CKD (chronic kidney disease) Status: Chronic (7) Right wrist fracture Onset Date: ~ 02/2009 Status: Resolved (8) Myocardial infarction Onset Date: ~ 1996 Status: Chronic (9) Hyperlipidemia Status: Chronic (10) Arthritis Status: Chronic (11) History of ulcer disease Status: Chronic (12) Asbestos exposure Status: Chronic (13) Compression fracture Status: Resolved (14) Head and neck cancer Status: Chronic Comment: SCCa of larynx (15) Status post emergency tracheotomy for assistance in breathing Onset Date: ~ 10/2008 Status: Chronic (16) History of vagotomy Onset Date: ~ 10/2008 Status: Chronic (17) Hx of jejunostomy Onset Date: ~ 10/2008 Status: Chronic (18) History of open reduction and internal fixation (ORIF) procedure Onset Date: ~ 12/2008 Status: Chronic (19) S/P ACL repair Status: Chronic (20) H/O elbow surgery Status: Chronic (21) S/P foot surgery, right Status: Resolved Home Meds Active Scripts Ergocalciferol (Vitamin D2) (VITAMIN D2) 50,000 Unit Capsule, 57995 UNIT PO weekly for 120 Days, #12 CAPSULE Prov:JASON BARBOZA [employer], ONC 07/22/17 Folic Acid (FOLIC ACID) 1 Mg Tablet, 1 MG PO QDAY, #90 TAB 3 Refills Prov:JASON BARBOZA Brianna [employer], ONC 06/09/17 Reported Medications Oxybutynin Chloride (DITROPAN XL) 5 Mg Tab.er.24, 5 MG PO QDAY PRN for SPASMS, #10 TAB 03/27/18 Phenazopyridine Hcl (PHENAZOPYRIDINE HCL) 200 Mg Tablet, 200 MG PO TID PRN for SPASMS, #30 TAB 03/27/18 Hydrocodone Bit/Acetaminophen (NORCO 5-325 TABLET) 1 Each Tablet, 1-2 TAB PO Q6H PRN for PAIN, #30 TAB 03/27/18 Vitamin B Complex (B COMPLEX) 1 Each Tablet, 1 EACH PO BID 03/18/18 Acetaminophen 500 Mg Tab (ACETAMINOPHEN EXTRA STRENGTH) 500 Mg Tablet, 500 MG PO Q6-8H PRN for PAIN, TAB 03/18/18 Mirtazapine (MIRTAZAPINE) 15 Mg Tab.rapdis, 15 MG PO QDAY 03/18/18 Aspirin (ASPIRIN) 81 Mg Tab.chew, 81 MG PO QDAY, TAB.CHEW 03/18/18 Simvastatin (SIMVASTATIN) 20 Mg Tablet, 20 MG PO HS, TAB 06/22/17 Allopurinol (ZYLOPRIM) 300 Mg Tablet, 300 MG PO QDAY, TAB 03/29/16 Finasteride (FINASTERIDE) 5 Mg Tablet, 5 MG PO QDAY 04/27/14 Tamsulosin Hcl (Flomax) 0.4 Mg Cap.sr.24h, 0.4 MG PO DAILY 03/14/12 Discontinued Reported Medications Docusate Sodium (COLACE) 100 Mg Capsule, 100 MG PO BID, #30 CAPSULE 03/27/18 Allergies: Coded Allergies: Penicillins (Verified Allergy, Mild, CAN'T REMEMBER, 03/28/18) latex (Verified Allergy, Mild, RASH, 03/28/18) Patient History: FH: cancer AUNT FH: leukemia GRANDFATHER FH: lung cancer FATHER, Onset:68 Hx Smoking: Yes Smoking Status: Former Smoker Exposure to Second Hand Smoke?: Yes Caffeine Intake: Soda Caffeine/Cups Per Day: rarely Hx Alcohol Use: Yes Hx Substance Use Disorder: Yes Social Drug Use: Occasional Social Drugs: Marijuana, LSD Review of Systems Constitutional: Chills; No Fever, No Night Sweats Neurological: Weakness; No Syncope, No Confusion Eyes: No Vision Change, No Loss of Vision ENT: Hearing Loss (chronic) Cardiovascular: No Chest Pain, No Palpitations Respiratory: No Shortness of Breath, No Cough, No Wheezing Gastrointestinal: Nausea, Vomiting; No Diarrhea; Constipation; No Hematemesis, No Hematochezia, No Melena; Abdominal Pain Genitourinary: Other (Erazo cath in place) Exam Vital Signs Vital Signs Date Time Temp Pulse Resp B/P (MAP) Pulse Ox O2 Delivery O2 Flow Rate FiO2 03/28/18 11:12 95 Nasal Cannula 3.0 03/28/18 11:02 97.9 122 20 183/114 (137) General Appearance: Alert, Awake Neuro: No Gross deficits Eyes: PERRLA Neck: Other (Old tracheostomy scar/some atrophic changes secondary to previous radiation therapy) Cardiovascular: Regular Rate and Rhythm Respiratory: Clear to Auscultation Chest: No Tenderness GI: Other (distended/taut/rare BS/some diffuse tenderness but no focal guarding or rebound) : No CVA Tenderness Extremities: Warm, Perfused Integumentary: Generalized Fragile Skin Psych: Alert & Oriented X3 Medical Decision Making Data Points Result Diagram: 03/28/18 0240 03/28/18 0820 Item Value Date Time Urine Color Yellow 03/28/18449 Urine Clarity Slightly-cloudy 03/28/18449 Urine pH 5.0 pH 03/28/18 045 Urine Specific [place] 1.016 03/28/18 045 Urine Protein 100 mg/dL 03/28/18449 Urine Glucose (UA) Negative mg/dL 03/28/18449 Urine Ketones Negative mg/dL 03/28/18 045 Urine Blood Large 03/28/18 045 Urine Nitrite Negative 03/28/18 045 Urine Bilirubin Negative 03/28/18 045 Urine Urobilinogen Negative mg/dL 03/28/18 045 Urine Leukocyte Esterase Moderate H 03/28/18 045 Urine RBC 227 /HPF 03/28/18 0450 Urine WBC 52 /HPF 03/28/18 0450 Urine Squamous Epithelial Cells Few /LPF 03/28/18 0450 Urine Transitional Epithelial Cells Few /LPF 03/28/18 0450 Urine Bacteria Few /HPF 03/28/18 0450 Urine Mucus Few /HPF 03/28/18449 Urine Hyaline Casts Few /LPF 03/28/18449 EKG / Imaging EKG Interpretation PATIENT NAME: JOSÉ MIGUEL BLACKWOOD : [id number] MR: [id number] V: [id number] EXAM DATE: [id number] ORDERING PHYSICIAN: DIONTE LOPEZ TECHNOLOGIST: GABRIELLE Test Reason : HYPERTENSION Blood Pressure : / mmHG Vent. Rate : 127 BPM Atrial Rate : 127 BPM P-R Int : 142 ms QRS Dur : 074 ms QT Int : 310 ms P-R-T Axes : 070 059 -13 degrees QTc Int : 450 ms Sinus tachycardia Cannot rule out Inferior infarct , age undetermined ST-T wave changes anteriorly worrisome for ischemia Abnormal ECG Confirmed by ALFRED OSHEA ([id number]) on 03/28/2018 8:23:22 AM Referred By: Confirmed By:ALFRED OSHEA Imaging PATIENT NAME: José Miguel Blackwood : 1945 MR: [id number] V: [id number] EXAM DATE: [id number] ORDERING PHYSICIAN: DIONTE LOPEZ TECHNOLOGIST: Location: [facility] Patient: José Miguel Blackwood : 1945 Visit/Account:[id number] Date of Sevice: 03/28/2018 CT of the abdomen and pelvis without contrast: Indication: Nausea and oliguria. Technique: Helical CT was performed through the abdomen and pelvis without contrast. Multiplanar reconstructions are reviewed. One of the following dose optimization techniques was utilized in the performance of this exam: Automated exposure control; adjustment of the mA and/or kV according to the patient's size; or use of an iterative reconstruction technique. Specific details can be referenced in the facility's radiology CT exam operational policy. Comparison: 03/02/2018 Lower lung palmer: There appears to be some atelectatic consolidation at both lung bases, right greater than left. There is minimal fluid in the pleural spaces. There is extensive atherosclerotic calcification in the coronary arteries. Liver: Unremarkable and unchanged. Gallbladder/biliary tree: Multiple opaque calculi are present in the dependent portion of the gallbladder lumen. The gallbladder does not appear distended or inflamed. The bile ducts are normal in caliber. Pancreas: Atrophic, but otherwise unremarkable. There are no signs of peripancreatic inflammation or fluid. Spleen: Normal in size, shape, and density. Adrenal glands: Within normal limits. Kidneys/urinary bladder: A right ureteral stent is now present. There is no dilatation of the right intrarenal collecting structures or right ureter. There is now evidence of significant subcapsular hemorrhage around the right kidney. There are some reactive changes in the perirenal fascia, but there is no definite evidence of additional retroperitoneal hemorrhage. Multiple calcifications within the right kidney appear unchanged. The left kidney appears unchanged. Multiple intrarenal calcifications appear stable. There are no signs of obstruction on the left. In addition to the right ureteral stent, a Erazo catheter is now present in the bladder lumen. A small amount of air is present in the bladder, most likely related to the catheter placement. The bladder is otherwise unremarkable, as visualized. Intestinal structures: There is diffuse dilatation of multiple small bowel loops and the colon, which represents a change from the prior study. No focal obstructing process or obvious transitional segment is identified. The findings suggest adynamic ileus. Pelvis: There is a small amount of ascites fluid in the pelvis. No circumscribed fluid collection is identified. There is no evidence of pelvic soft tissue mass or hemorrhage. Aorta and vascular structures: There are stable atherosclerotic changes in the aorta and iliac arteries. Ascites or fluid collections: There is a small amount of free fluid in the pelvis. Otherwise unremarkable. 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 There are chronic compression deformities in the lower thoracic and mid lumbar spine. There are stable postoperative changes in the bilateral hips and proximal femurs. No acute skeletal deformity is clearly identified. Impression: There is diffuse dilatation of multiple small bowel loops and the colon, without obvious obstructing process or transitional segment. The pattern suggests adynamic ileus. A subcapsular hematoma is now present in the right kidney. A right ureteral stent appears to be in satisfactory position, and there are no signs of obstruction. Multiple intrarenal calcifications appear unchanged. Report Dictated By: Scott Howard MD at 03/28/2018 7:58 AM Report E-Signed By: Scott Howard MD at 03/28/2018 8:15 AM WSN:[id number] PATIENT NAME: José Miguel Blackwood : 1945 MR: [id number] V: [id number] EXAM DATE: ORDERING PHYSICIAN: DIONTE JESSICA TECHNOLOGIST: Location: [facility] Patient: José Miguel Blackwood : 1945 Visit/Account:[id number] Date of Sevice: 03/28/2018 AP CHEST 03/28/2018 5:59 AM. INDICATION: cough, nausea, elevated blood pressure COMPARISON: 06/22/2017 chest radiograph, CT abdomen and pelvis 03/02/2018. FINDINGS: Lungs are mildly hypoexpanded with bibasilar streaky opacification consistent with atelectasis. No suspicious consolidation. No pleural effusion or pneumothorax. Heart size is normal. Gaseous distention of the colon in the upper abdomen. IMPRESSION: 1. Mild hypoexpansion and atelectasis. 2. Nonspecific gaseous distention of the colon in the upper abdomen. Report Dictated By: Adelso Parsons MD at 03/28/2018 6:42 AM Report E-Signed By: Adelso Parsons MD at 03/28/2018 6:45 AM WSN:[id number] Assessment and Plan Problems: (1) Adynamic ileus Status: Acute Assessment & Plan: It appears he has an acute ileus following his lithotripsy 2 days ago. Will admit for IV fluids, antiemetics. If not resolving soon or if more symptomatic, will place NG for decompression. Watch closely. (2) Acute kidney injury Status: Acute Assessment & Plan: Probably secondary to recent lithotripsy and possibly some volume depletion. Will give gentle IV fluids, watch output, watch labs. Erazo cath is in place. (3) CKD (chronic kidney disease) Status: Chronic Assessment & Plan: He does have some underlying chronic renal insufficiency. Baseline creatinine is in 1.3-1.4 range. (4) Coronary artery disease Status: Chronic Assessment & Plan: He had troponin drawn in the ER with result slightly elevated. He has not had any CP or dyspnea. The elevation may be due to renal insufficiency. Will re-check in a few hours. 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 Central Venous Access Medical Necessity for Access: IV Access, Medication Administration Copies to: KRISTEN SIERRA DO; ELISHA DOHERTY MD ; Venous Thromboembolism Antithrombotics Is Pt On Any Antithrombotics?: No (renal hematoma ) Exam Sepsis Risk: No Definite Risk LEONILA LITTLE MD Mar 28, 2018 11:24
[2018-03-28] MEDS: MORPHINE 2 MG/ML SYR IVP PRN ×2 (11:31→16:17)
[2018-03-28] MEDS ORDERED: LEVOFLOXACIN/D5W*500 MG/100 ML 100 ML IVPB ONE (12:00)
[2018-03-28] MEDS ORDERED: MORPHINE 2 MG/ML SYR IVP ONE (12:45)
--- NOTE | 2018-03-28 13:22 | RADIOLOGY IMAGING REPORT ---
FACILITY: [facility] [place] PATIENT NAME: José Miguel Lara : 1945 MR: [id number] V: [id number] EXAM DATE: ORDERING PHYSICIAN: LEONILA LITTLE TECHNOLOGIST: Location: [facility] [place] Patient: José Miguel Lara : 1945 Visit/Account:[id number] Date of Sevice: 03/28/2018 Study: CHEST SINGLE AP Indication: Nasogastric tube placement Comparison study: March 28, 2018 Findings: Supine views of the chest and abdomen demonstrates the presence of a nasogastric tube. The tip of the catheter is at the gastroesophageal junction. The catheter should be advanced 15 cm to ens ure that the proximal sidehole is within the stomach. There is no significant chest abnormality identified. There is gas throughout the large bowel and sma ll bowel. This likely represents a pseudoobstruction. There is a right ureteral stent present. IMPRESSION: Nasogastric tube present. The tip the catheter is at the gastroesophageal junction. Report Dictated By: Gerson Reyna at 03/28/2018 1:16 PM Report E-Signed By: Gerson Reyna at 03/28/2018 1:18 PM WSN:[id number]
[2018-03-28 15:07] VITALS: BP 163/102
[2018-03-28] MEDS: ACETAMINOPHEN(*)1000 MG/100 ML 100 ML IVPB SCH ×2 (18:27→23:26)
[2018-03-28] MEDS: NS(*) 0.9% 1000 ML BAG 1,000 ML IV PRN (18:31)
--- NOTE | 2018-03-28 18:32 | General Surgery Consultation ---
History of Present Illness Requesting Physician Darien Henderson Reason for Consult Ileus Chief Complaint abdominal distension History of Present Illness This 72 year old male was admitted with abdominal distension and vomiting one day following lithotripsy and ureteral stent placement for nephrolithiasis. He had a CT scan done that showed distended small and large bowel and a right subcapsular hematoma right kidney. He had a NG tube placed. He has been receiving morphine for his chronic back and neck pain. He denies passing flatus or BM's. History Problems: (1) Status post emergency tracheotomy for assistance in breathing Onset Date: ~ 10/2008 Status: Chronic (2) History of vagotomy * Optional Permanent Comment*: and pyloroplasty for posterior duodenal ulcer with erosion into the gastroduodenal artery Last Edited By: Nat Rabago on Apr 26, 2014 10:58 Onset Date: ~ 10/2008 Status: Chronic (3) Hx of jejunostomy Onset Date: ~ 10/2008 Status: Chronic (4) History of open reduction and internal fixation (ORIF) procedure * Optional Permanent Comment*: right femoral neck fracture Last Edited By: Nat Rabago on Apr 26, 2014 11:01 Onset Date: ~ 12/2008 Status: Chronic (5) S/P ACL repair Status: Chronic (6) H/O elbow surgery Status: Chronic (7) CKD (chronic kidney disease) Status: Chronic (8) Hypertension Status: Chronic (9) Coronary artery disease Status: Chronic (10) Myocardial infarction * Optional Permanent Comment*: with single coronary artery stent placement Last Edited By: Nat Rabago on Apr 26, 2014 10:57 Onset Date: 1996 Status: Chronic (11) Hyperlipidemia Status: Chronic (12) History of ulcer disease Status: Chronic (13) Head and neck cancer Status: Chronic (14) Arthritis Status: Chronic Home Meds Active Scripts Ergocalciferol (Vitamin D2) (VITAMIN D2) 50,000 Unit Capsule, 60591 UNIT PO weekly for 120 Days, #12 CAPSULE Prov:JASON BARBOZA CYTOPATHOLOGIST-BC, ONC 07/22/17 Folic Acid (FOLIC ACID) 1 Mg Tablet, 1 MG PO QDAY, #90 TAB 3 Refills Prov:JASON BARBOZA CYTOPATHOLOGIST-BC, ONC 06/09/17 Reported Medications Oxybutynin Chloride (DITROPAN XL) 5 Mg Tab.er.24, 5 MG PO QDAY PRN for SPASMS, #10 TAB 03/27/18 Phenazopyridine Hcl (PHENAZOPYRIDINE HCL) 200 Mg Tablet, 200 MG PO TID PRN for SPASMS, #30 TAB 03/27/18 Hydrocodone Bit/Acetaminophen (NORCO 5-325 TABLET) 1 Each Tablet, 1-2 TAB PO Q6H PRN for PAIN, #30 TAB 03/27/18 Vitamin B Complex (B COMPLEX) 1 Each Tablet, 1 EACH PO BID 03/18/18 Acetaminophen 500 Mg Tab (ACETAMINOPHEN EXTRA STRENGTH) 500 Mg Tablet, 500 MG PO Q6-8H PRN for PAIN, TAB 03/18/18 Mirtazapine (MIRTAZAPINE) 15 Mg Tab.rapdis, 15 MG PO QDAY 03/18/18 Aspirin (ASPIRIN) 81 Mg Tab.chew, 81 MG PO QDAY, TAB.CHEW 03/18/18 Simvastatin (SIMVASTATIN) 20 Mg Tablet, 20 MG PO HS, TAB 06/22/17 Allopurinol (ZYLOPRIM) 300 Mg Tablet, 300 MG PO QDAY, TAB 03/29/16 Finasteride (FINASTERIDE) 5 Mg Tablet, 5 MG PO QDAY 04/27/14 Tamsulosin Hcl (Flomax) 0.4 Mg Cap.sr.24h, 0.4 MG PO DAILY 03/14/12 Discontinued Reported Medications Docusate Sodium (COLACE) 100 Mg Capsule, 100 MG PO BID, #30 CAPSULE 03/27/18 Allergies: Coded Allergies: Penicillins (Verified Allergy, Mild, CAN'T REMEMBER, 03/28/18) latex (Verified Allergy, Mild, RASH, 03/28/18) Family History: FH: cancer AUNT FH: leukemia GRANDFATHER FH: lung cancer FATHER, Onset:68 Review of Systems Constitutional: Weight Loss; No Fever, No Chills, No Night Sweats ENT: Other (hx throat cancer) Respiratory: Shortness of Breath Gastrointestinal: Nausea, Constipation, Abdominal Pain Musculoskeletal: Impaired Mobility Psychiatric: Depression Exam Vital Signs Vital Signs Date Time Temp Pulse Resp B/P (MAP) Pulse Ox O2 Delivery O2 Flow Rate FiO2 03/28/18 15:07 98.4 108 20 163/102 (122) 97 Nasal Cannula 3.0 General Appearance: Alert, Awake, No Acute Distress, Afebrile Neuro: No Gross deficits ENT: Moist Mucous Membranes Cardiovascular: Regular Rate and Rhythm Respiratory: No Respiratory Distress GI: Other (Abdomen is markedly distended, quiet, mild generalized tenderness, no peritoneal signs) Extremities: Soft and Non Tender Psych: Alert & Oriented X3, Appropriate Mood & Affect Medical Decision Making Data Points Result Diagram: 03/28/18 0240 03/28/18 0820 Assessment and Plan Problems: (1) Adynamic ileus Status: Acute Assessment & Plan: 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 I discussed with him the possible treatment options. I have recommended that we continue NGT suction and NPO, to discontinue narcotics as these medications exacerbate the situation, trial of soap suds enemas, mobilization, repeat labs and abdominal radiographs in the am. Due to his cardiac history I am reluctant to consider Neostigmine. If this progresses or does not improve then attempt at colonoscopic decompression may be indicated. Patient is in agreement with this plan. I will order IV Tylenol and DC morphine. Central Venous Access Medical Necessity for Access: IV Access, Medication Administration Time Spent: > 30 min Venous Thromboembolism Antithrombotics Is Pt On Any Antithrombotics?: No (renal hematoma ) SOCORRO JAQUEZ MD Mar 28, 2018 18:32
[2018-03-28 19:55] VITALS: BP 165/101
--- NOTE | 2018-03-28 22:18 | CONSULTATION ---
EVENT DATE: March 28, 2018 REASON FOR CONSULTATION Ileus with right subcapsular renal hematoma. HISTORY OF PRESENT ILLNESS Patient is a 72-year-old white male who was admitted to [facility] earlier today with the above findings. His history is significant for undergoing right stent placement, followed by extracorporeal shock wave lithotripsy on the of this month. He was kept overnight for continuous bladder irrigation and was discharged home yesterday afternoon. However, he presented to the Emergency Room in the early hours of the with abdominal distention and a decreased urine output from his Erazo. CT scan revealed dilated small and large bowel and rectum with air in the rectum. He also was noted to have a [id number] right subcapsular hematoma. His stent was in good position. He had no hydronephrosis in either kidney. The patient's creatinine was originally 2.2, which decreased to 2 after some hydration. Since admission, he has had minimally to adequate urine output at approximately 20 to 30 mL per hour. PHYSICAL EXAMINATION VITAL SIGNS: He has a T-max of 98.4, heart rate of 108. GENERAL: Thin, white male in no acute distress. HEENT: He has a nasogastric tube in place during ileus suction. ABDOMINAL: Distended, tympanitic abdomen with no peritoneal signs. He had hypoactive bowel sounds. GENITOURINARY: He has a Erazo catheter in place draining clear urine that feels to be somewhat concentrated in appearance. LABORATORY DATA White count of 11.8. He has a creatinine of 2, hematocrit of 33. ASSESSMENT A 72-year-old white male who has what appears to be a functional ileus secondary to moderate right subcapsular hematoma, status post extracorporeal shock wave lithotripsy and stent placement. Currently, he is n.p.o. with nasogastric tube and on intravenous fluids. His colon is significantly dilated, but with air down to the rectum, this is a functional issue and hopefully will resolve conservative treatment. RECOMMENDATIONS I have asked General Surgery to evaluate the patient and provide any other recommendations at this point. We will follow his urine output and labs and continue with the current plan. JEFFREY
[2018-03-29] VITALS (7 sets, daily range): BP systolic 121–188; BP diastolic 73–110
[2018-03-29] MEDS: NS(*) 0.9% 1000 ML BAG 1,000 ML IV PRN ×2 (03:21→19:42)
[2018-03-29] MEDS: ACETAMINOPHEN(*)1000 MG/100 ML 100 ML IVPB SCH ×4 (05:22→23:18)
[2018-03-29 06:24] LABS: PLATELET COUNT, AUTOMATED 186 K/uL (150-450)
--- NOTE | 2018-03-29 09:12 | General Surgery Progress Note ---
Subjective Progress Notes Subjective Some relief with enema, back pain reasonably improved with IV Tylenol. Physical Exam Vital Signs Date Time Temp Pulse Resp B/P (MAP) Pulse Ox O2 Delivery O2 Flow Rate FiO2 03/29/18 07:30 91 Nasal Cannula 1.0 03/29/18 07:21 97.7 108 20 188/110 (136) Intake and Output 03/29/18 06:59 Intake Total 715 ml Output Total 150 ml Balance 565 ml Intake Oral 140 ml IV Total 575 ml Output Urine Total 150 ml General Appearance: Alert, Awake, No Acute Distress, Afebrile Neuro: No Gross deficits ENT: Moist Mucous Membranes Cardiovascular: Regular Rate and Rhythm Respiratory: No Respiratory Distress GI: Other (Abdomen still distended, but slightly less so this morning, no significant tenderness, bowel sounds are present today.) Extremities: Soft and Non Tender Psych: Alert & Oriented X3, Appropriate Mood & Affect Result Diagram: 03/29/1851703/29/18517 Assessment and Plan Problems: (1) Adynamic ileus Status: Acute Assessment & Plan: 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 I discussed with him the possible treatment options. I have recommended that we continue NGT suction and NPO, to discontinue narcotics as these medications exacerbate the situation, trial of soap suds enemas, mobilization, repeat labs and abdominal radiographs in the am. Due to his cardiac history I am reluctant to consider Neostigmine. If this progresses or does not improve then attempt at colonoscopic decompression may be indicated. Patient is in agreement with this plan. I will order IV Tylenol and DC morphine. 03/29/2018: Appears slightly improved this am, Abdominal radiographs still pending this am, Will continue with enemas, continue with no narcotics, encouraged to ambulate, check KUB again in am. Central Venous Access Medical Necessity for Access: IV Access, Medication Administration Exam Sepsis Risk: No Definite Risk SOCORRO JAQUEZ MD Mar 29, 2018 09:12
[2018-03-29] MEDS: hydrALAZINE HCL 20 MG/ML VIAL IVP PRN ×2 (09:16→19:42)
[2018-03-29] MEDS ORDERED: LEVOFLOXACIN/D5W 250 MG/50 ML 50 ML IVPB SCH (12:30)
--- NOTE | 2018-03-29 12:39 | Hospitalist Progress Note ---
Subjective Progress Notes Subjective 72M admitted for ileus and abdominal distension. RAISSA overnight, conintues to have no flatus or BM. NG tube to LIWS. Patient Complains of: Gastrointestinal: No Flatus, No Bowel Movement Physical Exam Vital Signs Date Time Temp Pulse Resp B/P (MAP) Pulse Ox O2 Delivery O2 Flow Rate FiO2 03/29/18 12:07 97.6 117 18 121/73 (89) 92 Nasal Cannula 2.0 Intake and Output 03/29/18 06:59 Intake Total 715 ml Output Total 150 ml Balance 565 ml Intake Oral 140 ml IV Total 575 ml Output Urine Total 150 ml General Appearance: Alert, Awake, No Acute Distress Neuro: No Gross deficits Eyes: PERRLA ENT: Normal Neck: No Masses Cardiovascular: Normal Rhythm & Peripheral Pulses Respiratory: No Respiratory Distress GI: Other (Distended, tympanic. + bowel sounds.) Result Diagram: 03/29/1851703/29/18517 Assessment and Plan Problems: (1) Adynamic ileus Status: Acute Assessment & Plan: It appears he has an acute ileus following his lithotripsy 2 days ago. Will admit for IV fluids, antiemetics. Surgery consulted to help manage, NG tube in place to LIWS. (2) Zgdce-es-zogvjpf kidney injury Assessment & Plan: Baseline Cr 1.4 up to 2.2 prior to admission. SCOTT probably secondary to recent lithotripsy and possibly some volume depletion. IV fluids while NPO. Erazo cath is in place, monitor UOP. (3) Coronary artery disease Status: Chronic Assessment & Plan: He had troponin drawn in the ER with result slightly elevated. He has not had any CP or dyspnea. The elevation may be due to renal insufficiency. Will re-check in a few hours. 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 Central Venous Access Medical Necessity for Access: IV Access, Medication Administration Exam Sepsis Risk: No Definite Risk KENYON SALAS BALDERAS DO Mar 29, 2018 12:39
--- NOTE | 2018-03-29 13:12 | Medical Nutrition Therapy ---
Nutrition Anthropometrics Height (Inches): 66 Weight (Pounds): 148 Weight (Calculated Kilograms): 67.160 BMI: 23.8 Josué Nutrition Score: Probably Inadequate Josué Nutrition Risk Score: 17 Dietary Referral Nutrition Risk Factors: Diff. Swallowing Nutrition Risk Comment: Removed part of stomach Physical Findings Physical Appearance: WNR Skin Appearance Skin Appearance: Edema Edema Location Modifier: Edema Location: Type of Edema: Degree of Edema: Gastrointestinal Symptoms GI Symtoms: Nausea, Change in Bowel Pattern Tube Present: NG Bowel Sounds: Recent Bowel Pattern: Stool Characteristics: Nutrition/Food History No Significant Nutr. HX Nutritional Diagnosis Nutritional Risk Acuity 1: Acute/ES Renal, Ileus Nutritional Risk Acuity 2: Swallowing Problem Nutritional Risk Acuity 3: Nausea, Cancer Past Medical History: HTN, CKD-III, CAD , Nephrolithiasis, PUD, Dyslipidemia, Osteoarthritis, Gout and Throat Cancer HX of [place], Hyperlipidemia, COPD, 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 ilius AEB documented reports of abdominal N/V and diagnosis of adynamic ileus from CT. Energy Requirement: 2049 ([place]-St Jeor: Actual BW X 1.5) Protein Requirement: 67 (Actual BW Kg X 1.0) Fluid Requirement: 2049 Diet Type: NPO (Nothing by Mouth) Nutrition Intervention: Incr diet as tolerated Nutrition Monitoring & Eval Nutrition Goals: Eat 75-100% Meal RD Patient Assessment Time: [address] Assessment Type: RD Assessment Patient Nutrition Acuity: 1-High Follow Up Date: Mar 30, 2018 Nutritional Comment: 03/29/18 Pt admitted for adynamic ileus post lithotripsy. Low H/H, Alb 3.0, Ca+ 8.1, Fe 27. Pt NPO d/t ileus. Follow clinical progression, diet changes, labs, etc. -BECKA CARLSON Mar 29, 2018 13:12
--- NOTE | 2018-03-29 14:49 | RADIOLOGY IMAGING REPORT ---
[place] [facility] [place] NAME: José Miguel Lara : 1945 MR: [id number] V: [id number] EXAM DATE: ORDERING PHYSICIAN: LEONILA LITTLE TECHNOLOGIST: Location: [facility] - [place] Patient: José Miguel Lara : 1945 Visit/Account:[id number] Date of Sevice: 03/29/2018 Examination: ABDOMEN AP AND ERECT/DECUB Comparison: 01/26/2017. History: Weakness. Ileus. Findings: There is diffuse gaseous distention of the small bowel and colon. Minimal intracolonic stoo l. No air-fluid levels. No pneumoperitoneum. An enteric tube appears to extend into the proximal stomach. A right-sided ureteral stent is present. Bilateral nephrolithiasis. Lumbar dextroscoliosis. Iliac atherosclerosis. Bilateral proximal femur internal fixation. Lung base atelectasis. IMPRESSION: 1. Diffuse gaseous distention of the small bowel and colon compatible with the history of an ileus. 2. Nephrolithiasis with a right ureteral stent. Report Dictated By: Cheikh Muñoz MD at 03/29/2018 2:40 PM Report E-Signed By: Cheikh Muñoz MD at 03/29/2018 2:45 PM WSN:[id number]
[2018-03-30] MEDS: NS(*) 0.9% 1000 ML BAG 1,000 ML IV PRN (05:46)
[2018-03-30] MEDS: ACETAMINOPHEN(*)1000 MG/100 ML 100 ML IVPB SCH ×3 (05:47→18:14)
[2018-03-30 05:48] LABS: PLATELET COUNT, AUTOMATED 193 K/uL (150-450)
[2018-03-30] MEDS: hydrALAZINE HCL 20 MG/ML VIAL IVP PRN (06:17)
[2018-03-30 07:08] VITALS: BP 141/71
--- NOTE | 2018-03-30 07:10 | General Surgery Progress Note ---
Subjective Progress Notes Subjective Feeling better, passing flatus now. 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 I discussed with him the possible treatment options. I have recommended that we continue NGT suction and NPO, to discontinue narcotics as these medications exacerbate the situation, trial of soap suds enemas, mobilization, repeat labs and abdominal radiographs in the am. Due to his cardiac history I am reluctant to consider Neostigmine. If this progresses or does not improve then attempt at colonoscopic decompression may be indicated. Patient is in agreement with this plan. I will order IV Tylenol and DC morphine. 03/29/2018: Appears slightly improved this am, Abdominal radiographs still pending this am, Will continue with enemas, continue with no narcotics, encouraged to ambulate, check KUB again in am. 03/30/2018: Continues to slowly resolve, passing flatus. radiographs yesterday showed significant dilation of SB and colon, Radiographs today still pending. Would continue NG suction and administer enema again this am. Central Venous Access Medical Necessity for Access: IV Access, Medication Administration Exam Sepsis Risk: No Definite Risk SOCORRO JAQUEZ MD Mar 30, 2018 07:10
--- NOTE | 2018-03-30 08:59 | EKG ---
FACILITY: [facility] PATIENT NAME: HARI BLACKWOOD : [id number] MR: [id number] V: [id number] EXAM DATE: ORDERING PHYSICIAN: NAT ALEJO TECHNOLOGIST: LIV Dlaton Reason : TACHYCARDIA Blood Pressure : / mmHG Vent. Rate : 116 BPM Atrial Rate : 116 BPM P-R Int : 124 ms QRS Dur : 090 ms QT Int : 332 ms P-R-T Axes : 089 095 029 degrees QTc Int : 461 ms Sinus tachycardia Otherwise normal ECG When compared with ECG of 28-MAR-2018 06:22, No significant change was found Confirmed by HAMILTON ORTA ([id number]) on 03/30/2018 4:45:47 PM Referred By: SAPNA Confirmed By:HAMILTON ORTA
[2018-03-30] MEDS ORDERED: INFLUENZA VIRUS VAC 0.5ML SYR IM ONLY ONE (09:00)
[2018-03-30] MEDS: D5 1/2 NS(*) 1000 ML BAG 1,000 ML IV PRN (09:44)
--- NOTE | 2018-03-30 10:18 | RADIOLOGY IMAGING REPORT ---
FACILITY: [facility] PATIENT NAME: José Miguel Lara : 1945 MR: [id number] V: [id number] EXAM DATE: [id number] ORDERING PHYSICIAN: NAT ALEJO TECHNOLOGIST: Location: [facility] - [place] Patient: José Miguel Lara : 1945 Visit/Account:[id number] Date of Sevice: 03/30/2018 Exam type: CHEST SINGLE AP History: SOB, Increased oxygen use, previous smoker, history of esophageal cancer Comparison: March 28, 2018. Findings: There is elevation of the right hemidiaphragm slightly increased when compared the prior study. Line ar stranding the right lung base is likely related to platelike atelectasis. Suggestion of several n odular densities medial aspect the right lung base not definitively appreciated on the prior study. Left lung appears relatively well aerated. The cardiac silhouette is normal in size. There is an NG /OG tube in place the distal tip projects over the left upper quadrant of the abdomen. There is marked gaseous distention of large and small bowel similar to the prior study IMPRESSION: 1. Increasing elevation of the right hemidiaphragm with the linear stranding the right lung base lik addi representing platelike atelectasis NG tube in place the distal tip projecting over the left upper quadrant abdomen Marked gaseous distention of large and small bowel. A similar finding was present on the prior study although depending upon the clinical concern an abdomen series may be helpful Report Dictated By: Agnes Escobar MD at 03/30/2018 10:12 AM Report E-Signed By: Agnes Escobar MD at 03/30/2018 10:15 AM [id number]
[2018-03-30 10:25] VITALS: BP 158/83
[2018-03-30] MEDS: METOPROLOL TART 5 MG/5 ML VIAL IVP SCH ×3 (10:30→22:07)
--- NOTE | 2018-03-30 11:33 | Hospitalist Progress Note ---
Subjective Progress Notes Subjective He has some tachycardia today, feels SOB. Patient Complains of: Cardiovascular: No: Chest Pain Respiratory: Shortness of Breath Physical Exam Vital Signs Date Time Temp Pulse Resp B/P (MAP) Pulse Ox O2 Delivery O2 Flow Rate FiO2 03/30/18 10:25 98.3 116 20 158/83 (108) 93 Nasal Cannula 2.0 Intake and Output 03/30/18 00:59 Intake Total 350 ml Output Total 650 ml Balance -300 ml Intake Oral 0 ml IV Total 350 ml Output Urine Total 250 ml Gastric Drainage Total 400 ml General Appearance: Alert, Awake, No Acute Distress, Afebrile Neuro: No Gross deficits Cardiovascular: Regular Rate and Rhythm Respiratory: No Respiratory Distress, Clear to Auscultation GI: Other (distended abdomen, hard ) Extremities: Warm, Perfused; No Edema Psych: Alert & Oriented X3, Appropriate Mood & Affect Result Diagram: 03/30/1851003/30/18510 Assessment and Plan Problems: (1) Adynamic ileus Status: Acute Assessment & Plan: It appears he has an acute ileus following his lithotripsy 03/30/18. He was admitted IV fluids, antiemetics. Surgery consulted to help manage, NG tube in place. (2) Jfqnt-ur-gunxbyp kidney injury Assessment & Plan: Baseline Cr 1.4 up to 2.2 prior to admission. SCOTT probably secondary to recent lithotripsy and possibly some volume depletion. IV fluids while NPO. Erazo cath is in place, monitor UOP. (3) Coronary artery disease Status: Chronic Assessment & Plan: He had troponin drawn in the ER with result slightly elevated. He has not had any CP. The elevation may be due to renal insufficiency. 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 (5) Dyspnea Status: Acute Assessment & Plan: He did have complaints of SOB this morning. His abdomen is very distended, which could be contributing to his SOB. Chest x-ray done this morning suggests some atelectasis and increased elevation of the hemidiaphragm (from abdomen). He was encouraged to use IS. Central Venous Access Medical Necessity for Access: IV Access, Medication Administration Exam Sepsis Risk: Severe Sepsis Risk NAT ALEJOP Mar 30, 2018 11:32
[2018-03-30 15:31] VITALS: BP 144/80
--- NOTE | 2018-03-30 16:24 | Medical Nutrition Therapy ---
Nutrition Anthropometrics Height (Inches): 78 (pt is 6'6") Weight (Pounds): 148 Weight (Calculated Kilograms): 67.160 BMI: 17.1 Josué Nutrition Score: Probably Inadequate Josué Nutrition Risk Score: 16 Dietary Referral Nutrition Risk Factors: Diff. Swallowing Nutrition Risk Comment: Removed part of stomach Physical Findings Physical Appearance: Underweight BMI<19 (pt is underwt but is within his usual range) Skin Appearance Skin Appearance: Edema Edema Location Modifier: Edema Location: Type of Edema: Degree of Edema: Gastrointestinal Symptoms GI Symtoms: Change in Bowel Pattern Tube Present: NG Bowel Sounds: Recent Bowel Pattern: Stool Characteristics: Nutritional Diagnosis Nutritional Risk Acuity 1: Acute/ES Renal, Ileus Nutritional Risk Acuity 2: Swallowing Problem Nutritional Risk Acuity 3: Nausea, Cancer Past Medical History: HTN, CKD-III, CAD , Nephrolithiasis, PUD, Dyslipidemia, Osteoarthritis, Gout and Throat Cancer HX of [place], Hyperlipidemia, COPD, 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 ilius AEB documented reports of abdominal N/V and diagnosis of adynamic ileus from CT. Energy Requirement: 2049 ([place]-St Jeor: Actual BW X 1.5) Protein Requirement: 67 (Actual BW Kg X 1.0) Fluid Requirement: 2049 Diet Type: NPO (Nothing by Mouth) Nutrition Intervention: Incr diet as tolerated Nutrition Monitoring & Eval Nutrition Goals: Eat 75-100% Meal RD Patient Assessment Time: [address] Assessment Type: RD Re-Assessment Patient Nutrition Acuity: 1-High Follow Up Date: Apr 02, 2018 Nutritional Comment: 03/29/18 Pt admitted for adynamic ileus post lithotripsy. Low H/H, Alb 3.0, Ca+ 8.1, Fe 27. Pt NPO d/t ileus. Follow clinical progression, diet changes, labs, etc. -DRT 03/30 Pt cont NPO for ileus. Recommend nutr support. Pt is underwt but is within his usual wt and is up from previous admit. BUN 26, creatinine 2.1, Alb 2.8. Will cont to monitor. TAMI BACK Mar 30, 2018 16:24
[2018-03-30 19:09] VITALS: BP 151/85
[2018-03-30 22:11] VITALS: BP 164/84
[2018-03-30 23:17] VITALS: BP 162/82
[2018-03-31] VITALS (7 sets, daily range): BP systolic 155–182; BP diastolic 90–100
[2018-03-31] MEDS: ACETAMINOPHEN(*)1000 MG/100 ML 100 ML IVPB SCH ×5 (00:06→23:52)
[2018-03-31] MEDS: D5 1/2 NS(*) 1000 ML BAG 1,000 ML IV PRN ×2 (03:47→21:08)
[2018-03-31] MEDS: METOPROLOL TART 5 MG/5 ML VIAL IVP SCH ×4 (03:47→22:20)
[2018-03-31 06:10] LABS: PLATELET COUNT, AUTOMATED 202 K/uL (150-450)
--- NOTE | 2018-03-31 09:55 | General Surgery Progress Note ---
Subjective Progress Notes Subjective feeling much better multiple bowel movements soft on exam vitals and labs ok Physical Exam Vital Signs Date Time Temp Pulse Resp B/P (MAP) Pulse Ox O2 Delivery O2 Flow Rate FiO2 03/31/18 09:47 80 03/31/18 07:14 98.3 90 16 163/96 (118) Nasal Cannula 1.0 Intake and Output 03/31/18 07:00 Intake Total 300 ml Output Total 1100 ml Balance -800 ml Intake Oral 100 ml IV Total 200 ml Output Urine Total 850 ml Gastric Drainage Total 250 ml # Voids 0 # Bowel Movements 3 General Appearance: Alert, Awake, No Acute Distress Eyes: PERRLA ENT: Moist Mucous Membranes Cardiovascular: Normal Rhythm & Peripheral Pulses Respiratory: No Respiratory Distress GI: Other (soft, distended, no tenderness) Psych: Alert & Oriented X3 Result Diagram: 03/31/1852103/31/18521 Assessment and Plan Problems: (1) Adynamic ileus Status: Acute Assessment & Plan: 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 I discussed with him the possible treatment options. I have recommended that we continue NGT suction and NPO, to discontinue narcotics as these medications exacerbate the situation, trial of soap suds enemas, mobilization, repeat labs and abdominal radiographs in the am. Due to his cardiac history I am reluctant to consider Neostigmine. If this progresses or does not improve then attempt at colonoscopic decompression may be indicated. Patient is in agreement with this plan. I will order IV Tylenol and DC morphine. 03/29/2018: Appears slightly improved this am, Abdominal radiographs still pending this am, Will continue with enemas, continue with no narcotics, encouraged to ambulate, check KUB again in am. 03/30/2018: Continues to slowly resolve, passing flatus. radiographs yesterday showed significant dilation of SB and colon, Radiographs today still pending. Would continue NG suction and administer enema again this am. 03/31/2018: feeling better. passing flatus and having multiple bowel movements. Ordered abd series to evaluate for resolution of colonic distension. Maintain NGT today, will plan on removing later today or tomorrow. No need for colonic decompression. Hold all narcotics. Central Venous Access Medical Necessity for Access: IV Access, Medication Administration Exam Sepsis Risk: No Definite Risk ENRIQUETA ETIENNE MD Mar 31, 2018 09:55
--- NOTE | 2018-03-31 10:10 | RADIOLOGY IMAGING REPORT ---
FACILITY: [facility] - [place] PATIENT NAME: José Miguel Lara : 1945 MR: [id number] V: [id number] EXAM DATE: ORDERING PHYSICIAN: ENRIQUETA ETIENNE TECHNOLOGIST: Location: [facility] Patient: José Miguel Lara : 1945 Visit/Account:[id number] Date of Sevice: 03/31/2018 Exam type: ACUTE ABDOMEN SERIES 3 VIEW History: ileus Comparison: Abdomen series March 29, 2018 and single view chest March 30, 2018. Findings: There is marked gaseous distention of large and small bowel with air-fluid level similar to the prior study consistent with history of an ileus. There is only a small amount distal colonic gas identifi ed. NG tube tip projects over the left upper quadrant of abdomen. This right ureteral stent and mul tiple calcifications projecting over the right renal shadow. There are extensive vascular calcificat ions throughout the abdomen and pelvis and upper thighs. There are postsurgical changes of both hip joints There is elevation right hemidiaphragm similar to the prior study. There is slight improvement of th e right basilar atelectasis. Cardiac silhouette is unchanged IMPRESSION: 1. Marked gaseous distention of large and small bowel with paucity of gas in the distal colon consis tent with the history of ileus Slight improvement of the right basilar atelectasis although persistent elevation of the right hemidi aphragm Report Dictated By: Agnes Escobar MD at 03/31/2018 10:00 AM Report E-Signed By: Agnes Escobar MD at 03/31/2018 10:07 AM WSN:[email or web address]
--- NOTE | 2018-03-31 11:05 | Hospitalist Progress Note ---
Subjective Progress Notes Subjective He reports much improvement in symptoms today. He has had a few small bowel movements. Patient Complains of: Cardiovascular: No: Chest Pain Respiratory: No: Shortness of Breath Physical Exam Vital Signs Date Time Temp Pulse Resp B/P (MAP) Pulse Ox O2 Delivery O2 Flow Rate FiO2 03/31/18 10:15 98.2 101 20 159/90 (113) 92 Nasal Cannula 1.0 Intake and Output 03/31/18 07:00 Intake Total 300 ml Output Total 1100 ml Balance -800 ml Intake Oral 100 ml IV Total 200 ml Output Urine Total 850 ml Gastric Drainage Total 250 ml # Voids 0 # Bowel Movements 3 General Appearance: Alert, Awake, No Acute Distress, Afebrile Neuro: No Gross deficits Cardiovascular: Regular Rate and Rhythm Respiratory: No Respiratory Distress, Clear to Auscultation GI: Soft and Non-Tender Extremities: Warm, Perfused; No Edema Psych: Alert & Oriented X3, Appropriate Mood & Affect Result Diagram: 03/31/1852103/31/18521 Assessment and Plan Problems: (1) Dyspnea Status: Acute Assessment & Plan: He did have complaints of SOB 03/30. His abdomen was very distended, which could be contributing to his SOB. Chest x-ray done suggests some atelectasis and increased elevation of the hemidiaphragm (from abdomen). He was encouraged to use IS. (2) Adynamic ileus Status: Acute Assessment & Plan: It appears he has an acute ileus following his lithotripsy 03/30/18. He was admitted IV fluids, antiemetics. Surgery consulted to help manage, NG tube in place. (3) Vcmvs-af-zhiuzrc kidney injury Assessment & Plan: Baseline Cr 1.4 up to 2.2 prior to admission. SCOTT probably secondary to recent lithotripsy and possibly some volume depletion. IV fluids while NPO. Erazo cath is in place, monitor UOP. His creatinine did decrease to 2.0 this morning. (4) Coronary artery disease Status: Chronic Assessment & Plan: He had troponin drawn in the ER with result slightly elevated. He has not had any CP. The elevation may be due to renal insufficiency. 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 (6) ATELECTASIS Status: Acute Assessment & Plan: He did have complaints of SOB 03/30. His abdomen was very distended, which could have been contributing to his SOB. Chest x-ray done suggested some atelectasis and increased elevation of the hemidiaphragm (from a bdomen). He was encouraged to use IS, which has resolved symptoms. Central Venous Access Medical Necessity for Access: IV Access, Medication Administration Exam Sepsis Risk: No Definite Risk NAT ALEJO [facility] Mar 31, 2018 11:05
[2018-04-01] MEDS: METOPROLOL TART 5 MG/5 ML VIAL IVP SCH (03:47)
[2018-04-01 03:49] VITALS: BP 165/87
[2018-04-01] MEDS: ACETAMINOPHEN(*)1000 MG/100 ML 100 ML IVPB SCH ×3 (05:37→17:26)
[2018-04-01 07:28] VITALS: BP 173/89
--- NOTE | 2018-04-01 08:45 | General Surgery Progress Note ---
Subjective Progress Notes Subjective passing gas and multiple stools, hungry. Physical Exam Vital Signs Date Time Temp Pulse Resp B/P (MAP) Pulse Ox O2 Delivery O2 Flow Rate FiO2 04/01/18 07:48 95 Nasal Cannula 1.0 04/01/18 07:28 98.1 77 16 173/89 (117) Intake and Output 04/01/18 06:59 Intake Total 2317 ml Output Total 1100 ml Balance 1217 ml Intake Oral 150 ml IV Total 2167 ml Output Urine Total 1000 ml Gastric Drainage Total 100 ml # Bowel Movements 2 General Appearance: Alert, Awake, No Acute Distress, Afebrile Neuro: No Gross deficits Cardiovascular: Normal Rhythm & Peripheral Pulses, Regular Rate and Rhythm, No Edema, No JVD Respiratory: No Respiratory Distress, Clear to Auscultation GI: Soft and Non-Tender, Other (non-distended, no mass or peritoneal signs.) Musculoskeletal: No Weakness/Pain Integumentary: Skin Intact without Lesion / Mass Psych: Alert & Oriented X3, Appropriate Mood & Affect Result Diagram: 03/31/1852103/31/18521 Monitor Interpretation: Normal Sinus Rhythm Assessment and Plan Problems: (1) Adynamic ileus Status: Acute Assessment & Plan: 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 I discussed with him the possible treatment options. I have recommended that we continue NGT suction and NPO, to discontinue narcotics as these medications exacerbate the situation, trial of soap suds enemas, mobilization, repeat labs and abdominal radiographs in the am. Due to his cardiac history I am reluctant to consider Neostigmine. If this progresses or does not improve then attempt at colonoscopic decompression may be indicated. Patient is in agreement with this plan. I will order IV Tylenol and DC morphine. 03/29/2018: Appears slightly improved this am, Abdominal radiographs still pending this am, Will continue with enemas, continue with no narcotics, encouraged to ambulate, check KUB again in am. 03/30/2018: Continues to slowly resolve, passing flatus. radiographs yesterday showed significant dilation of SB and colon, Radiographs today still pending. Would continue NG suction and administer enema again this am. 03/31/2018: feeling better. passing flatus and having multiple bowel movements. Ordered abd series to evaluate for resolution of colonic distension. Maintain NGT today, will plan on removing later today or tomorrow. No need for colonic decompression. Hold all narcotics. 04/01/2018: improved past 24 hours, start clear liquids and slowly adv to full liq later this afternoon. Cont to hold narcotics. Central Venous Access Medical Necessity for Access: IV Access, Medication Administration Time Spent: > 30 min Exam Sepsis Risk: No Definite Risk TIMOTHY KELLY MD Apr 01, 2018 08:45
[2018-04-01] MEDS: METOPROLOL TART 50 MG TAB PO SCH ×2 (09:51→20:47)
[2018-04-01] MEDS: ENOXAPARIN 30 MG/0.3 ML SYR SC SCH (09:52)
--- NOTE | 2018-04-01 11:03 | Hospitalist Progress Note ---
Subjective Progress Notes Subjective He reports much improvement in symptoms. His NG tube was removed yesterday. Patient Complains of: Cardiovascular: No: Chest Pain Respiratory: No: Shortness of Breath Gastrointestinal: No Nausea, No Vomiting Physical Exam Vital Signs Date Time Temp Pulse Resp B/P (MAP) Pulse Ox O2 Delivery O2 Flow Rate FiO2 04/01/18 08:13 73 04/01/18 07:48 95 Nasal Cannula 1.0 04/01/18 07:28 98.1 16 173/89 (117) Intake and Output 04/01/18 07:00 Intake Total 2317 ml Output Total 1100 ml Balance 1217 ml Intake Oral 150 ml IV Total 2167 ml Output Urine Total 1000 ml Gastric Drainage Total 100 ml # Bowel Movements 2 General Appearance: Alert, Awake, No Acute Distress Neuro: No Gross deficits Cardiovascular: Regular Rate and Rhythm Respiratory: No Respiratory Distress, Clear to Auscultation GI: Soft and Non-Tender Extremities: Warm, Perfused; No Edema Psych: Alert & Oriented X3, Appropriate Mood & Affect Result Diagram: 03/31/1852103/31/18521 Monitor Interpretation: Normal Sinus Rhythm Assessment and Plan Problems: (1) Adynamic ileus Status: Acute Assessment & Plan: It appears he has an acute ileus following his lithotripsy 03/30/18. He was admitted IV fluids, antiemetics. Surgery consulted to help manage, NG tube discontinued 03/31. He will advance diet today. Clears for breakfast, then full diet for lunch if tolerated. (2) Oaunu-yf-zvyoxhg kidney injury Assessment & Plan: Baseline Cr 1.4 up to 2.2 prior to admission. SCOTT probably secondary to recent lithotripsy and possibly some volume depletion. IV fluids while NPO. Erazo cath is in place, monitor UOP. His creatinine did decrease to 2.0. (3) Coronary artery disease Status: Chronic Assessment & Plan: He had troponin drawn in the ER with result slightly elevated. He has not had any CP. The elevation may be due to renal insufficiency. 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 (5) ATELECTASIS Status: Acute Assessment & Plan: He did have complaints of SOB 03/30. His abdomen was very distended, which could have been contributing to his SOB. Chest x-ray done suggested some atelectasis and increased elevation of the hemidiaphragm (from abdomen). He was encouraged to use IS, which has resolved symptoms. Central Venous Access Medical Necessity for Access: IV Access, Medication Administration Exam Sepsis Risk: No Definite Risk NAT ALEJOP Apr 01, 2018 11:03
[2018-04-01 11:20] VITALS: BP 144/90
[2018-04-01 14:17] VITALS: BP 141/90
[2018-04-01 19:36] VITALS: BP 169/98
[2018-04-02] MEDS: ACETAMINOPHEN(*)1000 MG/100 ML 100 ML IVPB SCH ×5 (00:01→23:54)
[2018-04-02 00:04] VITALS: BP 165/85
--- NOTE | 2018-04-02 08:17 | General Surgery Progress Note ---
Subjective Progress Notes Subjective feels good. Tolerating regular diet. Physical Exam Vital Signs Date Time Temp Pulse Resp B/P (MAP) Pulse Ox O2 Delivery O2 Flow Rate FiO2 04/02/18 00:04 98.8 76 20 165/85 (111) 93 Nasal Cannula 2.0 Intake and Output 04/02/18 06:59 Intake Total 2089 ml Output Total 650 ml Balance 1439 ml Intake Oral 1000 ml IV Total 1089 ml Output Urine Total 650 ml General Appearance: Alert, Awake, No Acute Distress, Afebrile, Other Neuro: No Gross deficits Cardiovascular: Normal Rhythm & Peripheral Pulses, Regular Rate and Rhythm, No Edema, No JVD Respiratory: No Respiratory Distress, Clear to Auscultation GI: Soft and Non-Tender, Other (non-distended, no peritoneal signs.) Musculoskeletal: No Weakness/Pain Integumentary: Skin Intact without Lesion / Mass Psych: Alert & Oriented X3, Appropriate Mood & Affect Result Diagram: 03/31/1852103/31/18521 Monitor Interpretation: Normal Sinus Rhythm Assessment and Plan Problems: (1) Adynamic ileus Status: Acute Assessment & Plan: 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 I discussed with him the possible treatment options. I have recommended that we continue NGT suction and NPO, to discontinue narcotics as these medications exacerbate the situation, trial of soap suds enemas, mobilization, repeat labs and abdominal radiographs in the am. Due to his cardiac history I am reluctant to consider Neostigmine. If this progresses or does not improve then attempt at colonoscopic decompression may be indicated. Patient is in agreement with this plan. I will order IV Tylenol and DC morphine. 03/29/2018: Appears slightly improved this am, Abdominal radiographs still pending this am, Will continue with enemas, continue with no narcotics, encouraged to ambulate, check KUB again in am. 03/30/2018: Continues to slowly resolve, passing flatus. radiographs yesterday showed significant dilation of SB and colon, Radiographs today still pending. Would continue NG suction and administer enema again this am. 03/31/2018: feeling better. passing flatus and having multiple bowel movements. Ordered abd series to evaluate for resolution of colonic distension. Maintain NGT today, will plan on removing later today or tomorrow. No need for colonic decompression. Hold all narcotics. 04/01/2018: improved past 24 hours, start clear liquids and slowly adv to full liq later this afternoon. Cont to hold narcotics. 04/02/2018 continues to improve. Remove Erazo. Central Venous Access Medical Necessity for Access: IV Access, Medication Administration Time Spent: > 30 min Exam Sepsis Risk: No Definite Risk TIMOTHY KELLY MD Apr 02, 2018 08:17
[2018-04-02 09:33] VITALS: BP 177/91
[2018-04-02] MEDS: METOPROLOL TART 50 MG TAB PO SCH ×2 (09:36→20:45)
[2018-04-02] MEDS: ENOXAPARIN 30 MG/0.3 ML SYR SC SCH (09:36)
--- NOTE | 2018-04-02 10:45 | Hospitalist Progress Note ---
Subjective Progress Notes Subjective He has no complaints this morning. He reports much improvement in bowel symptoms. No problems eating a regular diet yesterday. Patient Complains of: Cardiovascular: No: Chest Pain Respiratory: No: Shortness of Breath Physical Exam Vital Signs Date Time Temp Pulse Resp B/P (MAP) Pulse Ox O2 Delivery O2 Flow Rate FiO2 04/02/18 10:17 94 Nasal Cannula 2.0 04/02/18 09:33 98.3 79 18 177/91 (119) Intake and Output 04/02/18 07:00 Intake Total 2089 ml Output Total 650 ml Balance 1439 ml Intake Oral 1000 ml IV Total 1089 ml Output Urine Total 650 ml General Appearance: Alert, Awake, No Acute Distress, Afebrile Neuro: No Gross deficits Cardiovascular: Regular Rate and Rhythm Respiratory: No Respiratory Distress, Clear to Auscultation GI: Soft and Non-Tender Psych: Alert & Oriented X3, Appropriate Mood & Affect Result Diagram: 03/31/1852103/31/18521 Monitor Interpretation: Normal Sinus Rhythm Assessment and Plan Problems: (1) Adynamic ileus Status: Acute Assessment & Plan: It appears he has an acute ileus following his lithotripsy 03/30/18. He was admitted IV fluids, antiemetics. Surgery consulted to help manage, NG tube discontinued 03/31. He advanced diet without difficulty. Erazo to be removed today. (2) Ldcqp-hm-occvhmv kidney injury Assessment & Plan: Baseline Cr 1.4 up to 2.2 prior to admission. SCOTT probably secondary to recent lithotripsy and possibly some volume depletion. IV fluids while NPO. Erazo cath is in place, monitor UOP. His creatinine did decrease to 2.0. (3) Coronary artery disease Status: Chronic Assessment & Plan: He had troponin drawn in the ER with result slightly elevated. He has not had any CP. The elevation may be due to renal insufficiency. 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 (5) ATELECTASIS Status: Acute Assessment & Plan: He did have complaints of SOB 03/30. His abdomen was very distended, which could have been contributing to his SOB. Chest x-ray done suggested some atelectasis and increased elevation of the hemidiaphragm (from abdomen). He was encouraged to use IS, which has resolved symptoms. Central Venous Access Medical Necessity for Access: IV Access, Medication Administration Exam Sepsis Risk: No Definite Risk NAT ALEJO EXTERN Apr 02, 2018 10:45
--- NOTE | 2018-04-02 11:08 | Medical Nutrition Therapy ---
Nutrition Anthropometrics Height (Inches): 78 (pt is 6'6") Weight (Pounds): 148 Weight (Calculated Kilograms): 67.160 BMI: 17.1 Josué Nutrition Score: Probably Inadequate Josué Nutrition Risk Score: 17 Dietary Referral Nutrition Risk Factors: Diff. Swallowing Nutrition Risk Comment: Removed part of stomach Physical Findings Physical Appearance: Underweight BMI<19 (pt is underwt but is within his usual range) Skin Appearance Skin Appearance: Edema Edema Location Modifier: Edema Location: Type of Edema: Degree of Edema: Gastrointestinal Symptoms GI Symtoms: Change in Bowel Pattern Tube Present: NG Bowel Sounds: Recent Bowel Pattern: Stool Characteristics: Nutritional Diagnosis Nutritional Risk Acuity 1: Ileus Nutritional Risk Acuity 2: Swallowing Problem Nutritional Risk Acuity 3: Nausea, Cancer Past Medical History: HTN, CKD-III, CAD , Nephrolithiasis, PUD, Dyslipidemia, Osteoarthritis, Gout and Throat Cancer HX of [place], Hyperlipidemia, COPD, 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 ilius AEB documented reports of abdominal N/V and diagnosis of adynamic ileus from CT. Energy Requirement: 2049 ([place]-St Jeor: Actual BW X 1.5) Protein Requirement: 67 (Actual BW Kg X 1.0) Fluid Requirement: 2049 Diet Type: NPO (Nothing by Mouth) Nutrition Intervention: Incr diet as tolerated Nutrition Monitoring & Eval Nutrition Goals: Eat 75-100% Meal Nutrition Follow-Up: Good Intake RD Patient Assessment Time: [address] Assessment Type: RD Re-Assessment Patient Nutrition Acuity: 1-High Follow Up Date: Apr 07, 2018 Nutritional Comment: 03/29/18 Pt admitted for adynamic ileus post lithotripsy. Low H/H, Alb 3.0, Ca+ 8.1, Fe 27. Pt NPO d/t ileus. Follow clinical progression, diet changes, labs, etc. -DRT 03/30 Pt cont NPO for ileus. Recommend nutr support. Pt is underwt but is within his usual wt and is up from previous admit. BUN 26, creatinine 2.1, Alb 2.8. Will cont to monitor. BK 04/02 Diet advanced to regular. Pt at 75-100% of regular diet yesterday. Alb has declined to 2.6. Offered nutr supplment but pt refused. Encouraged pt to eat high protein food first. Will cont to monitor and encourage intake. TAMI BACK Apr 02, 2018 11:08
[2018-04-02 11:51] VITALS: BP 165/90
[2018-04-02 15:09] VITALS: BP 176/93
[2018-04-02 20:15] VITALS: BP 171/91
[2018-04-02 22:56] VITALS: BP 150/79
[2018-04-03 02:10] VITALS: BP 158/83
[2018-04-03] MEDS: ACETAMINOPHEN(*)1000 MG/100 ML 100 ML IVPB SCH ×2 (05:47→11:21)
--- NOTE | 2018-04-03 07:43 | General Surgery Progress Note ---
Subjective Progress Notes Subjective suze diet with normal BMs Physical Exam Vital Signs Date Time Temp Pulse Resp B/P (MAP) Pulse Ox O2 Delivery O2 Flow Rate FiO2 04/03/18 02:10 98.4 65 20 158/83 (108) 94 Nasal Cannula 1.0 Intake and Output 04/03/18 07:00 Intake Total 1002 ml Output Total 1650 ml Balance -648 ml Intake Oral 702 ml IV Total 300 ml Output Urine Total 1650 ml # Voids 3 # Bowel Movements 1 General Appearance: Alert, Awake, No Acute Distress, Afebrile Neuro: No Gross deficits Cardiovascular: Normal Rhythm & Peripheral Pulses, Regular Rate and Rhythm Respiratory: No Respiratory Distress, Clear to Auscultation GI: Soft and Non-Tender Integumentary: Skin Intact without Lesion / Mass Psych: Alert & Oriented X3, Appropriate Mood & Affect Result Diagram: 03/31/1852103/31/18521 Monitor Interpretation: Normal Sinus Rhythm Assessment and Plan Problems: (1) Adynamic ileus Status: Acute Assessment & Plan: 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 I discussed with him the possible treatment options. I have recommended that we continue NGT suction and NPO, to discontinue narcotics as these medications exacerbate the situation, trial of soap suds enemas, mobilization, repeat labs and abdominal radiographs in the am. Due to his cardiac history I am reluctant to consider Neostigmine. If this progresses or does not improve then attempt at colonoscopic decompression may be indicated. Patient is in agreement with this plan. I will order IV Tylenol and DC morphine. 03/29/2018: Appears slightly improved this am, Abdominal radiographs still pending this am, Will continue with enemas, continue with no narcotics, e ncouraged to ambulate, check KUB again in am. 03/30/2018: Continues to slowly resolve, passing flatus. radiographs yesterday showed significant dilation of SB and colon, Radiographs today still pending. Would continue NG suction and administer enema again this am. 03/31/2018: feeling better. passing flatus and having multiple bowel movements. Ordered abd series to evaluate for resolution of colonic distension. Maintain NGT today, will plan on removing later today or tomorrow. No need for colonic decompression. Hold all narcotics. 04/01/2018: improved past 24 hours, start clear liquids and slowly adv to full liq later this afternoon. Cont to hold narcotics. 04/02/2018 continues to improve. Remove Erazo. 04/03/2018: adynamic ileus has resolved. ADAT and agree with DC home soon. No surgical follow up required. Central Venous Access Medical Necessity for Access: IV Access, Medication Administration Time Spent: > 30 min Exam Sepsis Risk: No Definite Risk TIMOTHY KELLY MD Apr 03, 2018 07:43
[2018-04-03 08:09] VITALS: BP 178/95
[2018-04-03] MEDS: ENOXAPARIN 30 MG/0.3 ML SYR SC SCH (08:16)
[2018-04-03] MEDS: METOPROLOL TART 50 MG TAB PO SCH (08:16)
[2018-04-03] MEDS ORDERED: METO-253 PO (08:50)
--- NOTE | 2018-04-03 09:07 | Hospitalist Depart ---
Discharge Summary Reason for Hosp/Final Diag: (1) Adynamic ileus Status: Acute Hospital Course & Plan: It appears he had an acute ileus following his lithotripsy 03/30/18. He was admitted IV fluids, antiemetics. Surgery consulted to help manage, NG tube discontinued 03/31. He advanced diet without difficulty. Erazo was removed without difficulty urinating. (2) Oelrc-io-cpdezpb kidney injury Hospital Course & Plan: Baseline Cr 1.4 up to 2.2 prior to admission. SCOTT probably secondary to recent lithotripsy and possibly some volume depletion. IV fluids while NPO. Erazo cath is in place, monitor UOP. His creatinine did decrease to 2.0. (3) Coronary artery disease Status: Chronic Hospital Course & Plan: He had troponin drawn in the ER with result slightly elevated. He has not had any CP. The elevation may be due to renal insufficiency. (4) Head and neck cancer Status: Chronic Hospital Course & Plan: Distant history of laryngeal cancer s/p chemotherapy and radiation therapy. (5) ATELECTASIS Status: Acute Hospital Course & Plan: He did have complaints of SOB 03/30. His abdomen was very distended, which could have been contributing to his SOB. Chest x-ray done suggested some atelectasis and increased elevation of the hemidiaphragm (from abdomen). He was encouraged to use IS, which has resolved symptoms. Departure Latest Vital Signs Vital Signs 04/03/18 04/03/18 08:09 08:12 Temp 98.1 Pulse 70 Resp 20 B/P (MAP) 178/95 (122) Pulse Ox 96 O2 Delivery Nasal Cannula O2 Flow Rate 1.5 Weight (Pounds): 148 Weight (Ounces): 1.0 Result Diagram: 03/31/1852103/31/18521 Condition: Improved Discharge: Home, Self Care PT/OT Follow Up For: PT For Strengthening, OT For ADL's Discharge Instructions Home Meds Active Scripts Metoprolol Tartrate (METOPROLOL TARTRATE) 50 Mg Tab, 50 MG PO BID, #60 TAB Prov:NAT ALEJO 04/03/18 Ergocalciferol (Vitamin D2) (VITAMIN D2) 50,000 Unit Capsule, 95911 UNIT PO silvina campbell for 120 Days, #12 CAPSULE Prov:JASON BARBOZA JOB TRAINING SUPERVISOR-BC, ONC 1/30/18 Folic Acid (FOLIC ACID) 1 Mg Tablet, 1 MG PO QDAY, #90 TAB 3 Refills Prov:JASON BARBOZA JOB TRAINING SUPERVISOR-BC, ONC 06/09/17 Reported Medications Oxybutynin Chloride (DITROPAN XL) 5 Mg Tab.er.24, 5 MG PO QDAY PRN for SPASMS, #10 TAB 03/27/18 Phenazopyridine Hcl (PHENAZOPYRIDINE HCL) 200 Mg Tablet, 200 MG PO TID PRN for SPASMS, #30 TAB 03/27/18 Hydrocodone Bit/Acetaminophen (NORCO 5-325 TABLET) 1 Each Tablet, 1-2 TAB PO Q6H PRN for PAIN, #30 TAB 03/27/18 Vitamin B Complex (B COMPLEX) 1 Each Tablet, 1 EACH PO BID 03/18/18 Acetaminophen 500 Mg Tab (ACETAMINOPHEN EXTRA STRENGTH) 500 Mg Tablet, 500 MG PO Q6-8H PRN for PAIN, TAB 03/18/18 Mirtazapine (MIRTAZAPINE) 15 Mg Tab.rapdis, 15 MG PO QDAY 03/18/18 Aspirin (ASPIRIN) 81 Mg Tab.chew, 81 MG PO QDAY, TAB.CHEW 03/18/18 Simvastatin (SIMVASTATIN) 20 Mg Tablet, 20 MG PO HS, TAB 06/22/17 Allopurinol (ZYLOPRIM) 300 Mg Tablet, 300 MG PO QDAY, TAB 03/29/16 Finasteride (FINASTERIDE) 5 Mg Tablet, 5 MG PO QDAY 04/27/14 Tamsulosin Hcl (Flomax) 0.4 Mg Cap.sr.24h, 0.4 MG PO DAILY 03/14/12 Discontinued Reported Medications Docusate Sodium (COLACE) 100 Mg Capsule, 100 MG PO BID, #30 CAPSULE 03/27/18 Diet: Regular Activity: As Tolerated, With Walker Special Instructions: Please follow up with Dr. Phillips regarding blood pressure. Start taking Metoprolol 50mg twice daily. Follow up with Dr. Henderson. Copies to: KRISTEN PHILLIPS DO; ELISHA HENDERSON MD ; Venous Thromboembolism Antithrombotics Is Pt On Any Antithrombotics?: No (renal hematoma ) [id number] Certification Face to Face Home Health Certification Institutional Provider conducted the [id number] encounter. Electronic Undersigning Physician Certifies Home Health. I certify that the patient has been under my care and that I had a [id number] encounter that meets the physician jrli-[id number] encounter requirements with this patient. This patient is home-bound due to safety issues and continues to require assistance with ADL's. I certify that based on my findings, that Nursing, Aides and the following Home Health services are medically necessary. Medical Necessity: Nursing, Rehab Date Face to Face Conducted: Apr 03, 2018 NAT ALEJO Apr 03, 2018 09:07
== END 2018-04-03 14:40 | disposition home health service (06) | DRG 394 ==
LOC: ER 02:14 → MED 10:05
PROVIDERS: ADMIT Internal Medicine; ATTEND Internal Medicine
PROC: 0D9670Z Drainage of Stomach with Drainage Device, Via Natural or Artificial Opening (ICD-10-PCS; principal; 2018-03-28)
DX: K91.89 Other postprocedural complications and disorders of digestive system (principal); K56.0 Paralytic ileus; N17.9 Acute kidney failure, unspecified; E46 Unspecified protein-calorie malnutrition; Z68.1 Body mass index [BMI] 19.9 or less, adult; I25.10 Atherosclerotic heart disease of native coronary artery without angina pectoris; G89.29 Other chronic pain; J44.9 Chronic obstructive pulmonary disease, unspecified; I12.9 Hypertensive chronic kidney disease with stage 1 through stage 4 chronic kidney disease, or unspecified chronic kidney disease; N18.9 Chronic kidney disease, unspecified; E78.5 Hyperlipidemia, unspecified; Y83.8 Other surgical procedures as the cause of abnormal reaction of the patient, or of later complication, without mention of misadventure at the time of the procedure; Y73.3 Surgical instruments, materials and gastroenterology and urology devices (including sutures) associated with adverse incidents; I25.2 Old myocardial infarction; Z85.21 Personal history of malignant neoplasm of larynx; Z88.0 Allergy status to penicillin; Z91.040 Latex allergy status; Z92.3 Personal history of irradiation; Z92.21 Personal history of antineoplastic chemotherapy
CPT/HCPCS: 36415; 71045; 74019; 74022; 74176; 76001; 76705; 81001; 82040; 82247; 82310; 82365; 82374; 82435; 82565; 82607; 82728; 82746; 82947; 83540; 83550; 83605; 83880; 84075; 84132; 84155; 84295; 84450; 84460; 84484; 84520; 85025; 85610; 85730; 87040; 87088; 88300; 93005; 94667; 97163; 97166; C1769; C2617; G0378; J0131; J0330; J0360; J1100; J1650; J1956; J2001; J2270; J2405; J2550; J2704; J3010; J3490; J7030; J7040; Q9966; S0119

== ENCOUNTER 2018-04-27 18:41 | Emergency (ER) | payer MEDICARE, BC ==
[2018-03-27 10:46] VITALS: Wt 61.2 kg
[2018-04-27] MEDS ORDERED: NS(*) 0.9% 500 ML BAG 500 ML IV ONE (18:55)
[2018-04-27] MEDS ORDERED: fentaNYL CITR 100 MCG/2 ML AMP IVP ONE ×3 (19:00→22:15)
[2018-04-27] MEDS ORDERED: ONDANSETRON 4 MG/2 ML VIAL IVP ONE (19:00)
[2018-04-27 19:22] LABS: PLATELET COUNT, AUTOMATED 256 K/uL (150-450)
[2018-04-27] MEDS ORDERED: PROMETHAZINE 25 MG/ML 1 ML AMP IVP ONE ×2 (20:00→21:25)
--- NOTE | 2018-04-27 20:15 | ER Report ---
History and Physical Time Seen By MD: 18:51 Hx. of Stated Complaint: SINCE COMING HOME FROM PMD, DRY HEAVING, WET COUGH, UPPER ABDOMINAL PAIN HPI/ROS CHIEF COMPLAINT: Severe abdominal pain, vomiting HISTORY OF PRESENT ILLNESS: 72-year-old male presents via ambulance from home after just leaving his private medical doctor's office. He presents with sudden onset of abdominal pain. On his way home. He describes sharp pain radiating through his abdomen into his back. He said several episodes of vomiting. EMS administered Zofran. Formal grams prior to arrival at the hospital and 500 saline. Patient reports no diarrhea or constipation. Patient has a previous admission approximately one month ago for an adynamic ileus. Those records are reviewed. Patient reports no and some patient bad food or exposure to ill contacts. She has a history of coronary artery disease, status post stenting in 97. He appears grossly pale and uncomfortable. Patient has a right renal stent in place. Patient denies fever, chills or dysuria. REVIEW OF SYSTEMS: Respiratory: No cough, no dyspnea. Cardiovascular: No chest pain, no palpitations. Gastrointestinal: As above Musculoskeletal: No back pain. Allergies: Coded Allergies: Penicillins (Verified Allergy, Mild, CAN'T REMEMBER, 03/28/18) latex (Verified Allergy, Mild, RASH, 03/28/18) Home Meds Active Scripts Metoprolol Tartrate (METOPROLOL TARTRATE) 50 Mg Tab, 50 MG PO BID, #60 TAB Prov:NAT ALEJO 04/03/18 Ergocalciferol (Vitamin D2) (VITAMIN D2) 50,000 Unit Capsule, 23960 UNIT PO weekly for 120 Days, #12 CAPSULE Prov:JASON BARBOZA HAND MEAT SALTER-BC, ONC 07/22/17 Folic Acid (FOLIC ACID) 1 Mg Tablet, 1 MG PO QDAY, #90 TAB 3 Refills Prov:JASON BARBOZA HAND MEAT SALTER-BC, ONC 06/09/17 Reported Medications Oxybutynin Chloride (DITROPAN XL) 5 Mg Tab.er.24, 5 MG PO QDAY PRN for SPASMS, #10 TAB 03/27/18 Phenazopyridine Hcl (PHENAZOPYRIDINE HCL) 200 Mg Tablet, 200 MG PO TID PRN for SPASMS, #30 TAB 03/27/18 Hydrocodone Bit/Acetaminophen (NORCO 5-325 TABLET) 1 Each Tablet, 1-2 TAB PO Q6H PRN for PAIN, #30 TAB 03/27/18 Vitamin B Complex (B COMPLEX) 1 Each Tablet, 1 EACH PO BID 03/18/18 Acetaminophen 500 Mg Tab (ACETAMINOPHEN EXTRA STRENGTH) 500 Mg Tablet, 500 MG PO Q6-8H PRN for PAIN, TAB 03/18/18 Mirtazapine (MIRTAZAPINE) 15 Mg Tab.rapdis, 15 MG PO QDAY 03/18/18 Aspirin (ASPIRIN) 81 Mg Tab.chew, 81 MG PO QDAY, TAB.CHEW 03/18/18 Simvastatin (SIMVASTATIN) 20 Mg Tablet, 20 MG PO HS, TAB 06/22/17 Allopurinol (ZYLOPRIM) 300 Mg Tablet, 300 MG PO QDAY, TAB 03/29/16 Finasteride (FINASTERIDE) 5 Mg Tablet, 5 MG PO QDAY 04/27/14 Tamsulosin Hcl (Flomax) 0.4 Mg Cap.sr.24h, 0.4 MG PO DAILY 03/14/12 Past Medical/Surgical History PAST MEDICAL HISTORY 1. Squamous cell carcinoma of the larynx diagnosed in 2008. 2. Right wrist fracture in February of 2009. 3. Myocardial infarction with single coronary artery stent placed in 1996. 4. Hypertension. 5. Hyperlipidemia. 6. COPD. 7. Arthritis. 8. History of ulcer disease. PAST SURGICAL HISTORY 1. Tracheostomy October 2008. 2. Truncal vagotomy and pyloroplasty October 2008. 3. Feeding jejunostomy tube October 2008. 4. Open reduction internal fixation of the right femoral neck fracture. 5. Status post anterior cruciate ligament repair. 6. Status post previous elbow surgery. Reviewed Nurses Notes: Yes Old Medical Records Reviewed: Yes Hx Smoking: Yes Smoking Status: Former Smoker Exposure to Second Hand Smoke?: Yes Hx Substance Use Disorder: Yes Hx Alcohol Use: Yes Constitutional Vital Sign - Last 24 Hours 04/27/18 04/27/18 04/27/18 04/27/18 18:47 18:51 18:52 18:56 Temp 98.0 Pulse 80 80 Resp 16 16 B/P (MAP) 186/128 (147) 186/128 161/89 (113) Pulse Ox 96 97 O2 Delivery Room Air 04/27/18 04/27/18 04/27/18 04/27/18 19:00 19:11 19:26 19:30 Pulse 82 83 Resp 17 12 B/P (MAP) 166/96 (119) 205/109 (141) Pulse Ox 97 96 O2 Delivery Room Air Room Air 04/27/18 04/27/18 04/27/18 04/27/18 19:41 19:56 20:00 20:11 Pulse ??? 88 B/P (MAP) 180/118 (138) Pulse Ox 97 98 O2 Delivery Room Air 04/27/18 04/27/18 04/27/18 04/27/18 20:26 20:30 20:35 20:50 Pulse 92 93 91 Resp 35 B/P (MAP) 166/108 (127) Pulse Ox 96 97 98 O2 Delivery Nasal Cannula O2 Flow Rate 2 04/27/18 04/27/18 04/27/18 04/27/18 21:00 21:05 21:20 21:30 Pulse 104 111 Resp 22 18 B/P (MAP) 176/103 (127) 167/103 (124) Pulse Ox 97 98 04/27/18 21:35 Pulse 96 Resp 19 Pulse Ox 97 O2 Delivery Nasal Cannula Physical Exam General Appearance: The patient is alert, has no immediate need for airway protection and no current signs of toxicity. Skin pale, cool, dry. Vital signs stable, afebrile, pulse ox normal HEENT: Pupils equal and round no injection. Oropharynx without redness or exudate, mucous. Membranes are moist Respiratory: Chest is non tender, lungs are clear to auscultation. Cardiac: regular rate and rhythm Gastrointestinal: Abdomen is soft, moderate tenderness throughout the abdomen. There is guarding, there is pain out of portion clinical findings., no masses, bowel sounds hyperactive. Musculoskeletal: Neck: Neck is supple and non tender. No lymphadenopathy Extremities have full range of motion and are non tender. No edema Skin: No rashes or lesions. DIFFERENTIAL DIAGNOSIS: After history and physical exam differential diagnosis was considered for abdominal pain including but not limited to appendicitis, cholecystitis, gastritis, gastroenteritis, viral syndrome, food poisoning and urinary tract infection. Medical Decision Making Data Points Result Diagram: 04/27/18190404/27/181904 Laboratory Hematology Test 04/27/18 18:48 04/27/18 19:05 04/27/18 19:32 04/27/18 20:02 Whole Blood Glucose 153 mg/DL (75-110) Red Blood Count 3.80 M/uL (4.00-5.60) Mean Corpuscular Volume 99.4 fL (80.0-96.0) Mean Corpuscular Hemoglobin 32.2 pg (26.0-33.0) Mean Corpuscular Hemoglobin Concent 32.4 g/dL (32.0-36.0) Red Cell Distribution Width 14.3 % (11.5-14.5) Mean Platelet Volume 8.3 fL (7.2-11.1) Neutrophils (%) (Auto) 69.1 % (39.4-72.5) Lymphocytes (%) (Auto) 20.8 % (17.6-49.6) Monocytes (%) (Auto) 7.7 % (4.1-12.4) Eosinophils (%) (Auto) 1.1 % (0.4-6.7) Basophils (%) (Auto) 1.3 % (0.3-1.4) Nucleated RBC Relative Count (auto) 0.0 /100WBC Neutrophils # (Auto) 4.5 K/uL (2.0-7.4) Lymphocytes # (Auto) 1.3 K/uL (1.3-3.6) Monocytes # (Auto) 0.5 K/uL (0.3-1.0) Eosinophils # (Auto) 0.1 K/uL (0.0-0.5) Basophils # (Auto) 0.1 K/uL (0.0-0.1) Nucleated RBC Absolute Count (auto) 0.00 K/uL Sodium Level 140 mmol/L (137-145) Potassium Level 3.2 mmol/L (3.5-5.0) Chloride Level 101 mmol/L (98-107) Carbon Dioxide Level 28 mmol/L (22-30) Blood Urea Nitrogen 13 mg/dl (9-21) Creatinine 1.70 mg/dl (0.66-1.25) Glomerular Filtration Rate Calc 39.8 Random Glucose 185 mg/dl (75-110) Calcium Level 8.7 mg/dl (8.4-10.2) Total Bilirubin 0.9 mg/dl (0.2-1.3) Aspartate Amino Transf (AST/SGOT) 18 U/L (0-35) Alanine Aminotransferase (ALT/SGPT) 23 U/L (0-56) Alkaline Phosphatase 75 U/L (0-126) Total Protein 7.5 g/dl (6.3-8.2) Albumin 3.8 g/dl (3.5-5.0) Amylase Level 69 U/L (0-110) Lipase 86 U/L (23-300) Urine Color Yellow Urine Clarity Cloudy Urine pH 5.0 pH (4.8-9.5) Urine Specific [place] 1.014 Urine Protein 100 mg/dL (NEGATIVE) Urine Glucose (UA) Negative mg/dL (NEGATIVE) Urine Ketones Negative mg/dL (NEGATIVE) Urine Blood Large (NEGATIVE) Urine Nitrite Negative (NEGATIVE) Urine Bilirubin Negative (NEGATIVE) Urine Urobilinogen Negative mg/dL (0.2-1.9) Urine Leukocyte Esterase Large (NEGATIVE) Urine RBC 201 /HPF (0-2/HPF) Urine WBC 265 /HPF (0-5/HPF) Urine WBC Clumps Few /HPF Urine Squamous Epithelial Cells Many /LPF (</=FEW) Urine Bacteria Few /HPF (NONE-FEW) Urine Mucus Few /HPF (NONE-FEW) Lactate 4.7 mmol/L (0.7-2.1) Chemistry Test 04/27/18 18:48 04/27/18 19:05 04/27/18 19:32 04/27/18 20:02 Whole Blood Glucose 153 mg/DL (75-110) White Blood Count 6.5 k/uL (4.5-11.0) Red Blood Count 3.80 M/uL (4.00-5.60) Hemoglobin 12.2 g/dL (14.0-18.0) Hematocrit 37.8 % (42.0-52.0) Mean Corpuscular Volume 99.4 fL (80.0-96.0) Mean Corpuscular Hemoglobin 32.2 pg (26.0-33.0) Mean Corpuscular Hemoglobin Concent 32.4 g/dL (32.0-36.0) Red Cell Distribution Width 14.3 % (11.5-14.5) Platelet Count 256 K/uL (150-450) Mean Platelet Volume 8.3 fL (7.2-11.1) Neutrophils (%) (Auto) 69.1 % (39.4-72.5) Lymphocytes (%) (Auto) 20.8 % (17.6-49.6) Monocytes (%) (Auto) 7.7 % (4.1-12.4) Eosinophils (%) (Auto) 1.1 % (0.4-6.7) Basophils (%) (Auto) 1.3 % (0.3-1.4) Nucleated RBC Relative Count (auto) 0.0 /100WBC Neutrophils # (Auto) 4.5 K/uL (2.0-7.4) Lymphocytes # (Auto) 1.3 K/uL (1.3-3.6) Monocytes # (Auto) 0.5 K/uL (0.3-1.0) Eosinophils # (Auto) 0.1 K/uL (0.0-0.5) Basophils # (Auto) 0.1 K/uL (0.0-0.1) Nucleated RBC Absolute Count (auto) 0.00 K/uL Glomerular Filtration Rate Calc 39.8 Calcium Level 8.7 mg/dl (8.4-10.2) Total Bilirubin 0.9 mg/dl (0.2-1.3) Aspartate Amino Transf (AST/SGOT) 18 U/L (0-35) Alanine Aminotransferase (ALT/SGPT) 23 U/L (0-56) Alkaline Phosphatase 75 U/L (0-126) Total Protein 7.5 g/dl (6.3-8.2) Albumin 3.8 g/dl (3.5-5.0) Amylase Level 69 U/L (0-110) Lipase 86 U/L (23-300) Urine Color Yellow Urine Clarity Cloudy Urine pH 5.0 pH (4.8-9.5) Urine Specific [place] 1.014 Urine Protein 100 mg/dL (NEGATIVE) Urine Glucose (UA) Negative mg/dL (NEGATIVE) Urine Ketones Negative mg/dL (NEGATIVE) Urine Blood Large (NEGATIVE) Urine Nitrite Negative (NEGATIVE) Urine Bilirubin Negative (NEGATIVE) Urine Urobilinogen Negative mg/dL (0.2-1.9) Urine Leukocyte Esterase Large (NEGATIVE) Urine RBC 201 /HPF (0-2/HPF) Urine WBC 265 /HPF (0-5/HPF) Urine WBC Clumps Few /HPF Urine Squamous Epithelial Cells Many /LPF (</=FEW) Urine Bacteria Few /HPF (NONE-FEW) Urine Mucus Few /HPF (NONE-FEW) Lactate 4.7 mmol/L (0.7-2.1) Urinalysis Test 04/27/18 19:32 Urine Color Yellow Urine Clarity Cloudy Urine pH 5.0 pH (4.8-9.5) Urine Specific [place] 1.014 Urine Protein 100 mg/dL (NEGATIVE) Urine Glucose (UA) Negative mg/dL (NEGATIVE) Urine Ketones Negative mg/dL (NEGATIVE) Urine Blood Large (NEGATIVE) Urine Nitrite Negative (NEGATIVE) Urine Bilirubin Negative (NEGATIVE) Urine Urobilinogen Negative mg/dL (0.2-1.9) Urine Leukocyte Esterase Large (NEGATIVE) Urine RBC 201 /HPF (0-2/HPF) Urine WBC 265 /HPF (0-5/HPF) Urine WBC Clumps Few /HPF Urine Squamous Epithelial Cells Many /LPF (</=FEW) Urine Bacteria Few /HPF (NONE-FEW) Urine Mucus Few /HPF (NONE-FEW) EKG/Imaging EKG Interpretation 12 lead EK Rhythm: normal sinus rhythm Mathias: normal QRS: Left ventricular hypertrophy with repolarization abnormality him a prolonged QT ST segments: normal Imaging Results: CT scan of the abdomen and pelvis without IV contrast was obtained. The results of the study are The study was read by the radiologist. I viewed the images myself on the PACS system. X-ray: Single view portable chest x-ray was obtained. I viewed the images myself on the PACS system. My interpretation of the images is: No infiltrate, no effusion, normal mediastinum, dilated loops of bowel noted below the diaphragm. The radiologist interpretation had no clinically significant variation from this interpretation. ED Course/Re-evaluation Clinical Indication for ER IV: Hydration, IV Access ED Course Patient was admitted to an examination room. H&P was done. The differential diagnoses was considered. On conical examination. Patient has repeated vomiting. His vitals are stable. He appears in severe distress. He has an acute abdomen on examination with guarding everywhere. Ounce are hyperactive. Diagnostic studies show a normal CBC with elevated H&H from previous labs. His lactate returns at 4.7. Patient's treated with IV fluid hydration. His renal function will not tolerate contrast. A CT scan without contrast is ordered. 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 It appears to be threatening significant small bowel. A emergent surgical consult was obtained. A 2nd peripheral IV was established and lactated Ringer's was initiated to aggressively hydrate the patient. 04/27/2018 8:43:07 pm case discussed with Dr. Hawk [facility] on-call, who will consult on the patient. He thinks the patient may need to be transferred to a facility with higher level of care. Since he has previous cardiac disease and renal failure. We'll be unable to manage him in our small facility with no specialty services available. He has history of coronary artery disease and chronic renal failure. 04/27/2018 9:02:31 pm case discussed with general surgery at [facility] 04/27/2018 9:07:36 pm case was discussed with Dr. Mann, ER attending Decision to Disposition Date: Apr 27, 2018 Decision to Disposition Time: 20:18 Critical Care Time I spent a total of 90 minutes of critical care time in obtaining history, performing a physical exam, bedside monitoring of interventions, collecting and interpreting tests and discussion with consultants but not including time spent performing procedures. Depart Departure Latest Vital Signs Vital Signs Date Time Temp Pulse Resp B/P (MAP) Pulse Ox O2 Delivery O2 Flow Rate FiO2 04/27/18 21:35 96 19 97 Nasal Cannula 04/27/18 21:30 167/103 (124) 04/27/18 20:26 2 04/27/18 18:51 98.0 Impression: Primary Impression: Ischemic bowel syndrome Additional Impressions: Volvulus of intestine History of coronary artery disease Renal failure Condition: Improved Disposition: XFER TO ACUTE CARE HOSPITAL Problem Qualifiers Additional Impressions: Renal failure Renal failure chronicity: chronic Chronic kidney disease stage: stage 2 (mild) Qualified Codes: N18.2 - Chronic kidney disease, stage 2 (mild) IVA BISWAS DO Apr 27, 2018 20:15
--- NOTE | 2018-04-27 20:24 | RADIOLOGY IMAGING REPORT ---
FACILITY: [facility] - [place] PATIENT NAME: José Miguel Lara : 1945 MR: [id number] V: [id number] EXAM DATE: ORDERING PHYSICIAN: IVA BISWAS TECHNOLOGIST: Location: [facility] Patient: José Miguel Lara : 1945 Visit/Account:[id number] Date of Sevice: 04/27/2018 Technique: CHEST SINGLE AP HISTORY: weakness Comparison studies: Wrist radiographs January 28, 2018 FINDINGS: There remains elevation of the right hemidiaphragm. No acute airspace consolidation. Increa sed interstitial lung markings are again identified. The cardiomediastinal silhouette is unchanged. IMPRESSION: 1. No acute cardiopulmonary process. 2. Chronic lung findings. Report Dictated By: Rudolph Cruz DO at 04/27/2018 8:19 PM Report E-Signed By: Rudolph Cruz DO at 04/27/2018 8:21 PM WSN:[id number]
--- NOTE | 2018-04-27 20:44 | RADIOLOGY IMAGING REPORT ---
[place] [facility] [place] NAME: José Miguel Lara : 1945 MR: [id number] V: [id number] EXAM DATE: ORDERING PHYSICIAN: IVA BSIWAS TECHNOLOGIST: Location: [facility] - [place] Patient: José Miguel Lara : 1945 Visit/Account:[id number] Date of Sevice: 04/27/2018 EXAMINATION: CT ABDOMEN AND PELVIS WITHOUT CONTRAST COMPARISON: 03/28/2018 and earlier. HISTORY: Severe abdominal pain. PROCEDURE: Multiplanar noncontrast CT of the abdomen and pelvis. One of the following dose optimizati on techniques was utilized in the performance of this exam: Automated exposure control; adjustment of the mA and/or kV according to the patient's size; or use of an iterative reconstruction technique. Specific details can be referenced in the facility's radiology CT exam operational policy. FINDINGS: Evaluation of the solid and viscus parenchymal organs and vascular structures is limited wi thout the benefit of IV contrast. Visualized thorax: The visualized ascending thoracic aorta measures up to 4.0 cm and is unchanged. Ad vanced coronary calcifications. Trace pericardial effusion has slightly increased in size. Slightly d ecreased bilateral trace pleural effusions. No evidence of acute disease in the lung parenchyma. Liver: Noncontrast imaging of the visualized liver is within normal limits. Gallbladder and biliary system: Cholelithiasis. The gallbladder is mildly distended but there is no p ericholecystic inflammation. No duct dilation. A 3 mm calcification near the distal duct is unchanged and favored to be a pancreatic parenchymal calcification, not an intraductal stone. Spleen: Negative. Pancreas: Noncontrast imaging of the pancreas is within normal limits. Adrenal glands: Negative. Kidneys and bladder: Partial resolution of the right kidney subcapsular hematoma; the collection has decreased in both size and density, now measuring 5.3 x 2.1 x 5.5 cm in maximal dimension, previously 6.3 x 3.0 x 6.6 cm. A right ureteral stent is normally positioned. Vessels: Aortoiliac advanced atherosclerosis dense atherosclerotic plaque is also present in the prox imal left main renal artery as well as along the proximal superior mesenteric artery. Mesenteric vess els are further discussed below. Bowel and mesentery: Mildly distended stomach. In the central mesentery there is an abnormal rotation of the mesenteric root. Although evaluation of the vasculature is limited by the lack of contrast, t his does result in significant compression of both the mesenteric artery and vein. Distal to this rot ation the mesentery is markedly edematous with venous congestion as well as small bowel distention an d wall thickening. No definite pneumatosis or portal venous gas is identified at this time. Appendix is within normal limits. Minimal stool in the colon. There are a few colonic diverticula. No definite primary colonic inflammation. Pelvic organs: Moderately enlarged prostate. Lymph nodes: No adenopathy. Free air/free fluid: Small amount of simple appearing free fluid which is favored to be reactive. No organized fluid collection. No pneumoperitoneum. Abdominal wall and osseous structures: Abdominal wall is intact. Bilateral femoral neck internal fixa tion. Lumbar spine multilevel degenerative change with a degenerative scoliosis. IMPRESSION: 1. As further described above there is a mesenteric volvulus with marked mesenteric and small bowel e robert which is highly suspicious for bowel ischemia. Emergent surgical consultation is required. 2. Decreased size of the right kidney subcapsular hematoma. Normally positioned right ureteral stent. 3. Decreased pleural effusions. 4. Cholelithiasis. 5. Additional chronic/incidental findings as detailed above. Results were discussed with IVA BISWAS at 04/27/2018 8:37 PM. Report Dictated By: Cheikh Muñoz MD at 04/27/2018 8:15 PM Report E-Signed By: Cheikh Muñoz MD at 04/27/2018 8:40 PM WSN:[id number]
[2018-04-27] MEDS ORDERED: LR(*) 1000 ML BAG 1,000 ML IV PRN (20:45)
--- NOTE | 2018-04-27 20:47 | EKG ---
FACILITY: [facility] - [place] PATIENT NAME: HARI BLACKWOOD : [id number] MR: [id number] V: [id number] EXAM DATE: ORDERING PHYSICIAN: IVA BISWAS TECHNOLOGIST: KALIN Dalton Reason : ABD. PAIN Blood Pressure : / mmHG Vent. Rate : 081 BPM Atrial Rate : 081 BPM P-R Int : 144 ms QRS Dur : 086 ms QT Int : 448 ms P-R-T Axes : 055 040 053 degrees QTc Int : 520 ms Normal sinus rhythm Left ventricular hypertrophy with repolarization abnormality Prolonged QT Abnormal ECG When compared with ECG of 30-MAR-2018 08:53, Nonspecific T wave abnormality no longer evident in Anterior leads Confirmed by WILLIAM MARLOW ([id number]) on 04/27/2018 10:05:32 PM Referred By: TRUE Confirmed By:WILLIAM MARLOW
[2018-04-27] MEDS ORDERED: ERTAPENEM(*) 1 GM VIAL 1 GM in NS(*) 0.9% 100 ML ADDVANT BAG 100 ML IVPB ONE (21:10)
[2018-04-27 21:30] VITALS: BP 167/103
--- NOTE | 2018-04-27 21:35 | Gen Surgery History & Physical ---
History of Present Illness Chief Complaint Abdominal Pain History of Present Illness 72yo male who presents with acute onset of abdominal pain. Seen in the ED and found to have a mid-gut volvulus; small bowel with thickened wall suggestive of ischemia. 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 Now has anterior cervical contractures. I was asked to help evaluate and treat. History Problems: (1) Coronary artery disease Status: Chronic (2) Malnutrition Status: Chronic (3) CKD (chronic kidney disease) Status: Chronic (4) Hypertension Status: Chronic (5) History of coronary artery disease Status: Acute (6) Myocardial infarction *Optional Permanent Comment*: with single coronary artery stent placement Last Edited By: Nat Rabago on Apr 26, 2014 10:57 Onset Date: 1996 Status: Chronic (7) Hyperlipidemia Status: Chronic (8) History of ulcer disease *Optional Permanent Comment*: Last Edited By: Hawk Reed MD on Apr 27, 2018 21:34 Status: Chronic (9) Head and neck cancer *Optional Permanent Comment*: laryngeal CA s/p chemoradiation at [facility] in 2008 Last Edited By: Hawk Reed MD on Apr 27, 2018 21:33 Status: Chronic (10) History of vagotomy *Optional Permanent Comment*: and pyloroplasty for posterior duodenal ulcer with erosion into the gastroduodenal artery Last Edited By: Nat Rabago on Apr 26, 2014 10:58 Onset Date: ~ 10/2008 Status: Chronic (11) History of open reduction and internal fixation (ORIF) procedure *Optional Permanent Comment*: right femoral neck fracture Last Edited By: Nat Rabago on Apr 26, 2014 11:01 Onset Date: ~ 12/2008 Status: Chronic (12) S/P ACL repair Status: Chronic (13) H/O elbow surgery Status: Chronic (14) Status post emergency tracheotomy for assistance in breathing Onset Date: ~ 10/2008 Status: Chronic (15) Former smoker, stopped smoking many years ago *Optional Permanent Comment*: He quit tobacco in 10/2008. Prior to that he smoked for about 41 years. Last Edited By: Nat Rabago on Apr 26, 2014 11:03 Status: Resolved (16) Alcohol drinker *Optional Permanent Comment*: about 2 drinks per month Last Edited By: Nat Rabago on Apr 26, 2014 11:02 Status: Chronic Home Meds Active Scripts Metoprolol Tartrate (METOPROLOL TARTRATE) 50 Mg Tab, 50 MG PO BID, #60 TAB Prov:NAT ALEJO CDL PROGRAM COORDINATOR 04/03/18 Ergocalciferol (Vitamin D2) (VITAMIN D2) 50,000 Unit Capsule, 30263 UNIT PO weekly for 120 Days, #12 CAPSULE Prov:JASON BARBOZA CDL PROGRAM COORDINATOR-BC, ONC 07/22/17 Folic Acid (FOLIC ACID) 1 Mg Tablet, 1 MG PO QDAY, #90 TAB 3 Refills Prov:JASON BARBOZA CDL PROGRAM COORDINATOR-BC, ONC 06/09/17 Reported Medications Oxybutynin Chloride (DITROPAN XL) 5 Mg Tab.er.24, 5 MG PO QDAY PRN for SPASMS, #10 TAB 03/27/18 Phenazopyridine Hcl (PHENAZOPYRIDINE HCL) 200 Mg Tablet, 200 MG PO TID PRN for SPASMS, #30 TAB 03/27/18 Hydrocodone Bit/Acetaminophen (NORCO 5-325 TABLET) 1 Each Tablet, 1-2 TAB PO Q6H PRN for PAIN, #30 TAB 03/27/18 Vitamin B Complex (B COMPLEX) 1 Each Tablet, 1 EACH PO BID 03/18/18 Acetaminophen 500 Mg Tab (ACETAMINOPHEN EXTRA STRENGTH) 500 Mg Tablet, 500 MG PO Q6-8H PRN for PAIN, TAB 03/18/18 Mirtazapine (MIRTAZAPINE) 15 Mg Tab.rapdis, 15 MG PO QDAY 03/18/18 Aspirin (ASPIRIN) 81 Mg Tab.chew, 81 MG PO QDAY, TAB.CHEW 03/18/18 Simvastatin (SIMVASTATIN) 20 Mg Tablet, 20 MG PO HS, TAB 06/22/17 Allopurinol (ZYLOPRIM) 300 Mg Tablet, 300 MG PO QDAY, TAB 03/29/16 Finasteride (FINASTERIDE) 5 Mg Tablet, 5 MG PO QDAY 04/27/14 Tamsulosin Hcl (Flomax) 0.4 Mg Cap.sr.24h, 0.4 MG PO DAILY 03/14/12 Allergies: Coded Allergies: Penicillins (Verified Allergy, Mild, CAN'T REMEMBER, 03/28/18) latex (Verified Allergy, Mild, RASH, 03/28/18) Patient History: FH: cancer AUNT FH: leukemia GRANDFATHER FH: lung cancer FATHER, Onset:68 Review of Systems All Systems Reviewed/Normal: Yes, Except as Noted Constitutional: Weight Loss Gastrointestinal: Nausea, Vomiting; No Diarrhea, No Constipation; Abdominal Pain Musculoskeletal: Pain Exam General Appearance: Alert, Awake, Other (Moderate distress due to abdominal pain) Neuro: No Gross deficits Eyes: PERRLA Neck: Other (Severe anterior neck contractures) Cardiovascular: Regular Rate and Rhythm Respiratory: No Respiratory Distress GI: Other (distended, tender to palpation) Extremities: Warm Psych: Alert & Oriented X3, Appropriate Mood & Affect Medical Decision Making Data Points Result Diagram: 04/27/18190404/27/181904 Pre-Admit Course Medical Record Review: Yes Assessment and Plan Problems: (1) Volvulus of intestine Status: Acute Assessment & Plan: Mr. Lara has a history and CT evidence supporting a mid-gut volvulus with ischemia. He is a high-risk candidate for surgery based on his medical history; coronary disease, peripheral vascular disease, acute on chronic renal insufficiency. He will also be a difficult surgery with neck contractures complicating his airway management and previous duodenal-aortic fistula. This exceeds the capability of what is available both intra-operatively and post- operatively here at [facility]. I spoke with the family who would like to proceed with care. Call to [facility] transfer line resulted in discussion and acceptance at [facility] by Dr. Gallego. He will be transferred by helicopter emergently. Central Venous Access Medical Necessity for Access: IV Access, Medication Administration Venous Thromboembolism VTE Risk Physician Assess for VTE Risk: Yes Patient's VTE Risk: High VTE Diagnostic Test 2 Days Prior to Admit: No Antithrombotics Is Pt On Any Antithrombotics?: No HAWK REED MD Apr 27, 2018 21:18
[2018-04-27] MEDS ORDERED: fentaNYL CITR 100 MCG/2 ML AMP ONE (22:17)
== END 2018-04-27 22:21 | disposition short-term general hospital (02) ==
LOC: ER 18:47
DX: K55.9 Vascular disorder of intestine, unspecified (principal); K56.2 Volvulus; N18.2 Chronic kidney disease, stage 2 (mild); I25.10 Atherosclerotic heart disease of native coronary artery without angina pectoris
CPT/HCPCS: 36415; 36416; 71045; 74176; 81001; 82150; 82948; 83605; 83690; 85025; 93005; 96365; 96375; 96376; 99291; 99292; J1335; J2405; J2550; J3010; J7040; J7050; 82040; 82247; 82310; 82374; 82435; 82565; 82947; 84075; 84132; 84155; 84295; 84450; 84460; 84520

== ENCOUNTER → 2018-04-27 | Outpatient (CLI) | payer MEDICARE, BC ==
[2018-03-27 10:46] VITALS: BMI 15.4
[~2018-04-27] MED LIST changes: -HYDR-4309 PO; +HYDR-653 PO; +METO-253 PO
== END ==
LOC: AMB 18:11
PROVIDERS: ATTEND Nurse Practitioner
DX: R10.84 Generalized abdominal pain (principal); R11.0 Nausea; R53.1 Weakness; M54.5 Low back pain; Z87.442 Personal history of urinary calculi
CPT/HCPCS: A0425; A0427

== ENCOUNTER → 2018-04-27 | Outpatient (REF) ==
[2018-03-27 10:46] VITALS: BMI 15.4
== END ==
LOC: AMB 21:41
PROVIDERS: ATTEND Nurse Practitioner
DX: K55.9 Vascular disorder of intestine, unspecified (principal)

== ENCOUNTER 2018-05-06 11:13 | Inpatient (IN) | payer MEDICARE, BC ==
[2018-03-27 10:46] VITALS: Ht 198.1 cm; Wt 61.2 kg
[~2018-05-06] VITALS: Ht 198.1 cm; Wt 61.2 kg
[2018-05-06 12:40] VITALS: BP 141/78
--- NOTE | 2018-05-06 13:26 | History & Physical ---
History of Present Illness Chief Complaint Weak History of Present Illness 72yo male with extensive PMHx including CKD, COPD, SCCa of larynx, PUD, hip fracture s/p ORIF. He was recently admitted to [facility] for small bowel volvulus/obstruction. He underwent surgical correction on 04/28/18. He now returns to [facility] for rehabilitative therapy. He reports doing well other than feeling weak and "I haven't done much yet". He denies any cardiorespiratory complaints. He has good appetite. He does have mild dysphagia, but eats a regular diet. He is having regular BMs. No diarrhea/blood stools. He has been up at bedside, but has not been ambulating much at all as of yet. History Problems: (1) Closed left hip fracture Status: Chronic (2) Postoperative anemia Status: Chronic (3) SBO (small bowel obstruction) Status: Chronic (4) Adynamic ileus Status: Resolved (5) Vitamin D deficiency Status: Chronic (6) Osteoporosis Status: Chronic (7) Coronary artery disease Status: Chronic (8) Malnutrition Status: Chronic (9) Hypertension Status: Chronic (10) CKD (chronic kidney disease) Status: Chronic (11) Right wrist fracture Onset Date: ~ 02/2009 Status: Resolved (12) Hyperlipidemia Status: Chronic (13) Arthritis Status: Chronic (14) Compression fracture Status: Chronic (15) Head and neck cancer Status: Chronic (16) Status post emergency tracheotomy for assistance in breathing Onset Date: ~ 10/2008 Status: Chronic (17) History of vagotomy Onset Date: ~ 10/2008 Status: Chronic (18) Hx of jejunostomy Onset Date: ~ 10/2008 Status: Chronic (19) History of open reduction and internal fixation (ORIF) procedure Onset Date: ~ 12/2008 Status: Chronic (20) S/P ACL repair Status: Chronic (21) H/O elbow surgery Status: Chronic Home Meds Active Scripts Metoprolol Tartrate (METOPROLOL TARTRATE) 50 Mg Tab, 50 MG PO BID, #60 TAB Prov:NAT ALEJO ENVIRONMENTAL COMPLIANCE INSPECTOR 04/03/18 Ergocalciferol (Vitamin D2) (VITAMIN D2) 50,000 Unit Capsule, 30981 UNIT PO weekly for 120 Days, #12 CAPSULE Prov:JASON BARBOZA ENVIRONMENTAL COMPLIANCE INSPECTOR-BC, ONC 07/22/17 Folic Acid (FOLIC ACID) 1 Mg Tablet, 1 MG PO QDAY, #90 TAB 3 Refills Prov:JASON BARBOZA Brianna ENVIRONMENTAL COMPLIANCE INSPECTOR-BC, ONC 06/09/17 Reported Medications Oxybutynin Chloride (DITROPAN XL) 5 Mg Tab.er.24, 5 MG PO QDAY PRN for SPASMS, #10 TAB 03/27/18 Phenazopyridine Hcl (PHENAZOPYRIDINE HCL) 200 Mg Tablet, 200 MG PO TID PRN for SPASMS, #30 TAB 03/27/18 Hydrocodone Bit/Acetaminophen (NORCO 5-325 TABLET) 1 Each Tablet, 1-2 TAB PO Q6H PRN for PAIN, #30 TAB 03/27/18 Vitamin B Complex (B COMPLEX) 1 Each Tablet, 1 EACH PO BID 03/18/18 Acetaminophen 500 Mg Tab (ACETAMINOPHEN EXTRA STRENGTH) 500 Mg Tablet, 500 MG PO Q6-8H PRN for PAIN, TAB 03/18/18 Mirtazapine (MIRTAZAPINE) 15 Mg Tab.rapdis, 15 MG PO QDAY 03/18/18 Aspirin (ASPIRIN) 81 Mg Tab.chew, 81 MG PO QDAY, TAB.CHEW 03/18/18 Simvastatin (SIMVASTATIN) 20 Mg Tablet, 20 MG PO HS, TAB 06/22/17 Allopurinol (ZYLOPRIM) 300 Mg Tablet, 300 MG PO QDAY, TAB 03/29/16 Finasteride (FINASTERIDE) 5 Mg Tablet, 5 MG PO QDAY 04/27/14 Tamsulosin Hcl (Flomax) 0.4 Mg Cap.sr.24h, 0.4 MG PO DAILY 03/14/12 Allergies: Coded Allergies: Penicillins (Verified Allergy, Mild, CAN'T REMEMBER, 03/28/18) latex (Verified Allergy, Mild, RASH, 03/28/18) Patient History: FH: cancer AUNT FH: leukemia GRANDFATHER FH: lung cancer FATHER, Onset:68 Hx Smoking: Yes Smoking Status: Former Smoker Exposure to Second Hand Smoke?: Yes Caffeine Intake: Soda Caffeine/Cups Per Day: rarely Hx Alcohol Use: Yes Hx Substance Use Disorder: Yes Social Drug Use: Occasional Social Drugs: Marijuana, LSD Review of Systems Constitutional: No Fever, No Chills Cardiovascular: No Chest Pain, No Palpitations Respiratory: No Shortness of Breath, No Cough Gastrointestinal: No Nausea, No Vomiting, No Diarrhea, No Constipation, No Hematemesis, No Hematochezia, No Melena, No Abdominal Pain Genitourinary: No Dysuria, No Hematuria Exam General Appearance: Alert, Awake, Other (cachectic appearing) Neuro: Other (generalized weakness all muscle groups) ENT: Oropharynx Clear Neck: Other (radiation changes with some contracture/anterior flexion/no masses noted) Cardiovascular: Regular Rate and Rhythm Respiratory: Other (decreased breath sounds bilaterally/no rales/wheezes) Chest: No Tenderness GI: Other (soft/BS present/midline laparotomy incision clean/dry with mahogany in place/some erythema at distal aspect/no drainage) : No CVA Tenderness Extremities: Warm, Perfused Psych: Alert & Oriented X3 Assessment and Plan Problems: (1) Volvulus of intestine Status: Acute Assessment & Plan: He appears to be recovering fairly well, but is still too weak to return home. Will work on mobility/strength with PT/OT. Will continue nutritional support as well. He will be due to have mahogany out in 2-4 days. (2) Hypertension Status: Chronic Assessment & Plan: Continue metoprolol. Watch BPs. Modify as needed. (3) Head and neck cancer *Optional Permanent Comment*: laryngeal CA s/p chemoradiation at [facility] in 2008 Last Edited By: Hawk Hansen MD on Apr 27, 2018 21:33 Status: Chronic Assessment & Plan: It sounds as if he has had some mild dysphagia. Watch closely. If any problems, may need to consider getting esophogram. (4) CKD (chronic kidney disease) Status: Chronic Assessment & Plan: Will check labs. Monitor. (5) Malnutrition Status: Chronic Assessment & Plan: Will work on nutritional support while he is here. (6) COPD (chronic obstructive pulmonary disease) Status: Chronic Assessment & Plan: Will continue supplemental oxygen. He has not been on any other respiratory treatments at this time. (7) Gout Status: Chronic Assessment & Plan: Continue allopurinol. Central Venous Access Medical Necessity for Access: IV Access, Medication Administration Copies to: KRISTEN SIERRA DO ; Venous Thromboembolism Antithrombotics Is Pt On Any Antithrombotics?: Yes LEONILA LITTLE MD May 06, 2018 13:26
[2018-05-06] MEDS ORDERED: SIMETHICONE 80 MG CHEW CHEW PRN (15:20)
--- NOTE | 2018-05-06 16:16 | OT ECF NOTE ---
Type of Note: Initial Note Primary Medical Diagnosis: Generalized weakness s/p hospital admission for small bowel volvulus with repair 04/28/18. At [facility] 04/27/18 thru 05/06/18. Occupational Therapy Evaluation Date: 05/06/18 SUBJECTIVE: Prior Hospitalization: [facility] 04/27/18 thru 05/06/18. Please refer to EMR for detailed listing of recent hospitalizations. Prior Level of Function: Modified Independent for ADLs and IADLs. Spouse is wheelchair dependent and pt reports they "work as a team" for IADLs. Pt utilizes the electric scooter when at grocery store and family assists with going to post office when needed. Prior Living Status: Single level house Spouse Assist by family Community Services: No known needs Home Accessibility: Ramp All needs on one level Walk-in shower Equipment Owned: Front wheeled walker Toilet riser Tub/shower chair Wheelchair Medical Complications/Past Medical History: Please refer to EMR Psychosocial Support: Supportive spouse and family in [place] Pain Scale (0-10): No report of pain at time of evaluation OBJECTIVE: Strength: MMT: Right Left Shoulder Flexion WFL WFL Elbow Flexion WFL WFL Wrist Extension WFL WFL Manager In Training WFL WFL (5= normal, 4= good, 3= fair, 2= poor, 1= trace) ROM: Both upper extremities, WFL Sensation: No concerns Functional Transfer: Assistive Device: Transfer Ability: Pt declining to get OOB at this time. Subjective evaluation only completed this date. Will follow with further ADL performance evaluation in tomorrow's session. ADL: Upper body dressing: Assistive device: Upper body dressing ability: Lower body dressing: Assistive device: Lower body dressing ability: Toileting: Assistive device: Toileting ability: Grooming/hygiene: Assistive device: Grooming ability: Bathing: Assistive device: Bathing ability: Standardized Assessment: Dominguez Index of Activities of Daily Living: Will assess in future tx sessions as pt declined to get OOB. ASSESSMENT: [facility] generalized weakness and decreased independence with ADLs/IADLs. He will benefit from skilled OT services to improve strength and endurance for engagement with ADLs/IADLs. Problem List/Current Limitations: Decreased activity tolerance Decreased strength Generalized weakness Short Term Goals: 1) Pt will be Mod (I) UB/LB dressing. 2) Pt will be Mod (I) toilet task. 3) Pt will be Independent grooming standing/seated. 4) Pt will be Mod (I) shower task. 5) Pt Dominguez Index of ADLs score will increase by 2 points. Instrument Lens Grinder Goals: Return home with services Patient Goals: "Walk more" Rehabilitation Prognosis: Good Barriers to Discharge: Medical hx PLAN: The patient will benefit from skilled occupational therapy services 5 times per week for 2 weeks including: Ther ex ADL training Ther act IADL training Transfer training Adaptive equip training Bed mobility Energy conservation Thank you for this referral. If you have any questions, concerns, or comments about this report or plan, please contact me at . Sandy Abebe MS, OTR/L Occupational Therapist JEFFREY
--- NOTE | 2018-05-06 16:49 | Consultant Pharmacy Review ---
Piecer Up Review Medication Review Do All Mecications have a Diag: Yes Other General Cautions Lexicomp Interaction Analysis A = No known interaction C = Monitor therapy X = Avoid combination B = No action needed D = Consider therapy modification Drugs in this analysis: Acetaminophen; Allopurinol; Ascorbic Acid; Aspirin; Calcium Carbonate and Vitamin D; Docusate Sodium (SYN); Finasteride; Flomax; Folbee; Folic Acid; Lopressor; Lovenox; Mirtazapine; Simethicone; Simvastatin * Drug-Drug Interactions * D Allopurinol Calcium Carbonate and Vitamin D (Antacids) C Aspirin (Agents with Antiplatelet Properties) Lovenox (Anticoagulants) Depends on International labeling C Aspirin (Salicylates) Lovenox (Anticoagulants) C Flomax (Alpha1-Blockers) Lopressor (Beta-Blockers) Depends on Dosage Form C Flomax (Hypotension-Associated Agents) Lopressor (Blood Pressure Lowering Agents) B Ascorbic Acid Aspirin Depends on Dose B Aspirin (Salicylates) Calcium Carbonate and Vitamin D (Antacids) Depends on Duration * Aspirin Calcium Carbonate and Vitamin D Folbee Folic Acid * Disclaimer: Readers are advised that decisions regarding drug therapy must be based on the independent judgment of the clinician, changing information about a drug (eg, as reflected in the literature and industrial technology teacher's most current product information), and changing medical practices. * Terms & Conditions // * Disclaimer// * Privacy Policy * Lexicomp on Multifonds * Perpetual Technologies[employer]omp on [employer] Software * Get Adobe [place] 2018 [employer] and its affiliates and/or licensors. All Rights Reserved. * Top of Form 1 * Bottom of Form 1 Pneumococcal Vaccine HX Pneumo Vac (Eorrqrb76): Yes (2017) HX Pneumo Vac (Pneumovax): Yes (2016) Comments Regarding the Review Patient is up to date with his pneumococcal vaccines; refuses flu vaccine due to a reaction in the past. Labs: periodic LFTs, serum uric acid levels, hepatic and renal function tests; ALFRED DOMINGUEZ May 06, 2018 16:49
[2018-05-06 19:46] VITALS: BP 144/76
[2018-05-06] MEDS: SIMVASTATIN 20 MG TAB PO SCH (20:31)
[2018-05-06] MEDS: MIRTAZAPINE 15 MG TAB PO SCH (20:31)
[2018-05-06] MEDS: ACETAMINOPHEN 500 MG TAB PO PRN (20:31)
[2018-05-06] MEDS: METOPROLOL TART 50 MG TAB PO SCH (20:31)
[2018-05-06] MEDS: DOCUSATE SODIUM 100 MG CAP PO SCH (20:31)
[2018-05-07 06:05] LABS: PLATELET COUNT, AUTOMATED 304 K/uL (150-450)
[2018-05-07 08:15] VITALS: BP 144/89
[2018-05-07] MEDS: DOCUSATE SODIUM 100 MG CAP PO SCH ×2 (09:00→21:00)
[2018-05-07] MEDS: ASCORBIC ACID 500 MG TAB PO SCH (09:08)
[2018-05-07] MEDS: FINASTERIDE 5 MG TAB PO SCH (09:08)
[2018-05-07] MEDS: CALCIUM CARBONATE/VITAMIN D3 PO SCH (09:08)
[2018-05-07] MEDS: METOPROLOL TART 50 MG TAB PO SCH ×2 (09:09→21:19)
[2018-05-07] MEDS: ENOXAPARIN 30 MG/0.3 ML SYR SC SCH (09:09)
[2018-05-07] MEDS: FOLIC ACID/CYANOCOB/PYRIDOXINE PO SCH (09:09)
[2018-05-07] MEDS: TAMSULOSIN HCL 0.4 MG CAP PO SCH (09:09)
[2018-05-07] MEDS: ASPIRIN 81 MG ENTERIC COATED PO SCH (09:09)
[2018-05-07] MEDS: FOLIC ACID 1 MG TAB PO SCH (09:09)
[2018-05-07 09:30] VITALS: BP 86/59
[2018-05-07 09:59] VITALS: BP 137/76
[2018-05-07] MEDS: ALLOPURINOL 300 MG TAB PO SCH (12:40)
--- NOTE | 2018-05-07 15:23 | Medical Nutrition Therapy ---
Nutrition Anthropometrics Height (Inches): 78 Height (Calculated Centimeters: 167.819133 Weight (Pounds): 135 Weight (Calculated Kilograms): 61.235 BMI: 15.5 Josué Nutrition Score: Josué Nutrition Risk Score: Dietary Referral Nutrition Risk Factors: Unplanned Loss >10lbs Nutrition Risk Comment: Removed part of stomach Physical Findings Physical Appearance: Underweight BMI<19 Skin Appearance Skin Appearance: Edema Edema Location Modifier: Edema Location: Type of Edema: Degree of Edema: Gastrointestinal Symptoms GI Symtoms: Change in Bowel Pattern Tube Present: Bowel Sounds: Recent Bowel Pattern: Stool Characteristics: Nutritional Diagnosis Nutritional Risk Acuity 1: Malnutrition Nutritional Risk Acuity 2: Swallowing Problem Past Medical History: HTN, CKD-III, CAD , Nephrolithiasis, PUD, Dyslipidemia, Osteoarthritis, Gout and Throat Cancer HX of [place], Hyperlipidemia, COPD, ulcer disease with part of stomach removed, Head and neck cancer, vagotomy, jejunostomy, ACL repair, elbow surgery Nutritional Acuity: 1-High Nutrition Diagnosis: Under-weight Nutrition Etiology: Physiological Causes Nutrition Problem/Etiology/Sym: Underwt r/t hx head/neck Ca with BMI 15.5 Energy Requirement: 2450 (M- StJ + 500 kcal for wt gain) Protein Requirement: 79 (1.3mg/kg) Fluid Requirement: 1860 (30ml/kg) Diet Type: Dysphagia Stage 3 Nutrition Intervention: Cont diet as ordered, Encourage intake, HS snack, Between meal supplement Additional Diet Restrictions: OFFER NUTR SUPPLMENT Diet Comment To RSA: ENCOURAGE HIGH PROTEIN, HIGH KCAL FOODS Nutritional Education Nutrition Education Topic: Other (DYSPHAGIA 3) Learning Readiness: Interested Teaching Methods: Discussion, Handout Response to Teaching: Verbalize understanding Teaching Recipient: Patient Nutrition Counseling: Reviewed dysphagia 3 diet. Encouraged pt to chew well and inform dietary if there are foods he is having issues with. Nutrition Monitoring & Eval Nutrition Goals: Eat 75-100% Meal RD Patient Assessment Time: [address] Assessment Type: RD Assessment Patient Nutrition Acuity: 1-High Follow Up Date: May 12, 2018 Nutritional Comment: 05/07 Pt admitted for stenghtening post SBO and illeus. Wt was 148# on 03/28/18. Current wt of 135% is a 8.7% wt loss/ 5 wks. Pt eating 25-75% of meals. Offering nutr supplment and pt has been drinking them. Will encourage kcal dense foods to encourage wt gain. Pt has been underwt for several years. Pt weighed 160# in 2008 prior to dx of CA. Since then wt has been in 130-140's. Pt is interested in gaining back to 145#. Alb low at 2.5. Will cont to monitor and encourage intake. TAMI BACK May 07, 2018 11:40
[2018-05-07 15:42] VITALS: BP 144/78
[2018-05-07] MEDS: ACETAMINOPHEN 500 MG TAB PO PRN (21:19)
[2018-05-07] MEDS: MIRTAZAPINE 15 MG TAB PO SCH (21:19)
[2018-05-07] MEDS: SIMVASTATIN 20 MG TAB PO SCH (21:19)
[2018-05-08 08:00] VITALS: BP 164/87
[2018-05-08] MEDS: DOCUSATE SODIUM 100 MG CAP PO SCH ×3 (08:30→20:25)
[2018-05-08] MEDS: CALCIUM CARBONATE/VITAMIN D3 PO SCH (08:30)
[2018-05-08] MEDS: FOLIC ACID/CYANOCOB/PYRIDOXINE PO SCH (08:30)
[2018-05-08] MEDS: METOPROLOL TART 50 MG TAB PO SCH ×2 (08:30→20:26)
[2018-05-08] MEDS: TAMSULOSIN HCL 0.4 MG CAP PO SCH (08:30)
[2018-05-08] MEDS: FINASTERIDE 5 MG TAB PO SCH (08:30)
[2018-05-08] MEDS: ASPIRIN 81 MG ENTERIC COATED PO SCH (08:30)
[2018-05-08] MEDS: ENOXAPARIN 30 MG/0.3 ML SYR SC SCH (08:30)
[2018-05-08] MEDS: FOLIC ACID 1 MG TAB PO SCH (08:30)
[2018-05-08] MEDS: ASCORBIC ACID 500 MG TAB PO SCH (08:30)
--- NOTE | 2018-05-08 09:37 | PT ECF NOTE ---
Type of Note: Initial Note Primary Medical Diagnosis: s/p sx for SBO on 04/28/18; weakness Physical Therapy Evaluation Date: 05/06/18 SUBJECTIVE: Prior Hospitalization: [facility] for SBO DOS: 04/28/18 Prior Level of Function: Pt reports independence with functional mobility within his home and Mod I functional mobility with "walking stick" for community distances. Pt reports a "handicap" home with a ramp to enter and grab bars. Prior Living Status: Single level house, Spouse, Assist by family Community Services: No known needs Home Accessibility: Ramp, All needs on one level, Walk-in shower Equipment Owned: Front wheeled walker, Toilet riser, Tub/shower chair, Wheelchair Medical Complications/Past Medical History: Extensive, please see EMR Psychosocial Support: Supportive but she cannot assist Pt physically. Pain Scale (0-10): none reported at time of eval. OBJECTIVE: ROM: (please note any abnormalities) significant thoracic kyphosis and neck flexion noted. Bed Mobility: not observed a time of eval. Transfers: [facility] Assistive Device: Front wheeled walker Gait: CGA x20' Assistive device: Front wheeled walker Timed Up and Go (>12 seconds indicated increased risk for falls): Pt be measured next visit, please see treatment note. ASSESSMENT: Pt presents with decreased strength and independence with functional mobility compared to prior level of function which was Independent/Mod I. Pt will benefit from skilled PT for strengthening, functional mobility training, and endurance training in order to meet energy demands of ADLs. Problem List/Current Limitations: Decreased activity tolerated, Decreased strength, Generalized weakness, Poor trunk/head control Short Term Goals: 1. Pt to complete transfers sit to stand MOD I/Independent. 2. Pt to be able to ambulate 150' w/ least restrictive assistive device/Modified I. 3. Pt performed bed mobility Mod I. 4. Improve TUG by 2 seconds. Retail District Manager Goals: Return home. Patient Goals: Return home Rehabilitation Prognosis: Good Barriers for Discharge: none identified PLAN: The patient will benefit from skilled physical therapy services 5 times per week for 2 weeks including: Therapeutic Exercise, Therapeutic Activities, Transfer Training, Gait Training, Stair Training, Manual Therapy, ADL's, Safety Training, Neuromuscular Re-educ., Wound Care, Pt/Caregiver, Training, Bed Mobility Thank you for this referral. If you have any questions, concerns, or comments about this report or plan, please contact me at . Nadiya Lei, PT, DPT, GCS MTDD
[2018-05-08] MEDS: ALLOPURINOL 300 MG TAB PO SCH (12:30)
[2018-05-08 15:57] VITALS: BP 154/82
[2018-05-08] MEDS: MIRTAZAPINE 15 MG TAB PO SCH (20:26)
[2018-05-08] MEDS: SIMVASTATIN 20 MG TAB PO SCH (20:26)
[2018-05-09 08:00] VITALS: BP 166/94
[2018-05-09] MEDS: DOCUSATE SODIUM 100 MG CAP PO SCH ×2 (09:00→21:00)
[2018-05-09 09:24] VITALS: BP 148/80
[2018-05-09] MEDS: TAMSULOSIN HCL 0.4 MG CAP PO SCH (09:27)
[2018-05-09] MEDS: FINASTERIDE 5 MG TAB PO SCH (09:27)
[2018-05-09] MEDS: ASCORBIC ACID 500 MG TAB PO SCH (09:27)
[2018-05-09] MEDS: FOLIC ACID 1 MG TAB PO SCH (09:27)
[2018-05-09] MEDS: CALCIUM CARBONATE/VITAMIN D3 PO SCH (09:27)
[2018-05-09] MEDS: ASPIRIN 81 MG ENTERIC COATED PO SCH (09:27)
[2018-05-09] MEDS: METOPROLOL TART 50 MG TAB PO SCH ×2 (09:27→21:16)
[2018-05-09] MEDS: FOLIC ACID/CYANOCOB/PYRIDOXINE PO SCH (09:27)
--- NOTE | 2018-05-09 11:04 | RADIOLOGY IMAGING REPORT ---
FACILITY: [facility] PATIENT NAME: José Miguel Lara : 1945 MR: [id number] V: [id number] EXAM DATE: ORDERING PHYSICIAN: LEONILA LITTLE TECHNOLOGIST: Location: [facility] Patient: José Miguel Lara : 1945 Visit/Account:[id number] Date of Sevice: 05/09/2018 Portable chest, one view. HISTORY: Shortness of breath, increased cough. COMPARISON: 04/27/2018. The heart size is normal. The thoracic aorta is mildly elongated and calcified. Right central pulmona ry vessels are slightly prominent, unchanged. The lungs are voluminous. Minimal pleural parenchymal s carring is present in the lung bases, unchanged. Interstitial markings are mildly thickened bilateral ly. A few vascular calcifications are present in the upper chest. No acute bony abnormalities. IMPRESSION: COPD. Atherosclerosis. Otherwise no evidence of acute cardiopulmonary disease. Report Dictated By: Bk Valero MD at 05/09/2018 10:57 AM Report E-Signed By: Bk Valero MD at 05/09/2018 11:00 AM WSN:[id number]
[2018-05-09 11:26] LABS: PLATELET COUNT, AUTOMATED 368 K/uL (150-450)
[2018-05-09] MEDS: ALLOPURINOL 300 MG TAB PO SCH (13:06)
[2018-05-09 15:37] VITALS: BP 152/87
[2018-05-09] MEDS: ACETAMINOPHEN 500 MG TAB PO PRN (15:40)
[2018-05-09] MEDS: SIMVASTATIN 20 MG TAB PO SCH (21:16)
[2018-05-09] MEDS: MIRTAZAPINE 15 MG TAB PO SCH (21:16)
[2018-05-10 07:20] VITALS: BP 173/92
[2018-05-10] MEDS: FOLIC ACID 1 MG TAB PO SCH (08:53)
[2018-05-10] MEDS: DOCUSATE SODIUM 100 MG CAP PO SCH ×2 (08:54→21:00)
[2018-05-10] MEDS: FOLIC ACID/CYANOCOB/PYRIDOXINE PO SCH (08:54)
[2018-05-10] MEDS: TAMSULOSIN HCL 0.4 MG CAP PO SCH (08:54)
[2018-05-10] MEDS: METOPROLOL TART 50 MG TAB PO SCH ×2 (08:54→21:27)
[2018-05-10] MEDS: ASCORBIC ACID 500 MG TAB PO SCH (08:54)
[2018-05-10] MEDS: FINASTERIDE 5 MG TAB PO SCH (08:54)
[2018-05-10] MEDS: ASPIRIN 81 MG ENTERIC COATED PO SCH (08:54)
[2018-05-10] MEDS: CALCIUM CARBONATE/VITAMIN D3 PO SCH (08:55)
[2018-05-10] MEDS: ACETAMINOPHEN 500 MG TAB PO PRN (08:57)
[2018-05-10] MEDS: ALLOPURINOL 300 MG TAB PO SCH (12:43)
[2018-05-10 15:10] VITALS: BP 142/85
[2018-05-10] MEDS: MIRTAZAPINE 15 MG TAB PO SCH (21:27)
[2018-05-10] MEDS: SIMVASTATIN 20 MG TAB PO SCH (21:27)
[2018-05-11 07:30] VITALS: BP 166/91
[2018-05-11] MEDS: DOCUSATE SODIUM 100 MG CAP PO SCH ×3 (09:00→21:00)
[2018-05-11] MEDS: CALCIUM CARBONATE/VITAMIN D3 PO SCH (09:03)
[2018-05-11] MEDS: METOPROLOL TART 50 MG TAB PO SCH ×2 (09:03→21:26)
[2018-05-11] MEDS: ACETAMINOPHEN 500 MG TAB PO PRN ×2 (09:03→22:45)
[2018-05-11] MEDS: ASCORBIC ACID 500 MG TAB PO SCH (09:03)
[2018-05-11] MEDS: TAMSULOSIN HCL 0.4 MG CAP PO SCH (09:04)
[2018-05-11] MEDS: FOLIC ACID/CYANOCOB/PYRIDOXINE PO SCH (09:04)
[2018-05-11] MEDS: ASPIRIN 81 MG ENTERIC COATED PO SCH (09:04)
[2018-05-11] MEDS: FINASTERIDE 5 MG TAB PO SCH (09:04)
[2018-05-11] MEDS: FOLIC ACID 1 MG TAB PO SCH (09:04)
[2018-05-11] MEDS ORDERED: LOPERAMIDE HCL 2 MG CAP PO PRN (10:10)
[2018-05-11] MEDS: ALLOPURINOL 300 MG TAB PO SCH (12:26)
[2018-05-11] MEDS: SIMVASTATIN 20 MG TAB PO SCH (21:26)
[2018-05-11] MEDS: MIRTAZAPINE 15 MG TAB PO SCH (21:26)
[2018-05-12 07:41] VITALS: BP 153/76
[2018-05-12] MEDS: CALCIUM CARBONATE/VITAMIN D3 PO SCH (08:30)
[2018-05-12] MEDS: ASCORBIC ACID 500 MG TAB PO SCH (08:31)
[2018-05-12] MEDS: TAMSULOSIN HCL 0.4 MG CAP PO SCH (08:31)
[2018-05-12] MEDS: METOPROLOL TART 50 MG TAB PO SCH ×2 (08:31→20:58)
[2018-05-12] MEDS: FOLIC ACID 1 MG TAB PO SCH (08:31)
[2018-05-12] MEDS: FOLIC ACID/CYANOCOB/PYRIDOXINE PO SCH (08:31)
[2018-05-12] MEDS: FINASTERIDE 5 MG TAB PO SCH (08:31)
[2018-05-12] MEDS: ASPIRIN 81 MG ENTERIC COATED PO SCH (08:31)
[2018-05-12] MEDS: DOCUSATE SODIUM 100 MG CAP PO SCH ×4 (08:44→20:59)
[2018-05-12] MEDS: ALLOPURINOL 300 MG TAB PO SCH (12:00)
--- NOTE | 2018-05-12 12:42 | Medical Nutrition Therapy ---
Nutrition Anthropometrics Height (Inches): 78 Height (Calculated Centimeters: [phone] Weight (Pounds): 135 Weight (Calculated Kilograms): 61.235 BMI: 15.5 Josué Nutrition Score: Josué Nutrition Risk Score: Dietary Referral Nutrition Risk Factors: Unplanned Loss >10lbs Nutrition Risk Comment: Removed part of stomach Nutritional Diagnosis Nutritional Risk Acuity 1: Malnutrition Nutritional Risk Acuity 2: Swallowing Problem Past Medical History: HTN, CKD-III, CAD , Nephrolithiasis, PUD, Dyslipidemia, Osteoarthritis, Gout and Throat Cancer HX of NH, Hyperlipidemia, COPD, ulcer disease with part of stomach removed, Head and neck cancer, vagotomy, jejunostomy, ACL repair, elbow surgery Nutritional Acuity: 1-High Nutrition Diagnosis: Under-weight Nutrition Etiology: Physiological Causes Nutrition Problem/Etiology/Sym: Underwt r/t hx head/neck Ca with BMI 15.5 Energy Requirement: 2450 (M- StJ + 500 kcal for wt gain) Protein Requirement: 79 (1.3mg/kg) Fluid Requirement: 1860 (30ml/kg) Diet Type: Dysphagia Stage 3 Nutrition Intervention: Cont diet as ordered, Encourage intake, HS snack, Between meal supplement Food Likes: ensure clear apple Food Dislikes: boost Additional Diet Restrictions: OFFER NUTR SUPPLMENT Diet Comment To RSA: ENCOURAGE HIGH PROTEIN, HIGH KCAL FOODS Nutrition Monitoring & Eval Nutrition Goals: Eat 75-100% Meal, Drink > 1500 cc/day Nutrition Follow-Up: Fair Intake, Poor Intake RD Patient Assessment Time: [address] Assessment Type: RD Re-Assessment Patient Nutrition Acuity: 1-High Follow Up Date: May 19, 2018 Nutritional Comment: 05/07 Pt admitted for stenghtening post SBO and illeus. Wt was 148# on 03/28/18. Current wt of 135% is a 8.7% wt loss/ 5 wks. Pt eating 25-75% of meals. Offering nutr supplment and pt has been drinking them. Will encourage kcal dense foods to encourage wt gain. Pt has been underwt for several years. Pt weighed 160# in 2008 prior to dx of CA. Since then wt has been in 130-140's. Pt is interested in gaining back to 145#. Alb low at 2.5. Will cont to monitor and encourage intake. BK 05/12 Pt admitted for strengthening. Pt on dysphagia 3 diet, Pt has been eating 50-100% of small protion aieht meat ordered only 40% of the time and a supplement consumed 20% of the time. Will talk with pt and encourage increased intake and taking a supplment especially if he doens't want a high protein food. Will try to get more pt likes/dislikes. No new wt. Creatinine 1.4, hgb 9.5, Hct 29.2. Will cont to monitor and encourage intake. TAMI BACK May 12, 2018 10:31
[2018-05-12] MEDS: ACETAMINOPHEN 500 MG TAB PO PRN (16:20)
[2018-05-12 16:29] VITALS: BP 150/82
[2018-05-12] MEDS: MIRTAZAPINE 15 MG TAB PO SCH (20:58)
[2018-05-12] MEDS: SIMVASTATIN 20 MG TAB PO SCH (20:58)
[2018-05-13] MEDS ORDERED: ASCO-182 PO (08:00)
--- NOTE | 2018-05-13 08:09 | Hospitalist Depart ---
Discharge Summary Reason for Hosp/Final Diag: (1) Volvulus of intestine Status: Acute Hospital Course & Plan: The patient was hospitalized at [facility] for treatment of a volvulus. This was surgically repaired and he was transferred to [facility] for rehabilitation. He was weak upon arrival to [facility] but yosi enrique well. He worked with physical and occupational therapy. The patient's mahogany were removed the day of discharge and his wound appeared to be healing well. (2) Hypertension Status: Chronic Hospital Course & Plan: He was continued on metoprolol. BPs were elevated at times. He will need to follow up with his primary care provider for ongoing medication adjustment. 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 (4) CKD (chronic kidney disease) Status: Chronic Hospital Course & Plan: His creatinine was 1.4 at discharge. This appears to be his baseline. (5) Malnutrition Status: Chronic Hospital Course & Plan: The lock tender chief operator worked with the patient to improve his nutrition while on ECF. (6) COPD (chronic obstructive pulmonary disease) Status: Chronic Hospital Course & Plan: He was continued on supplemental oxygen as needed. He did not require any other respiratory treatments. (7) Gout Status: Chronic Hospital Course & Plan: He was continued on allopurinol. Departure Weight (Pounds): 135 Weight (Ounces): 1.0 Result Diagram: 05/10/18 0727 05/09/18 1024 Condition: Improved Discharge: Home, Self Care Time Spent: < 30 min Discharge Instructions Home Meds Active Scripts Ascorbic Acid (VITAMIN C) 500 Mg Tablet, 500 MG PO QDAY, #60 TAB Prov:ALFRED LITTLE MD 05/13/18 Metoprolol Tartrate (METOPROLOL TARTRATE) 50 Mg Tab, 50 MG PO BID, #60 TAB Prov:NAT ALEJO 04/03/18 Ergocalciferol (Vitamin D2) (VITAMIN D2) 50,000 Unit Capsule, 83453 UNIT PO weekly for 120 Days, #12 CAPSULE Prov:JASON BARBOZA QUENCHING MACHINE OPERATOR-BC, ONC 1/30/18 Folic Acid (FOLIC ACID) 1 Mg Tablet, 1 MG PO QDAY, #90 TAB 3 Refills Prov:JASON BARBOZA QUENCHING MACHINE OPERATOR-BC, ONC 06/09/17 Reported Medications Potassium Bicarbonate/Cit Ac (KLOR-CON-EF 25 MEQ TAB EFF) 25 Meq Tablet.eff, 20 MEQ PO DAILY 05/13/18 Vitamin B Complex (B COMPLEX) 1 Each Tablet, 1 EACH PO BID 03/18/18 Acetaminophen 500 Mg Tab (ACETAMINOPHEN EXTRA STRENGTH) 500 Mg Tablet, 500 MG PO Q6-8H PRN for PAIN, TAB 03/18/18 Mirtazapine (MIRTAZAPINE) 15 Mg Tab.rapdis, 15 MG PO QDAY 03/18/18 Aspirin (ASPIRIN) 81 Mg Tab.chew, 81 MG PO QDAY, TAB.CHEW 03/18/18 Simvastatin (SIMVASTATIN) 20 Mg Tablet, 20 MG PO HS, TAB 06/22/17 Allopurinol (ZYLOPRIM) 300 Mg Tablet, 300 MG PO QDAY, TAB 03/29/16 Finasteride (FINASTERIDE) 5 Mg Tablet, 5 MG PO QDAY 04/27/14 Tamsulosin Hcl (Flomax) 0.4 Mg Cap.sr.24h, 0.4 MG PO DAILY 03/14/12 Discontinued Reported Medications Hydrocodone Bit/Acetaminophen (NORCO 5-325 TABLET) 1 Each Tablet, 1-2 TAB PO Q6H PRN for PAIN, #30 TAB 03/27/18 Oxybutynin Chloride (DITROPAN XL) 5 Mg Tab.er.24, 5 MG PO QDAY PRN for SPASMS, #10 TAB 03/27/18 Phenazopyridine Hcl (PHENAZOPYRIDINE HCL) 200 Mg Tablet, 200 MG PO TID PRN for SPASMS, #30 TAB 03/27/18 Diet: Regular Activity: As Tolerated Special Instructions: The patient is to follow up with Dr. Emerson Gallego in 1-2 weeks. He is to call to schedule that appt. Copies to: KRISTEN SIERRA DO ; Venous Thromboembolism Antithrombotics Is Pt On Any Antithrombotics?: Yes ALFRED LITTLE MD May 13, 2018 08:09
--- NOTE | 2018-05-13 08:13 | OT ECF NOTE ---
Type of Note: Discharge Note Primary Medical Diagnosis: Generalized weakness s/p hospital admission for small bowel volvulus with repair 04/28/18. At [facility] 04/27/18 thru 05/06/18. Occupational Therapy Evaluation Date: 05/06/18 SUBJECTIVE: Prior Hospitalization: [facility] 04/27/18 thru 05/06/18. Please refer to EMR for detailed listing of recent hospitalizations. Prior Level of Function: Modified Independent for ADLs and IADLs. Spouse is wheelchair dependent and pt reports they "work as a team" for IADLs. Pt utilizes the electric scooter when at grocery store and family assists with going to post office when needed. Prior Living Status: Single level house Spouse Assist by family Community Services: No known needs Home Accessibility: Ramp All needs on one level Walk-in shower Equipment Owned: Front wheeled walker Toilet riser Tub/shower chair Wheelchair Medical Complications/Past Medical History: Please refer to EMR Psychosocial Support: Supportive spouse and stepson in [place] Pain Scale (0-10): No report of pain at time of evaluation OBJECTIVE: Strength: MMT: Right Left Shoulder Flexion WFL WFL Elbow Flexion WFL WFL Wrist Extension WFL WFL Drag Out Man WFL WFL (5= normal, 4= good, 3= fair, 2= poor, 1= trace) ROM: Both upper extremities, WFL Sensation: No concerns Functional Transfer: Assistive Device: RW Transfer Ability: Modified Independent ADL: Upper body dressing: Assistive device: None Upper body dressing ability: Independent Lower body dressing: Assistive device: None Lower body dressing ability: Independent Toileting: Assistive device: None Toileting ability: Independent Grooming/hygiene: Assistive device: Standing Grooming ability: Independent Bathing: Assistive device: Shower chair Bathing ability: Modified Independent Standardized Assessment: Dominguez Index of Activities of Daily Livin/20 upon discharge (05/13/18). ASSESSMENT: José Miguel presented to [facility] with generalized weakness and decreased independence with ADLs/IADLs. He has met all skilled OT goals and reports no further questions or concerns with discharge home. Short Term Goals: 1) Pt will be Mod (I) UB/LB dressing. GOAL MET 2) Pt will be Mod (I) toilet task. GOAL MET 3) Pt will be Independent grooming standing/seated. GOAL MET 4) Pt will be Mod (I) shower task. GOAL MET 5) Pt Dominguez Index of ADLs score will increase by 2 points. GOAL MET Care Home Goals: Return home with assist from family Patient Goals: "Walk more" Rehabilitation Prognosis: Good Barriers to Discharge: Medical hx PLAN: The patient will discharge home with assist from family. Pt declined HH or outpatient PT services. Reports knowledge for how to obtain services if desired. Pt with no further questions/concerns at time of discharge from OT. Thank you for this referral. If you have any questions, concerns, or comments about this report or plan, please contact me at . Sandy Abebe MS, OTR/L Occupational Therapist [facility]FF[facility]
[2018-05-13 08:15] VITALS: BP 134/89
[2018-05-13] MEDS ORDERED: POTA25TA PO (08:15)
[2018-05-13] MEDS: ASCORBIC ACID 500 MG TAB PO SCH (09:11)
[2018-05-13] MEDS: TAMSULOSIN HCL 0.4 MG CAP PO SCH (09:12)
[2018-05-13] MEDS: CALCIUM CARBONATE/VITAMIN D3 PO SCH (09:12)
[2018-05-13] MEDS: METOPROLOL TART 50 MG TAB PO SCH (09:12)
[2018-05-13] MEDS: FOLIC ACID/CYANOCOB/PYRIDOXINE PO SCH (09:12)
[2018-05-13] MEDS: FINASTERIDE 5 MG TAB PO SCH (09:12)
[2018-05-13] MEDS: ASPIRIN 81 MG ENTERIC COATED PO SCH (09:12)
[2018-05-13] MEDS: FOLIC ACID 1 MG TAB PO SCH (09:12)
[2018-05-13] MEDS: ALLOPURINOL 300 MG TAB PO SCH (13:11)
--- NOTE | 2018-05-18 12:34 | PT ECF NOTE ---
Type of Note: Discharge Note Primary Medical Diagnosis: s/p sx for SBO on 04/28/18; weakness Physical Therapy Evaluation Date: 05/06/18 SUBJECTIVE: Prior Hospitalization: [facility] for SBO DOS: 04/28/18 Prior Level of Function: Pt reports independence with functional mobility within his home and Mod I functional mobility with "walking stick" for community distances. Pt reports a "handicap" home with a ramp to enter and grab bars. Prior Living Status: Single level house, Spouse, Assist by family Community Services: No known needs Home Accessibility: Ramp, All needs on one level, Walk-in shower Equipment Owned: Front wheeled walker, Toilet riser, Tub/shower chair, Wheelchair Medical Complications/Past Medical History: Extensive, please see EMR Psychosocial Support: Supportive but she cannot assist Pt physically. Pain Scale (0-10): none reported at time of eval. OBJECTIVE: ROM: (please note any abnormalities) significant thoracic kyphosis and neck flexion noted. Bed Mobility: Modified indep Transfers: Modified indep Assistive Device: None Gait: Modified indep x 450' Assistive device: none Timed Up and Go (>12 seconds indicated increased risk for falls): 29.89 seconds. ASSESSMENT: Pt demonstrates Modified indep with ADL's without assistive device and tolerates household distance mobility. Problem List/Current Limitations: Poor trunk/head control with chronic kyphosis Short Term Goals: (Met) 1. Pt to complete transfers sit to stand MOD I/Independent. 2. Pt to be able to ambulate 150' w/ least restrictive assistive device/Modified I. 3. Pt performed bed mobility Mod I. 4. Improve TUG by 2 seconds. Welfare Project Manager Goals: Return home. Patient Goals: Return home Rehabilitation Prognosis: Good Barriers for Discharge: none identified PLAN: Pt discharged home without further rehab per pt request. Pt notes that he feels confident to return to [facility] with ADL's and IADL's safely. Thank you for this referral. If you have any questions, concerns, or comments about this report or plan, please contact me at h. Zuly Braga, PT, MPT, OMS MTDD
== END 2018-05-13 14:10 | disposition home or self-care (01) | DRG 949 ==
LOC: ECF 12:05
PROVIDERS: ADMIT Internal Medicine; ATTEND Internal Medicine
DX: Z48.815 Encounter for surgical aftercare following surgery on the digestive system (principal); E46 Unspecified protein-calorie malnutrition; Z68.1 Body mass index [BMI] 19.9 or less, adult; R53.1 Weakness; I12.9 Hypertensive chronic kidney disease with stage 1 through stage 4 chronic kidney disease, or unspecified chronic kidney disease; N18.9 Chronic kidney disease, unspecified; J44.9 Chronic obstructive pulmonary disease, unspecified; M1A.9XX0 Chronic gout, unspecified, without tophus (tophi); E55.9 Vitamin D deficiency, unspecified; M81.0 Age-related osteoporosis without current pathological fracture; I25.10 Atherosclerotic heart disease of native coronary artery without angina pectoris; E78.5 Hyperlipidemia, unspecified; Z85.21 Personal history of malignant neoplasm of larynx
CPT/HCPCS: 36415; 71045; 82040; 82247; 82310; 82374; 82435; 82565; 82947; 84075; 84132; 84155; 84295; 84450; 84460; 84520; 85014; 85018; 85025; 87324; 87449; 97161; 97166; J1650

== ENCOUNTER 2018-06-01 15:06 | Observation (INO) | payer MEDICARE, BC ==
[~2018-06-01] VITALS: Ht 198.1 cm; Wt 59.0 kg
[2018-06-01] VITALS (11 sets, daily range): BP systolic 136–186; BP diastolic 71–94
[~2018-06-01 15:06] MED LIST changes: +ASCO-182 PO; +POTA25TA PO
[2018-06-01] MEDS ORDERED: NORMOSOL R SOLN(*) 1000 ML BAG 1,000 ML IV PRN (15:25)
[2018-06-01] MEDS ORDERED: MIDAZOLAM 2 MG/2 ML VIAL IVP PRN (15:25)
[2018-06-01] MEDS ORDERED: LIDOCAINE/SOD BICARB 8.4% SYR ID ONE (15:25)
[2018-06-01] MEDS ORDERED: FAMOTIDINE 20 MG/50 ML PREMIX IVPB ONE (15:25)
[2018-06-01] MEDS ORDERED: IOPAMIDOL-200 50 ML VIAL IS ONE (15:36)
[2018-06-01] MEDS ORDERED: LEVOFLOXACIN/D5W*500 MG/100 ML 100 ML IVPB ONE (16:20)
[2018-06-01] MEDS ORDERED: BELLADONNA ALK/OPIUM 60MG SUPP PR ONE (16:39)
[2018-06-01] MEDS ORDERED: fentaNYL CITR 100 MCG/2 ML AMP ONE ×2 (17:35→18:12)
--- NOTE | 2018-06-01 18:00 | RADIOLOGY IMAGING REPORT ---
FACILITY: [facility] PATIENT NAME: José Miguel Lara : 1945 MR: [id number] V: [id number] EXAM DATE: ORDERING PHYSICIAN: ELISHA DOHERTY TECHNOLOGIST: Location: [facility] Patient: José Miguel Laar : 1945 Visit/Account:[id number] Date of Sevice: 06/01/2018 ABDOMEN PELVIS ESWL CYSTO W/O HISTORY: preop TECHNIQUE: Axial images acquired through the abdomen/pelvis. Coronal and sagittal reformatting also performed. No IV contrast administered.Dose Lowering Technique One of the following dose optimization techniques was utilized in the performance of this exam: Autom ated exposure control; adjustment of the mA and/or kV according to the patient's size; or use of an i terative reconstruction technique. Specific details can be referenced in the facility's radiology C T exam operational policy. COMPARISON: April 27, 2018 FINDINGS: Visualized lung bases: There is a small right pleural effusion that appears partially decreased. Th ere is a slight increase in the bibasilar atelectasis Hepatobiliary: The liver is incompletely imaged as examination was tailored towards the urinary trac t. There is cholelithiasis present there is a 4 mm calcification at the head the pancreas that appea rs to be within the distal common bile duct although no evidence of biliary ductal dilatation Spleen: Negative. Adrenals: There is mild thickening the adrenal glands Pancreas: Negative. Kidneys ureters and bladder: Subcapsular hematoma on the right is further decrease in size now measur ing 3.6 x 1.6 cm as opposed to 5.3 x 2.1 cm. Right ureteral stent remains in good position. Numerou s calcifications are identified in both kidneys. At least some of these appear to be vascular in karissa ology . Bladder is decompressed therefore not ideally evaluated. The bladder wall appears thickene d Genitalia: Prostate gland is enlarged impinging upon the floor the bladder GI: Since the previous study there has been resolution of the mesenteric volvulus. There is diverti culosis of the left-sided colon although no CT evidence of acute diverticulitis. There is a moderate amount of fecal material in the colon which can be seen with constipation Vessels/spaces/nodes: Extensive vascular calcifications throughout the abdominal aorta and branch ve ssels. This includes extensive calcifications within the left renal artery Bones/soft tissues: Extensive dextroconvex scoliosis of the lumbar spine with associated spondylotic changes are postoperative changes of both hip joints Additional findings: None pertinent. IMPRESSION: Since the previous study there has been resolution of the mesenteric volvulus. The subcapsular hematoma the right kidney is further decreasing in size as described above. The righ t ureteral stent remains in good position There are numerous calcifications in both kidneys. At least some of these appear to be vascular in e tiology. Extensive vascular calcifications as described Small right pleural effusion appears partially decreased. There is a slight increase in the bibasila r atelectasis. Additional chronic findings as described Report Dictated By: Agnes Escobar MD at 06/01/2018 5:45 PM Report E-Signed By: Agnes Escobar MD at 06/01/2018 5:56 PM WSN:[id number]
[2018-06-01] MEDS ORDERED: MAG HYD/AL HYD/SIMETH 30ML UDC PO PRN (18:15)
[2018-06-01] MEDS ORDERED: NS 0.9% 3000 ML IRRIGATION BAG 3,000 ML IR PRN (18:15)
[2018-06-01] MEDS ORDERED: NS(*) 0.9% 1000 ML BAG 1,000 ML IV PRN (18:15)
[2018-06-01] MEDS ORDERED: PHENAZOPYRIDINE 200 MG TAB PO PRN (18:15)
[2018-06-01] MEDS ORDERED: ZOLPIDEM TARTRATE 5 MG TAB PO PRN (18:15)
[2018-06-01] MEDS ORDERED: BELLADONNA ALK/OPIUM 60MG SUPP PR PRN (18:15)
--- NOTE | 2018-06-01 19:36 | RADIOLOGY IMAGING REPORT ---
FACILITY: [facility] PATIENT NAME: José Miguel Lara : 1945 MR: [id number] V: [id number] EXAM DATE: ORDERING PHYSICIAN: ELISHA DOHERTY TECHNOLOGIST: Location: [facility] [place] Patient: José Miguel Lara : 1945 Visit/Account:[id number] Date of Sevice: 06/01/2018 RETROGRADE PYELOGRAM Provided history: IMPACTED RIGHT URETERAL STENT Additional pertinent history: none COMPARISON STUDIES: CT 06/01/18 FINDINGS: Fluoroscopic views of the abdomen and pelvis demonstrate a dual pigtail right ureteral stent in ros ce followed by retrograde cannulation of the ureter via cystoscope. Injection of contrast reveals no rmal calyces without filling defect. There is abrupt termination ureter just above the UVJ. I think contrast is arriving in the bladder via the patent stent. No extravasation seen. IMPRESSION: Fluoroscopy and spot views during right-sided retrograde pyelogram. 37 seconds of fluoroscopic time was used for the procedure. 15 images were obtained. Report Dictated By: Scott Muniz MD at 06/01/2018 7:25 PM Report E-Signed By: Scott Muniz MD at 06/01/2018 7:32 PM WSN:[id number]
[2018-06-01] MEDS: APAP/HYDROCODONE 325/5 TAB PO PRN (19:37)
[2018-06-01] MEDS: DOCUSATE SODIUM 100 MG CAP PO SCH (19:37)
--- NOTE | 2018-06-01 20:51 | Hospitalist Consultation ---
History of Present Illness Requesting Physician Dr. Henderson Reason for Consult Hypertension History of Present Illness This patient was admitted for ureteral stent removal. History Problems: (1) Gout attack Status: Acute (2) Hypokalemia (3) Systolic hypertension, isolated Status: Acute (4) Coronary artery disease Status: Chronic (5) SBO (small bowel obstruction) Status: Chronic (6) COPD (chronic obstructive pulmonary disease) Status: Chronic (7) Head and neck cancer Status: Chronic Home Meds Active Scripts Ascorbic Acid (VITAMIN C) 500 Mg Tablet, 500 MG PO QDAY, #60 TAB Prov:ALFRED LITTLE MD 05/13/18 Metoprolol Tartrate (METOPROLOL TARTRATE) 50 Mg Tab, 50 MG PO BID, #60 TAB Prov:NAT ALEJO MANAGEMENT TRAINER 04/03/18 Ergocalciferol (Vitamin D2) (VITAMIN D2) 50,000 Unit Capsule, 21350 UNIT PO weekly for 120 Days, #12 CAPSULE Prov:JASON BARBOZA MANAGEMENT TRAINER-BC, ONC 07/22/17 Folic Acid (FOLIC ACID) 1 Mg Tablet, 1 MG PO QDAY, #90 TAB 3 Refills Prov:JASON BARBOZA MANAGEMENT TRAINER-BC, ONC 06/09/17 Reported Medications Potassium Bicarbonate/Cit Ac (KLOR-CON-EF 25 MEQ TAB EFF) 25 Meq Tablet.eff, 20 MEQ PO DAILY 05/13/18 Vitamin B Complex (B COMPLEX) 1 Each Tablet, 1 EACH PO BID 03/18/18 Acetaminophen 500 Mg Tab (ACETAMINOPHEN EXTRA STRENGTH) 500 Mg Tablet, 500 MG PO Q6-8H PRN for PAIN, TAB 03/18/18 Mirtazapine (MIRTAZAPINE) 15 Mg Tab.rapdis, 15 MG PO QDAY 03/18/18 Aspirin (ASPIRIN) 81 Mg Tab.chew, 81 MG PO QDAY, TAB.CHEW 03/18/18 Simvastatin (SIMVASTATIN) 20 Mg Tablet, 20 MG PO HS, TAB 06/22/17 Allopurinol (ZYLOPRIM) 300 Mg Tablet, 300 MG PO QDAY, TAB 03/29/16 Finasteride (FINASTERIDE) 5 Mg Tablet, 5 MG PO QDAY 04/27/14 Tamsulosin Hcl (Flomax) 0.4 Mg Cap.sr.24h, 0.4 MG PO DAILY 03/14/12 Allergies: Coded Allergies: Penicillins (Verified Allergy, Mild, CAN'T REMEMBER, 03/28/18) latex (Verified Allergy, Mild, RASH, 03/28/18) Patient History: FH: cancer AUNT FH: leukemia GRANDFATHER FH: lung cancer FATHER, Onset:68 Hx Smoking: Yes Smoking Status: Former Smoker Exposure to Second Hand Smoke?: Yes Caffeine Intake: Soda Caffeine/Cups Per Day: rarely Hx Alcohol Use: Yes Hx Substance Use Disorder: Yes Social Drug Use: Occasional Social Drugs: Marijuana, LSD Review of Systems All Systems Reviewed/Normal: Yes Exam Vital Signs Vital Signs Date Time Temp Pulse Resp B/P (MAP) Pulse Ox O2 Delivery O2 Flow Rate FiO2 06/01/18 20:30 84 155/87 (109) 99 Nasal Cannula 0.5 06/01/18 18:49 97.6 16 Cardiovascular: Regular Rate and Rhythm Respiratory: Clear to Auscultation Assessment and Plan Problems: (1) Systolic hypertension, isolated Status: Acute Assessment & Plan: He is on chronic treatment with metoprolol. (2) Gout Status: Chronic Assessment & Plan: He is on chronic treatment with allopurinol. Central Venous Access Medical Necessity for Access: IV Access, Medication Administration Venous Thromboembolism Antithrombotics Is Pt On Any Antithrombotics?: No Exam Sepsis Risk: No Definite Risk HAMILTON ORTA DO Jun 01, 2018 20:51
[2018-06-01] MEDS ORDERED: SIMVASTATIN 20 MG TAB PO SCH (21:00)
[2018-06-01] MEDS: METOPROLOL TART 50 MG TAB PO SCH (21:53)
--- NOTE | 2018-06-01 22:33 | HISTORY AND PHYSICAL ---
DATE OF ADMISSION: June 01, 2018 CHIEF COMPLAINT Retained stent. HISTORY OF PRESENT ILLNESS Patient is a 73-year-old white male who is known to have bilateral kidney stones and underwent right stent placement followed by extracorporeal shockwave lithotripsy on 26 March. The patient developed a postoperative ileus, thought to be secondary to a mild right subcapsular hematoma. This subsequently resolved after several days of conservative therapy; however, in early April he developed a small bowel volvulus which required emergent transfer to the [facility], where he underwent exploratory laparotomy and repair of the volvulus. His postoperative course has been somewhat prolonged, and he has been unable to come in to the office for stent removal secondary to his deconditioned state. The patient was finally able to come in to the office today, which is more than two months following his stent placement. Local anesthetic and cystoscopy with lidocaine jelly with the flexible scope was performed in the office. The stent was noted to have a moderate amount of encrustation on it in the bladder. The stent was grasped with the forceps and removed approximately 75% of the way before a moderate amount of resistance was encountered. After several attempts at more manipulation, it was decided to abandon the procedure in the office and proceed in a more controlled environment in the operating room. Therefore, the stent, which had been removed down to the mid- urethra, was pushed back into the bladder, and the patient was transferred over to [facility] for planned anesthetic cystoscopy, retrograde pyelogram, and possible ureteroscopy as indicated to remove this encrusted right ureteral stent. PAST MEDICAL HISTORY 1. Squamous cell carcinoma of the larynx, 2008. 2. Myocardial infarction, 1996. 3. Hypertension. 4. Hyperlipidemia. 5. COPD. 6. Arthritis. 7. Peptic ulcer disease. 8. Gout. 9. Orthostatic hypotension. 10. BPH with history of incomplete bladder emptying. 11. Postoperative ileus following ESWL in March 2018. 12. 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 PAST SURGICAL HISTORY 1. Tracheostomy, 2008. 2. Truncal vagotomy and pyloroplasty, 2008. 3. Feeding tube jejunostomy, 2008. 4. Open reduction and internal fixation of right femoral neck fracture. 5. Right ACL repair. 6. Elbow surgery. 7. Closed hip fracture, 2016. 8. Cardiac stenting, 1996. 9. Right stent placement with extracorporeal shockwave lithotripsy, March 26, 2018. 10. Exploratory laparotomy with reduction of small bowel volvulus, April 28, 2018. CURRENT MEDICATIONS 1. Percocet. 2. Folic acid. 3. Allopurinol. 4. Colace. 5. [place]. 6. Vitamin D and calcium. 7. Simethicone. 8. Finasteride. 9. Flomax. 10. Simvastatin. 11. Aspirin. ALLERGIES PENICILLIN. FAMILY HISTORY Noncontributory. SOCIAL HISTORY Patient is and lives in [place]. He is currently retired and has a remote history of tobacco use. REVIEW OF SYSTEMS Patient denies chest pain, shortness of breath, nausea, vomiting, fever, chills, flank pain, productive cough, or gross hematuria prior to manipulation of stent. PHYSICAL EXAMINATION GENERAL: Patient is a well-developed, thin white male with significant kyphosis. HEENT: Normocephalic, atraumatic. CHEST: Clear to auscultation bilaterally. CARDIOVASCULAR: Regular rate and rhythm. ABDOMEN: Soft and nontender. No masses are palpated. GENITOURINARY: Deferred to the OR. EXTREMITIES: Without clubbing, cyanosis, or edema. NEUROLOGIC: Nonfocal. IMPRESSION A 73-year-old white male with bilateral kidney stones, who is status post right stent placement approximately 2-1/2 months ago, now with encrustation of the stent. We have tried unsuccessfully to remove the stent in the office. PLAN We will perform anesthetic cystoscopy with possible retrograde pyelogram, ureteroscopy as indicated, and attempt to remove his stent. He understands that he may have a second stent placed temporarily alongside the first one to allow for passive ureteral dilation in the short term. He also understands the possibility of ureteral injury with resulting ureteral stricturing or leakage, with possible need for percutaneous nephrostomy tube placement. JEFFREY
[2018-06-02] VITALS: BP 153/89
--- NOTE | 2018-06-02 01:27 | OPERATIVE REPORT 1 ---
EVENT DATE: June 01, 2018 SURGEON: Darien Henderson MD ANESTHESIOLOGIST: ANESTHESIA: General. PREOPERATIVE DIAGNOSIS Bilateral kidney stones with encrusted right double-J ureteral stent. POSTOPERATIVE DIAGNOSIS Bilateral kidney stones with encrusted right double-J ureteral stent. PROCEDURE PERFORMED 1. Cystoscopy. 2. Right retrograde pyelogram. 3. Right double-J stent removal. 4. Right double-J stent replacement. ESTIMATED BLOOD LOSS 10 mL. INTRAVENOUS FLUIDS Crystalloids. DRAINS 1. 20-Emirati three-way Erazo catheter. 2. 4.8 x 26 cm Percuflex Plus stent on the right, attached to string, taped to penile shaft. PATHOLOGY None. COMPLICATIONS None. CONDITION Patient taken to recovery room in awake and stable condition. STATEMENT OF MEDICAL NECESSITY Patient is a 73-year-old white male with a history of bilateral kidney stones, who underwent right stent placement followed by extracorporeal shockwave lithotripsy in early March. His postoperative course was complicated by an episode of adynamic ileus for several days, which he has subsequently resolved. Before his followup appointment to have his stent removed, he was again seen in the emergency room with abdominal pain and was found to have a small bowel volvulus, which required transfer to [place], where he underwent exploratory laparotomy with repair. Since this time, he has had a lorena postoperative course with prolonged recovery phase, and it was only today that the patient could make it in to the office for his stent removal. Attempted stent removal in the office revealed significant encrustation on the stent, and I was only able to remove it partway before significant resistance was encountered. I therefore pushed the stent back into the bladder and transferred the patient to [facility] for operative removal under anesthetic. DESCRIPTION OF PROCEDURE Patient was brought to the operating room, and after general anesthetic was obtained, he was placed in the dorsal lithotomy position and prepped and draped in the usual manner after his pressure points were padded. Anesthetic cystoscopy was performed with a 21-Emirati rigid Cervantes sheath and a 30-degree lens. The patient had a normal-appearing pendulous, bulbar, and membranous urethra. Upon entering his prostate, he had a mildly elevated bladder neck and a friable prostate at the bladder neck as well. The stent was seen emanating from the right ureteral orifice. Some of the stones which had previously been noted on the stent were free floating in the bladder. At this point, an open-ended Axxess catheter was advanced next to the stent in the distal ureter, and this was used to place a 0.035 angled-tip Glidewire, which advanced up the ureter without significant resistance. Following this, the 6-Emirati Axxess catheter was advanced over the wire to the level of the renal pelvis under fluoroscopic imaging. The Glidewire was then removed and a retrograde pyelogram was performed. There was no obvious extravasation of contrast along the course of the ureter or in the renal pelvis, by my intraoperative interpretation. At this point, the 6-Emirati Axxess catheter was used to place a double floppy- tip 0.035 Sensor wire. The Axxess catheter was removed, along with the scope, and the wire was secured to the drapes as a safety wire. Following this, the cystoscope was reintroduced and again the Axxess catheter was advanced next to the stent and safety wire up to the level of the renal pelvis. Then, dilute contrast material along with surgical jelly was injected into the renal pelvis and along the course of the ureter while gently pulling out the Axxess catheter. Following this, the rigid grasping forceps were then used to grasp the stent at the ureteral orifice, and under fluoroscopic imaging, I gently removed the stent intact slowly with minimal resistance encountered. Following this, the scope was replaced and a second retrograde pyelogram was performed at the ureter next to the safety wire. Again, no extravasation was noted. However, given the recent ureteral manipulation with several passes up and down with wires and catheters, it was felt it would be most prudent to stent his ureter for a short course of two to three days with a smaller stent. Therefore, the scope was removed and then the safety wire was back-loaded into the cystoscope, and then this wire was then used to place a 4.8-Emirati x 26 cm Percuflex Plus stent. The wire was removed. It was noted to have good coiling in the renal pelvis by fluoroscopy, and good curling in the bladder by direct vision. The scope was removed, taking care to keep the string in place. Following this, a 20-Emirati three-way Erazo catheter was placed with 20 mL in the balloon. This was begun on a slow continuous bladder irrigation. The string was then attached to a Tegaderm, which was placed around the penile shift. A B and O suppository was given at the conclusion of the case. Final fluoroscopic imaging revealed good positioning of his stent. The patient was then awakened in the operating room and taken to the recovery area in stable condition. The plan will be to keep the patient overnight on a continuous bladder irrigation as well as to start reconditioning with the aid of the hospitalist's supervision. Will plan to remove his stent via the string in approximately three days' time. JEFFREY
[2018-06-02 04:00] VITALS: BP 113/63
[2018-06-02 07:40] VITALS: BP 162/99
[2018-06-02] MEDS: APAP/HYDROCODONE 325/5 TAB PO PRN (07:50)
[2018-06-02] MEDS ORDERED: CITRIC ACID PO SCH (09:00)
[2018-06-02] MEDS ORDERED: ALLOPURINOL 300 MG TAB PO SCH (09:00)
[2018-06-02] MEDS ORDERED: TAMSULOSIN HCL 0.4 MG CAP PO SCH (09:00)
[2018-06-02] MEDS ORDERED: POTASSIUM BICARBONATE PO SCH (09:00)
[2018-06-02] MEDS ORDERED: MIRTAZAPINE 15 MG TAB PO SCH (09:00)
[2018-06-02] MEDS: DOCUSATE SODIUM 100 MG CAP PO SCH (09:02)
[2018-06-02] MEDS: METOPROLOL TART 50 MG TAB PO SCH (09:02)
--- NOTE | 2018-06-02 09:22 | Hospitalist Progress Note ---
Subjective Progress Notes Subjective No cp/sob. He wants to go home. He feels confident that he can take care of his ADL's. Physical Exam Vital Signs Date Time Temp Pulse Resp B/P (MAP) Pulse Ox O2 Delivery O2 Flow Rate FiO2 06/02/18 07:40 98.6 69 16 162/99 (120) 95 Room Air 06/02/18 04:00 0.5 Intake and Output 06/02/18 06:59 Intake Total 9818 ml Output Total 8100 ml Balance 1718 ml Intake IV Total 2718 ml Other 7100 ml Output Urine Total 1900 ml Other 6200 ml General Appearance: Alert, Awake, No Acute Distress Cardiovascular: Regular Rate and Rhythm Respiratory: Clear to Auscultation Extremities: No Edema Assessment and Plan Problems: (1) Kidney stones Status: Acute Assessment & Plan: Bilateral. Followed by Dr. Henderson. Status post cystoscopy with right stent removal and replacement on 06/01. No CV/pulmonary concerns. (2) Systolic hypertension, isolated Status: Acute Assessment & Plan: He is on chronic treatment with metoprolol. (3) Gout Status: Chronic Assessment & Plan: He is on chronic treatment with allopurinol. Central Venous Access Medical Necessity for Access: IV Access, Medication Administration Exam Sepsis Risk: No Definite Risk WILLIAM MARLOW MD Jun 02, 2018 09:22
[2018-06-02] MEDS ORDERED: LEVO250T41 PO (09:45)
[2018-06-02] MEDS ORDERED: DOCU-416 PO (09:45)
[2018-06-02 10:30] VITALS: Ht 198.1 cm; Wt 59.0 kg
[2018-06-02] MEDS ORDERED: LEVOFLOXACIN/D5W*500 MG/100 ML 100 ML IVPB SCH (16:00)
== END 2018-06-02 09:44 | disposition home or self-care (01) ==
LOC: OR 15:06 → MED 18:45
PROVIDERS: ADMIT Urology; ATTEND Urology
DX: N20.0 Calculus of kidney (principal); T83.192A Other mechanical complication of indwelling ureteral stent, initial encounter
CPT/HCPCS: 52332; 74176; 74420; A9270; C1758; C1769; C1894; C2617; G0378; J1956; J3010; J3490; J7030; Q9966

== ENCOUNTER → 2018-07-07 | Outpatient (CLI) | payer MEDICARE, BC ==
[2018-06-02 10:30] VITALS: BMI 15.0
[~2018-07-07] MED LIST changes: +LEVO250T41 PO
--- NOTE | 2018-07-07 11:40 | RADIOLOGY IMAGING REPORT ---
FACILITY: [facility] [place] PATIENT NAME: José Miguel Lara : 1945 MR: [id number] V: [id number] EXAM DATE: ORDERING PHYSICIAN: ELISHA DOHERTY TECHNOLOGIST: Location: [facility] Patient: José Miguel Lara : 1945 Visit/Account:[id number] Date of Sevice: 07/07/2018 KIDNEYS EXAMINATION: Renal ultrasound. History: Right renal hematoma history, history of renal stones and stents COMPARISON STUDIES: CT on pelvis June 01, 2018 FINDINGS: Kidneys: Right kidney- 7 x 3.3 x 4.8 cm Left kidney- 9.3 x 6.8 x 5.2 cm Uniform and symmetric blood flow in each kidney by Doppler ultrasound. Hydronephrosis: none There are numerous shadowing calculi seen within the right kidney ranging in size from 7 mm to 11 mm. There is no evidence of hydronephrosis. Perinephric hematoma previously noted on the right is not identified.. At least two shadowing calcifications are identified within the left kidney largest measuring 8.6 mm in diameter. No evidence of hydronephrosis. Bladder: Urinary bladder prevoid volume was 177 mL. The post void residual was 40 mL. Bilateral ure teral jets are present. The prostate appears prominent measuring 4.4 x 4.7 x 4.6 cm Abdominal aorta and IVC: Aorta and IVC are patent by Doppler ultrasound. IMPRESSION: Nonobstructing calculi identified in both kidneys Previously noted perinephric hematoma on the right is no longer seen Mildly prominent prostate gland Report Dictated By: Agnes Escobar MD at 07/07/2018 11:30 AM Report E-Signed By: Agnes Escobar MD at 07/07/2018 11:34 AM WSN:[email or web address]
== END ==
LOC: US 01:23
PROVIDERS: ATTEND Urology
DX: N20.0 Calculus of kidney (principal); N40.0 Benign prostatic hyperplasia without lower urinary tract symptoms
CPT/HCPCS: 76705